=== PATIENT | female | born 1930 | race Caucasian/White ===

== ENCOUNTER 2016-06-26 07:30 | Inpatient (IN) | payer MEDICARE ==
[~2016-06-26] VITALS: Ht 152.4 cm; Wt 68.5 kg
[2016-06-26] VITALS (56 sets, daily range): BP systolic 139–209; BP diastolic 56–83; PULSE 68–87; RESP 12–94; TEMP 97.2–98; O2SAT 94–100; Ht 152.4 cm; Wt 68.5 kg
[~2016-06-26 07:30] MED LIST: ACET-62 PO; AMLO5TAB2 PO; ASPI-557 PO; CALC1TAB PO; DIPH25CA84 PO; DOCU-132 PO; HYDR-4181 PO; IBUP-1724 PO; LIDOCAINE 1% (10mg/ml) 2ml SDV INJ ONE; LORA0.5T2 PO; NIAC100T3 PO; NORMAL SALINE 1,000 ML IV ONE; NOZIN NASAL SWAB NS PRN; ONDA8TAB12 PO; SIMV20TA6 PO; TRIA1CAP6 PO
--- OUTSIDE RECORDS SUMMARY | 2016-06-26 07:56 | XMS REPORT | Continuity of Care Document ---
Author Author [facility] Organization [facility] Address Unknown Phone Unavailable Support Name Relationship Address Phone MIKALA GOLDSTEIN MD Caregiver [address] [place] [address] Unavailable TYE ROSARIO MD Caregiver [address] [place] [address] Unavailable JERI TAPIA DPOA Next Of Kin [address] [place], [place] [id number] Insurance Providers Guarantor Alexi Barajas Address [address] [facility] [address] [place] [address] Email [email or web address] Payer Medicareadvantra Ppo Policy Number [id number] Subscriber's Name Alexi Barajas Relationship 18 Self Group Number [id number] Advance Directives Directive Response Recorded Date/Time Ordered Resuscitation Status Full Code 05/14/16 3:24pm Resuscitation Documents on File Yes 05/15/16 8:54am DPOA for Healthcare Only Yes 05/15/16 8:54am Living Will Yes 05/15/16 8:54am Problems Active Problems Medical Problem Onset Date Status Nausea & vomiting Unknown Acute Nausea & vomiting Unknown Acute Past Problems Medical Problem Onset Date Unstable angina Unknown Medications Current Home Medications Medication Dose Units Route Directions Days Qty Instructions Start Date Acetaminophen (Tylenol Extra Strength) 500 Mg Tablet 1,000 Mg Oral Every 8 Hours as needed for Pain 04/01/11 Amlodipine Besylate (Norvasc) 5 Mg Tablet 5 Mg Oral Daily Aspirin (Baby Aspirin) 81 Mg Tab.chew 81 Mg Oral Daily 11/02/09 Calcium Carbonate/Vitamin D3 (Calcium + D 600 Mg Tablet) 1 Tab Tablet 1 Tab Oral Twice A Day 09/22/10 Docusate Sodium (Dulcolax Stool Softener) 100 Mg Capsule 100 Mg Oral Daily as needed for Stool Softening 12/13/15 Fluoxetine Hcl 10 Mg Tablet 10 Mg Oral Daily 12/13/15 Hydralazine Hcl (Apresoline) 50 Mg Tablet 50 Mg Oral Twice A Day 03/11/10 Ipratropium [place] 21 Mcg [place] 1 [place] Each Nostril Three Times A Day as needed for Prn Orders 04/01/11 Lorazepam 0.5 Mg Tablet 0.5 Mg Oral Three Times A Day as needed for Anxiety 09/22/10 Metoprolol Tartrate 25 Mg Tablet 25 Mg Oral Daily 11/02/09 Niacin 100 Mg Tablet 100 Mg Oral Give With Breakfast as needed for Prn Orders 12/13/15 Ondansetron Hcl 8 Mg Tablet 4 Mg Oral Every 6 Hours as needed for Nausea 12/13/15 Ranitidine Hcl (Zantac) 150 Mg Tablet 150 Mg Oral Daily as needed for Acid Reflux 12/13/15 Simvastatin (Zocor) 20 Mg Tablet 20 Mg Oral Bedtime 11/02/09 Triamterene/Hydrochlorothiazid (Triamterene-Hctz 37.5/25 Tb) 1 Tab Tablet 1 Tab Oral Daily 09/22/10 Past Home Medications Medication Directions Ordered Status Acetaminophen 500 Mg , As Needed 11/02/09 Discontinued Calcium Carbonate/Vitamin D3 (Calcium 600 + D Tablet) 1 Tab Tablet, Twice A Day 11/02/09 Discontinued Clopidogrel Bisulfate (Plavix) 75 Mg Tablet, 75 Mg Oral Daily 09/22/10 Discontinued Dulcolax , As Needed 11/02/09 Discontinued Fish Oil/Sloan-3 Fatty Acids (Sloan 3 Fish Oil 1,000 Mg Cap) 1 Cap Capsule, Bedtime 01/26/08 Discontinued Hydralazine Hcl 50 Mg Tablet, Three Times A Day 11/02/09 Discontinued Ipratropium 0.06% , As Needed 11/02/09 Discontinued Ipratropium [place] 0.2 Mg/Ml Solution, 0.2 Mg Inhalation Three Times A Day 09/22/10 Discontinued Lorazepam 0.5MG , As Needed 11/02/09 Discontinued Niacin 100 Mg Tablet, Daily 11/02/09 Discontinued Ondansetron (Zofran Odt) 4 Mg/Udtablet Tab.rapdis, 4 Mg Oral Every 4-6 Hours for Nausea 07/15/13 Discontinued Solifenacin (Vesicare) 5 Mg Tablet, 5 Mg Oral 10/21/10 Discontinued Triamterene/Hydrochlorothiazid (Maxzide-25 Mg Tablet) 1 Udtab Tablet, 1 Udtab Oral Daily 09/22/10 Discontinued Triamterene/Hydrochlorothiazid (Triamterene-Hctz 37.5/25 Tb) 1 Tab Tablet, Daily 11/02/09 Discontinued Triamterene/Hydrochlorothiazid (Dyazide 37.5/25 Mg) 1 Cap Capsule, 1 Cap Oral Daily 03/11/10 Discontinued Zantac 150 , As Needed 11/02/09 Discontinued Social History Social History Problem Response Recorded Date/Time Onset Date Status Reason for Hospitalization COLONOSCOPY 05/15/2016 11:18am Not Applicable Not Applicable Chewing Tobacco Status No 07/15/2013 9:22am Not Applicable Not Applicable Hx Substance Use No 05/15/2016 9:01am Not Applicable Not Applicable Hx Alcohol Use Y WINE 2 X MO 05/15/2016 9:01am Not Applicable Not Applicable Has the pt used tobacco in the last 12 months No 05/15/2016 9:01am Not Applicable Not Applicable Tobacco Usage none 07/15/2013 10:52am Not Applicable Not Applicable Query Response Start Date Stop Date Smoking Status Former smoker Hospital Discharge Instructions Instructions: Care Instructions: I was in the hospital because (patient own words): COLONOSCOPY Discharge Diet: Resume previous diet Discharge Activity: Restricted today, as tolerated tomorrow. Follow Up Appointments: None Pending Lab / Results: No Pending Lab Expected Signs/Symptoms: None Notify Physician If: Severe abdominal pain. During Business Hours:: Please call the physician's office at [phone] and choose option 2. 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 Goldstein. Pain Management/Treatment: N/A Wound/Incision Care: N/A Condition at time of discharge: Good Plan of Care Discharge Date 05/15/16 11:55am Instructions/Education Provided [facility] Surgical Services Colonoscopy (DC) Prescriptions See Medication Section Functional Status Query Response Date Recorded Ability to complete ADL's impeded by No change May 15, 2016 8:54am Allergies, Adverse Reactions, Alerts Allergen Type Severity Reaction Status Last Updated Codeine Adverse Reaction Unknown UPSET STOMACH Active 05/15/16 Immunizations Query Response on File Recorded Date/Time Hx Influenza Vaccination Y 201505/15/16 9:01am Hx Pneumococcal Vaccination Y WITH IN 5 YRS 05/15/16 9:01am Hx Tetanus, Diptheria, Pertussis Yes 07/15/13 9:22am Hx Influenza Vaccination Y 201505/15/16 9:01am Hx Tetanus, Diptheria, Pertussis Yes 07/15/13 9:22am Vital Signs Acute Vital Signs Vital Response Date/Time Temperature (Fahrenheit) 98.0 deg F (96.8 - 99.1) 05/15/2016 11:25am Temperature (Calculated Celsius) 36.43262 degrees C (36.0 - 37.3) 05/15/2016 11:25am Temperature Source Oral 05/15/2016 11:25am Pulse Rate (adult) 68 bpm (60 - 100) 05/15/2016 11:40am Respiratory Rate 16 breaths/min (10 - 20) 05/15/2016 11:40am O2 Sat by Pulse Oximetry 98 % (90 - 100) 05/15/2016 11:40am Oxygen Delivery Method Room Air 05/15/2016 11:40am Blood Pressure 136/68 mm Hg 05/15/2016 11:40am Blood Pressure Source Automatic Cuff 05/15/2016 11:40am Height (Feet) 5 feet 05/15/2016 8:31am Height (Inches) 0.50 inches 05/15/2016 8:31am Weight (Kilograms) 65.200 kg 05/15/2016 8:31am Body Mass Index (BMI) 27.6 05/15/2016 8:31am Results Laboratory Results Test Name Result Units Flags Reference Collection Date/Time Result Date/ Time Comments White Blood Count 9.1 T/MM3 4.5-11.0 04/23/2016 12:10pm 04/23/2016 12: 50pm Red Blood Count 4.71 M/MM3 4.00-5.20 04/23/2016 12:10pm 04/23/2016 12: 50pm Hemoglobin 12.0 GM/DL 12-16 04/23/2016 12:10pm 04/23/2016 12:50pm Hematocrit 38.4 % 36-46 04/23/2016 12:10pm 04/23/2016 12:50pm Mean Corpuscular Volume 81.5 UM3 80-100 04/23/2016 12:10pm 04/23/2016 12:50pm Mean Corpuscular Hemoglobin 25.5 UUG L 26-34 04/23/2016 12:10pm 2016 12:50pm Mean Corpuscular Hemoglobin Concent 31.3 GM/DL 31-37 04/23/2016 12:10pm 04/23/2016 12:50pm RDW Standard Deviation 43.2 FL 36.9-50.2 04/23/2016 12:10pm 04/23/2016 12:50pm Platelet Count 288 T/MM3 130-400 04/23/2016 12:10pm 04/23/2016 12:50pm Mean Platelet Volume 10.5 UM3 9.4-12.4 04/23/2016 12:10pm 04/23/2016 12 :50pm Neutrophils (%) (Auto) 75.9 % H 33-66 04/23/2016 12:10pm 04/23/2016 12: 50pm Lymphocytes (%) (Auto) 16.1 % L 23-45 04/23/2016 12:10pm 04/23/2016 12: 50pm Monocytes (%) (Auto) 6.3 % 0-9.0 04/23/2016 12:10pm 04/23/2016 12:50pm Eosinophils (%) (Auto) 1.5 % 0-4 04/23/2016 12:10pm 04/23/2016 12:50pm Basophils (%) (Auto) 0.1 % 0-2 04/23/2016 12:10pm 04/23/2016 12:50pm Immature Granulocyte % (Auto) 0.1 % 0.0-0.5 04/23/2016 12:10pm 2016 12:50pm Absolute Neutrophils (auto) 6.9 T/MM3 1.8-7.7 04/23/2016 12:10pm 2016 12:50pm Absolute Lymphocytes (auto) 1.5 T/MM3 1-4.8 04/23/2016 12:10pm 2016 12:50pm Absolute Monocytes (auto) 0.6 T/MM3 0-0.8 04/23/2016 12:10pm 2016 12:50pm Absolute Eosinophils (auto) 0.1 T/MM3 0-0.5 04/23/2016 12:10pm 2016 12:50pm Absolute Basophils (auto) 0.0 T/MM3 0-0.2 04/23/2016 12:10pm 2016 12:50pm Absolute Immature Granulocyte (auto 0.01 T/MM3 0.00-0.03 04/23/2016 12: 10pm 04/23/2016 12:50pm Icterus Index < 2 0-7 04/23/2016 12:10pm 04/23/2016 12:59pm Chemistry Specimen Hemolysis < 15 0-25 04/23/2016 12:10pm 04/23/2016 12:59pm 0-25: Specimen Exhibited No Hemolysis. Turbidity < 20 0-20 04/23/2016 12:10pm 04/23/2016 12:59pm Sodium Level 143 MEQ/L 134-144 04/23/2016 12:10pm 04/23/2016 12:59pm Potassium Level 4.3 MEQ/L 3.6-5 04/23/2016 12:10pm 04/23/2016 12:59pm Chloride Level 105 MEQ/L 98-107 04/23/2016 12:10pm 04/23/2016 12:59pm Carbon Dioxide Level 26 MEQ/L 22-30 04/23/2016 12:10pm 04/23/2016 12: 59pm Anion Gap 12 MEQ/L 5-15 04/23/2016 12:10pm 04/23/2016 12:59pm Blood Urea Nitrogen 24.0 MG/DL H 7-17 04/23/2016 12:10pm 04/23/2016 12: 59pm Creatinine 1.0 MG/DL 0.7-1.2 04/23/2016 12:10pm 04/23/2016 12:59pm BUN/Creatinine Ratio 24 RATIO 6-26 04/23/2016 12:10pm 04/23/2016 12: 59pm Glomerular Filtration Rate Calc 53 04/23/2016 12:10pm 04/23/2016 12 :59pm Glucose Level 103 MG/DL 65-110 04/23/2016 12:10pm 04/23/2016 12:59pm Calculated Osmolality 279 MOSM/KG 261-280 04/23/2016 12:10pm 2016 12:59pm Calcium Level 9.3 MG/DL 8.4-10.2 04/23/2016 12:10pm 04/23/2016 12:59pm Total Bilirubin 0.60 MG/DL 0.20-1.30 04/23/2016 12:10pm 04/23/2016 12: 59pm Alkaline Phosphatase 92 U/L 38-126 04/23/2016 12:10pm 04/23/2016 12: 59pm Total Protein 7.2 G/DL 6.3-8.2 04/23/2016 12:10pm 04/23/2016 12:59pm Albumin 4.3 G/DL 3.5-5.0 04/23/2016 12:10pm 04/23/2016 12:59pm Globulin 2.9 G/DL 2.4-3.6 04/23/2016 12:10pm 04/23/2016 12:59pm Albumin/Globulin Ratio 1.5 RATIO 1.1-2.2 04/23/2016 12:10pm 04/23/2016 12:59pm Aspartate Amino Transf (AST/SGOT) 24 U/L 14-36 04/23/2016 12:10pm 04/23 12:59pm Alanine Aminotransferase (ALT/SGPT) 26 U/L 9-52 04/23/2016 12:10pm 03/2017 12:59pm Procedures Procedure Status Date Provider(s) Ct abd & pelv w/contrast Completed 04/27/16 995943"INFUSION, NORMAL SALINE SOLUTION , 250 CC" Completed 04/27/16 [id number]"LOW OSMOLAR CONTRAST MATERIAL, 300-399 MG/ML IODINE C Completed X-ray exam of shoulder Completed 04/23/16 Ct thorax w/o dye Completed 05/04/16 Colonoscopy with polypectomy and biopsy Completed 05/15/16 MIKALA GOLDSTEIN MD Encounters Encounter Location Arrival/Admit Date Discharge/Depart Date Attending Provider Registered [facility] 05/15/16 8:04am MIKALA GOLDSTEIN MD Registered [facility] 05/04/16 2:22pm TYE ORSARIO MD Registered [facility] 04/27/16 12:21pm TYE ROSARIO MD Registered [facility] 04/23/16 12:37pm TYE ROSARIO MD Registered [facility] 04/23/16 12:23pm TYE ROSARIO MD
--- OUTSIDE RECORDS SUMMARY | 2016-06-26 07:56 | XMS REPORT | Referral Summary ---
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 Name Role Phone Eva Duval Primary Care Physician [phone] Encounter VC Date(s): 05/27/16 - 05/27/16 [facility] [address] [place], [place] [address] Discharge Disposition: 01-Home or Self Care Attending Physician: Rickey Jimenes MD Admitting Physician: Rickey Jimenes MD Vital Signs Most recent to 1 oldest [Reference Range]: Temperature Temporal 36.4 degC Artery [36.3-37.8 (05/27/16 9:23 AM) degC] Peripheral Pulse 81 bpm Rate [60-100 bpm] (05/27/16 6:06 AM) Heart Rate Monitored 55 bpm [60-100 bpm] *LOW* (05/27/16 9:23 AM) Respiratory Rate 16 br/min [14-20 br/min] (05/27/16 9:23 AM) Blood Pressure 182/58 mmHg [90-140/60-90 mmHg] *HI* (05/27/16 9:23 AM) Mean Arterial 114 mmHg Pressure, Cuff (05/27/16 9:23 AM) SpO2 96 % (05/27/16 9:23 AM) Problem List Condition Effective Dates Status Health Status Informant Acute Resolved pain(Confirmed) Anxiety(Confirmed) Active patient Coronary artery Active patient disease(Confirmed) Hyperlipidemia(Confi Active patient rmed) Hypertension(Confirm Active patient ed) Oxygen Active patient deficiency(Confirmed )1 Breast 12/14/79 Active patient cancer(Confirmed) Depression(Confirmed Active patient ) Tissue perfusion Resolved alteration(Confirmed )2 1WEARS OXYGEN AT HS 2Problem added automatically by system based on initiation of Tissue Perfusion Cerebral Plan of Care Allergies, Adverse Reactions, Alerts Substance Reaction Severity Status codeine Active Dust Active Medications acetaminophen 500 mg oral tablet 500 mg 1 tabs, Oral, q4hr, as needed for pain, # 50 tabs, 0 Refill(s) Start Date: 05/27/16 Status: Ordered amLODIPine 5 mg oral tablet 5 mg 1 tabs, Oral, Daily, 0 Refill(s) Start Date: 12/14/15 Status: Ordered aspirin 81 mg, Oral, Daily, 0 Refill(s) Start Date: 12/14/15 Status: Ordered calcium-vitamin D 500 mg-200 intl units oral tablet 1 tabs, Oral, BID, # 60 tabs, 0 Refill(s) Start Date: 05/27/16 Status: Ordered Dulcolax Stool Softener 100 mg oral capsule 100 mg 1 caps, Oral, BID, as needed for constipation, # 20 caps, 0 Refill(s) Start Date: 05/27/16 Status: Ordered hydrALAZINE 50 mg oral tablet 50 mg 1 tabs, Oral, BID, 0 Refill(s) Start Date: 12/14/15 Status: Ordered ibuprofen 200 mg oral capsule 400 mg 2 caps, Oral, q4hr, as needed for pain, # 120 caps, 0 Refill(s) Start Date: 05/27/16 Status: Ordered ipratropium 21 mcg/inh (0.03%) nasal spray 1 sprays, Nasal, TID, Nasal Congestion, 0 Refill(s) Start Date: 12/14/15 Status: Ordered LORazepam 0.5 mg oral tablet 0.5 mg 1 tabs, Oral, TID, as needed for anxiety, 0 Refill(s) Start Date: 12/14/15 Status: Ordered simvastatin 20 mg oral tablet 20 mg 1 tabs, Oral, Bedtime (once a day), 0 Refill(s) Start Date: 12/14/15 Status: Ordered triamterene-hydrochlorothiazide 37.5 mg-25 mg oral tablet 1 tabs, Oral, Daily, 0 Refill(s) Start Date: 12/14/15 Status: Ordered Zantac 150 mg, Oral, Daily, ACID REFLUX, 0 Refill(s) Start Date: 05/27/16 Status: Ordered Zofran 4 mg oral tablet 4 mg 1 tabs, Oral, q4hr, Nausea or Vomiting | as needed for nausea/vomiting, # 10 tabs, 0 Refill(s) Start Date: 05/27/16 Status: Ordered Results Hematology Most recent to 1 oldest [Reference Range]: WBC [4.8-10.8 12.2 10*3/uL 10*3/uL] *HI* (05/27/16 6:09 AM) RBC [4.00-5.20] 4.82 (05/27/16 6:09 AM) Hgb [12.0-16.0 11.7 gm/dL gm/dL] *LOW* (05/27/16 6:09 AM) Hct [37.0-47.0 %] 38.7 % (05/27/16 6:09 AM) MCV [82.0-99.0 fL] 80.3 fL *LOW* (05/27/16 6:09 AM) MCH [27.0-32.0 pg] 24.3 pg *LOW* (05/27/16 6:09 AM) MCHC [32.0-36.0 30.2 gm/dL gm/dL] *LOW* (05/27/16 6:09 AM) RDW [11.5-14.5 %] 15.9 % *HI* (05/27/16 6:09 AM) Platelet [150-400 269 10*3/uL 10*3/uL] (05/27/16 6:09 AM) MPV [9.4-12.4 fL] 10.2 fL (05/27/16 6:09 AM) Immature 0.4 % Granulocytes (05/27/16 6:09 AM) [0.0-1.0 %] Neutrophils [51-75 79 % %] *HI* (05/27/16 6:09 AM) Lymphocytes [20-46 13 % %] *LOW* (05/27/16 6:09 AM) Monocytes [4-11 %] 7 % (05/27/16 6:09 AM) Eosinophils [0-4 %] 1 % (05/27/16 6:09 AM) Basophils [0-2 %] 0 % (05/27/16 6:09 AM) Neutro Absolute 9.68 [1.90-7.00] *HI* (05/27/16 6:09 AM) Lymph Absolute 1.54 [0.80-3.30] (05/27/16 6:09 AM) [place] Absolute 0.80 [0.30-1.00] (05/27/16 6:09 AM) Eos Absolute 0.14 [0.00-0.50] (05/27/16 6:09 AM) Baso Absolute 0.02 [0.00-0.20] (05/27/16 6:09 AM) Nucleated RBC 0.0 /100 WBC Automated [0 /100 (05/27/16 6:09 AM) WBC] Coagulation Most recent to 1 oldest [Reference Range]: INR [0.9-1.2] 1.0 (05/27/16 6:09 AM) PTT [25.0-35.0 25.8 seconds seconds] (05/27/16 6:09 AM) Immunizations No data available for this section Procedures Procedure Date Related Diagnosis Body Site Catheterization Left Heart with Coronary 12/15/15 Angiography1 Back fusion 12/12/09 CABG x 3 - Coronary artery bypass grafts x 3 12/12/06 Cholecystectomy 12/13/79 Appendectomy Back Breast lumpectomy2 Cataracts Procedure3 Shoulder4 Surgery5 Total abdominal hysterectomy 1auto-populated from documented surgical case 2RIGHT 3LEFT BREAST NODE DISSECTION 4RIGHT 5IT BAND RELEASE Social History Social History Type Response Smoking Status Former smoker; Number of years: 20 Assessment and Plan No data available for this section"
--- OUTSIDE RECORDS SUMMARY | 2016-06-26 07:56 | XMS REPORT | Continuity of Care Document ---
Author Author [facility] Organization [facility] Address Unknown Phone Unavailable Support Name Relationship Address Phone MIKALA GOLDSTEIN MD Caregiver [address] [place] [address] Unavailable TYE ROSARIO MD Caregiver [address] [place] [address] Unavailable JERI TAPIA DPOA Next Of Kin [address] [place], [place] [id number] Insurance Providers Guarantor Alexi Barajas Address [address] [facility] [address] [place] [address] Email [email or web address] Payer Medicareadvantra Ppo Policy Number [id number] Subscriber's Name JuanAlexi Relationship 18 Self Group Number [id number] Advance Directives Directive Response Recorded Date/Time Resuscitation Documents on File Yes 06/15/16 9:08am DPOA for Healthcare Only Yes 06/15/16 9:08am Living Will Yes 06/15/16 9:08am Problems Active Problems Medical Problem Onset Date Status Nausea & vomiting Unknown Acute Nausea & vomiting Unknown Acute Past Problems Medical Problem Onset Date Unstable angina Unknown Medications Current Home Medications Medication Dose Units Route Directions Days Qty Instructions Start Date Acetaminophen 500 Mg Tablet 1-2 Tab Oral As Needed as needed for Pain Do not exceed 3,200 mg of acetaminophen in a 24 hours period. 06/15/16 Amlodipine Besylate 5 Mg Tablet 5 Mg Oral Daily 06/15/16 Aspirin (Aspir 81) 81 Mg Tablet. 1 Tab Oral Daily 06/15/16 Calcium Carbonate/Vitamin D3 (Caltrate 600 + D Tablet) 1 Each Tablet 1 Tab Oral Twice A Day 06/15/16 Diphenhydramine Hcl (Benadryl) 25 Mg Capsule 1-2 Cap Oral Every 6 Hours as needed for Allery Symptoms 06/15/16 Docusate Sodium (Dulcolax Stool Softener) 100 Mg Capsule 1 Cap Oral Daily as needed for Stool Softening 06/15/16 Hydralazine Hcl 50 Mg Tablet 1 Tab Oral Twice Daily With Meals BEST TAKEN WITH MEALS. 06/15/16 Ibuprofen 200 Mg Tablet 1-2 Tab Oral Every 4 Hours as needed for Pain 06/15/16 Ipratropium 0.06% 1 [place] Each Nostril As Needed 06/15/16 Lorazepam 0.5 Mg Tablet 0.5 Mg Oral Daily as needed for Anxiety 06/15/16 Niacin 100 Mg Tablet 1 Tab Oral As Needed 06/15/16 Ondansetron (Ondansetron Odt) 8 Mg Tab.rapdis 0.5 Tab Oral Every 6 Hours as needed for Nausea 06/15/16 Ranitidine Hcl (Zantac) 150 Mg Tablet 150 Mg Oral Daily as needed for Acid Reflux 06/15/16 Simvastatin 20 Mg Tablet 20 Mg Oral Bedtime Take 1 tablet, by mouth , 1 time a day (at BEDTIME). 06/15/16 Triamterene/Hydrochlorothiazid (Triamterene-Hctz 37.5-25 Mg Cp) 1 Each Capsule 1 Cap Oral Daily 06/15/16 Past Home Medications Medication Directions Ordered Status Acetaminophen 500 Mg , As Needed 11/02/09 Discontinued Calcium Carbonate/Vitamin D3 (Calcium 600 + D Tablet) 1 Tab Tablet, Twice A Day 11/02/09 Discontinued Clopidogrel Bisulfate (Plavix) 75 Mg Tablet, 75 Mg Oral Daily 09/22/10 Discontinued Dulcolax , As Needed 11/02/09 Discontinued Fish Oil/[place]-3 Fatty Acids ([place] 3 Fish Oil 1,000 Mg Cap) 1 Cap Capsule, Bedtime 01/26/08 Discontinued Hydralazine Hcl 50 Mg Tablet, Three Times A Day 11/02/09 Discontinued Ipratropium 0.06% , As Needed 11/02/09 Discontinued Ipratropium [place] 0.2 Mg/Ml Solution, 0.2 Mg Inhalation Three [...] Problem Response Recorded Date/Time Onset Date Status Chewing Tobacco Status No 07/15/2013 9:22am Not Applicable Not Applicable Hx Substance Use No 05/15/2016 9:01am Not Applicable Not Applicable Hx Alcohol Use Y WINE 2 X MO 05/15/2016 9:01am Not Applicable Not Applicable Has the pt used tobacco in the last 12 months No 06/15/2016 9:14am Not Applicable Not Applicable Tobacco Usage none 07/15/2013 10:52am Not Applicable Not Applicable Query Response Start Date Stop Date Smoking Status Former smoker Hospital Discharge Instructions Current inpatient/outpatient. Discharge instructions are currently unavailable. Plan of Care Current inpatient/outpatient. The plan of care is currently unavailable Functional Status Query Response Date Recorded Mobility Status Ambulatory June 15, 2016 9:38am Assistive Devices None June 15, 2016 9:38am Activity Limitations None June 15, 2016 9:38am Feeding Ability Independent June 15, 2016 9:38am Toileting Ability Independent June 15, 2016 9:38am Grooming Ability Independent June 15, 2016 9:38am Dressing Ability Independent June 15, 2016 9:38am Driving Ability Independent June 15, 2016 9:38am Housework Ability Independent June 15, 2016 9:38am Meal Preparation Ability Independent June 15, 2016 9:38am Stair Climbing Ability Independent June 15, 2016 9:38am Ability to complete ADL's impeded by No change June 15, 2016 9:38am Cognitive/Perceptual Impairments Impaired vision Impaired hearing June 15, 2016 9:38am Visual Assistive Devices Glasses With patient June 15, 2016 9:38am Hearing Assistive Devices Left hearing aid Right hearing aid With patient June 15, 2016 9:38am Preferred Method of Learning Reading Demonstration Listening June 15, 2016 9:38am Allergies, Adverse Reactions, Alerts Allergen Type Severity Reaction Status Last Updated Codeine Adverse Reaction Unknown UPSET STOMACH Active 06/15/16 Immunizations Query Response on File Recorded Date/Time Hx Influenza Vaccination Y 201506/15/16 9:14am Hx Pneumococcal Vaccination Y 201306/15/16 9:14am Hx Tetanus, Diptheria, Pertussis Yes 07/15/13 9:22am Hx Influenza Vaccination Y 201506/15/16 9:14am Hx Tetanus, Diptheria, Pertussis Yes 07/15/13 9:22am Vital Signs Acute Vital Signs Vital Response Date/Time Temperature (Fahrenheit) 95.9 deg F (96.8 - 99.1) 06/15/2016 12:40pm Temperature (Calculated Celsius) 35.73776 degrees C (36.0 - 37.3) 06/15/2016 12:40pm Temperature Source Oral 06/15/2016 12:40pm Pulse Rate (adult) 63 bpm (60 - 100) 06/15/2016 2:00pm Respiratory Rate 20 breaths/min (10 - 20) 06/15/2016 12:40pm O2 Sat by Pulse Oximetry 96 % (90 - 100) 06/15/2016 2:00pm Oxygen Delivery Method Room Air 06/15/2016 2:00pm Oxygen Delivery Method Room Air 06/15/2016 9:00am Blood Pressure 146/57 mm Hg 06/15/2016 2:00pm Blood Pressure Source Automatic Cuff 06/15/2016 2:00pm Height (Feet) 5 feet 06/15/2016 10:18am Height (Inches) 0.50 inches 06/15/2016 10:18am Weight (Kilograms) 66.700 kg 06/15/2016 10:18am Body Mass Index (BMI) 28.3 06/15/2016 10:18am Results Laboratory Results Test Name Result Units [...] 26 U/L 9-52 04/23/2016 12:10pm 03/2017 12:59pm Carcinoembryonic Antigen 11.30 UG/L H 0-3.0 05/15/2016 11:48am 2016 12:44pm Prothromb Time International Ratio 1.06 H 0.76-1.04 06/15/2016 10:20am 06/15/2016 10:39am THERAPUTIC RANGE=2.00-3.00 FOR ANTI-THROMBOSIS THERAPUTIC RANGE=2.50-3.50 FOR IMPLANTED VALVE Name: ALEXI BARAJAS Unit #: [id number] : 1930 Sex: F Admit Date: Loc / Svc: ANTOINETTE Discharge Date: DIAGNOSTIC IMAGING REPORT Report #: [id number] [facility] CRISTY Roche Indication: ITS.REASON: E04.1 NONTOXIC SINGLE THYROID NODULE PROCEDURE: US THYROID: Encounter: Initial Comparison: None Technique: High-resolution sonography of the thyroid gland utilizing grayscale and color flow imaging was performed. Right lobe: 3.2 x 1.3 x 1.2 cm. Complex predominantly solid nodule involving the inferior anterior aspect of the right lobe measures 1.3 x 1.2 x 0.8 cms. It is fairly well-defined without calcifications. A second small cystic lesion is seen measuring 4 mm which appears to lie medial to the larger nodule. Left lobe: 3.2 x 1.2 x 0.9 cms. Homogeneous echotexture. No mass or nodule. Isthmus: 3.0 mm AP dimension; no masses or nodules. Impression: Two nodular foci of the right thyroid lobe; the larger one is is complex measuring 1.3 cm greatest dimension without highly suspicious features; this is an indeterminate nodule and recommend six month sonographic follow-up/surveillance. . Procedures Procedure Status Date Provider(s) Ct abd & pelv w/contrast Completed 04/27/16952874"INFUSION, NORMAL SALINE SOLUTION , 250 CC" Completed 04/27/16701622"LOW OSMOLAR CONTRAST MATERIAL, 300-399 MG/ML IODINE C Completed X-ray exam of shoulder Completed 04/23/16 Ct thorax w/o dye Completed 05/04/16 Routine venipuncture Completed 05/15/16 Colonoscopy and biopsy Completed 05/15/16 MIKALA GOLDSTEIN MD Colonoscopy w/lesion removal Completed 05/15/16 MIKALA GOLDSTEIN MD Carcinoembryonic antigen Completed 05/15/16 Tissue exam by pathologist Completed 05/15/16 Immunohisto antb addl slide Completed 05/15/16 Immunohisto antb 1st stain Completed 05/15/16 PROPOFOL INJ 500 MG/50ML Completed 05/15/16 [id number]"INFUSION, NORMAL SALINE SOLUTION , 1000 CC" Completed 05/15/16 Encounters Encounter Location Arrival/Admit Date Discharge/Depart Date Attending Provider Registered [facility] 06/15/16 8:50am MIKALA GOLDSTEIN MD Departed [facility] 06/15/16 8:49am 06/15/16 2:35pm LISA LOPES DO Registered [facility] 06/10/16 8:13am MIKALA GOLDSTEIN MD Departed [facility] 05/15/16 8:04am 05/15/16 11 :55am MIKALA GOLDSTEIN MD Registered [facility] 05/04/16 2:22pm TYE ROSARIO MD Registered [facility] 04/27/16 12:21pm TYE ROSARIO MD Registered [facility] 04/23/16 12:37pm TYE ROSARIO MD Registered [facility] 04/23/16 12:23pm TYE ROSARIO MD
[2016-06-26] MEDS ORDERED: ERTAPENEM 1 G in NORMAL SALINE 100 ML IV ONE (08:00)
[2016-06-26] MEDS ORDERED: ENOXAPARIN 40 MG/0.4 ML INJECTION SQ ONE (08:00)
[2016-06-26 08:33] LABS: BASOPHILS % (AUTO) 0.2 % (0-2); EOSINOPHILS # (AUTO) 0.1 T/MM3 (0-0.5); EOSINOPHILS % (AUTO) 0.9 % (0-4); HCT - HEMATOCRIT 38.3 % (36-46); IMMATURE GRANULOCYTE # (AUTO) 0.02 T/MM3 (0.00-0.03); IMMATURE GRANULOCYTE % (AUTO) 0.2 % (0.0-0.5); LYMPHOCYTES # (AUTO) 1.1 T/MM3 (1-4.8); LYMPHOCYTES % (AUTO) 9.2 % (23-45); MEAN CORPUSCULAR HGB 24.1 UUG (26-34); MEAN CORPUSCULAR HGB CONC(MCHC 31.3 GM/DL (31-37); MEAN CORPUSCULAR VOLUME 77.1 UM3 (80-100); MEAN PLATELET VOLUME 10.1 UM3 (9.4-12.4); MONOCYTES # (AUTO) 0.6 T/MM3 (0-0.8); MONOCYTES % (AUTO) 5.5 % (0-9.0); NEUTROPHILS #(AUTO)-ABSOLUTE 9.6 T/MM3 (1.8-7.7); RED BLOOD COUNT 4.97 M/MM3 (4.00-5.20); WBC - WHITE BLOOD COUNT 11.4 T/MM3 (4.5-11.0)
[2016-06-26 08:42] LABS: ALBUMIN 4.3 G/DL (3.5-5.0); ALBUMIN/GLOBULIN RATIO 1.2 RATIO (1.1-2.2); ALKALINE PHOSPHATASE 100 U/L (38-126); ALT (SGPT) 22 U/L (9-52); ANION GAP 13 MEQ/L (5-15); AST (SGOT) 24 U/L (14-36); BUN/CREATININE RATIO 18 RATIO (6-26); CALCIUM 9.9 MG/DL (8.4-10.2); CHLORIDE 110 MEQ/L (98-107); CO2 - CARBON DIOXIDE 24 MEQ/L (22-30); CREATININE 0.9 MG/DL (0.7-1.2); GLOMERULAR FILTRATION RATE 59; GLUCOSE 123 MG/DL (65-110); POTASSIUM 3.3 MEQ/L (3.6-5); SODIUM 147 MEQ/L (134-144); TOTAL PROTEIN 7.8 G/DL (6.3-8.2)
[2016-06-26] MEDS: ENOXAPARIN 40 MG/0.4 ML INJECTION SQ SCH (09:00)
[2016-06-26] MEDS ORDERED: FENTANYL 250mcg/5ml INJECTION ONE ×2 (09:44→11:44)
[2016-06-26] MEDS ORDERED: MIDAZOLAM 2mg/2ml INJECTION ONE (09:44)
[2016-06-26] MEDS ORDERED: ROCURONIUM 50mg/5ml INJECTION IV ONE ×2 (09:46→11:00)
[2016-06-26] MEDS ORDERED: PROPOFOL 200mg 20 ML IV ONE (09:46)
[2016-06-26] MEDS ORDERED: LIDOCAINE (2%) 100 MG/5 ML PF SYRINGE IV ONE (09:46)
[2016-06-26] MEDS ORDERED: EPHEDRINE SULFATE 50mg/ml INJECTION ONE (10:15)
[2016-06-26] MEDS ORDERED: SALINE FLUSH 10ml SYRINGE ONE ×2 (10:15→12:35)
[2016-06-26] MEDS ORDERED: HYDROMORPHONE 2mg/ml INJECTION ONE (10:59)
[2016-06-26] MEDS ORDERED: DEXAMETHASONE 4mg/ml - 1ml INJECTION IV ONE (11:00)
[2016-06-26] MEDS ORDERED: SALINE FLUSH 10ml SYRINGE IVF ONE ×2 (11:00)
[2016-06-26] MEDS ORDERED: FENTANYL 250mcg/5ml INJECTION IV ONE ×2 (11:00)
[2016-06-26] MEDS ORDERED: ONDANSETRON 4mg/2ml INJECTION IV ONE (11:00)
[2016-06-26] MEDS ORDERED: MIDAZOLAM 2mg/2ml INJECTION IV ONE (11:00)
[2016-06-26] MEDS ORDERED: SUGAMMADEX 200 MG/2 ML INJECTION IV ONE ×2 (11:00→12:22)
[2016-06-26] MEDS ORDERED: HYDROMORPHONE 2mg/ml INJECTION IV ONE (11:00)
[2016-06-26] MEDS ORDERED: LIDOCAINE 2% (20mg/ml) 5ml PF SDV INFIL ONE (11:00)
[2016-06-26] MEDS ORDERED: EPHEDRINE SULFATE 50mg/ml INJECTION IM ONE (11:00)
--- NOTE | 2016-06-26 11:33 | ANESPREOP ---
Anesthesia Record Date and Time DATE: 06/26/16 TIME: 11:31 Proposed Surgical Procedure LAPAROTOMY WITH OPEN RIGHT HEMICOLECTOMY Allergies: Coded Allergies: codeine (Unverified Adverse Reaction, Unknown, UPSET STOMACH, 06/25/16) Ht/Wt/BMI Height: 5 ' 0.00 " Weight: 64.500 kg BMI: 27.8 kg/m2 Vital Signs Date Time Temp Pulse Resp B/P Pulse Ox O2 Delivery O2 Flow Rate FiO2 06/26/16 08:16 98.0 83 14 182/78 98 Room Air Medications Inpatient Medications Current Medications Medications (Trade) Dose Ordered Sig/Caty Start Time Stop Time Status Last Admin Dose Admin Multi-Ingredient Antiseptic (Nozin Nasal Swab) 3 each PREOP PRN 06/26/16 07:00 06/26/16 09:19 3 EACH Acetaminophen (Acetaminophen) 500 Mg Tablet, 1-2 TAB PO PRN PRN for PAIN, ( Reported) Do not exceed 3,200 mg of acetaminophen in a 24 hours period. Last Taken: on 06/24/16 Amlodipine Besylate (Amlodipine Besylate) 5 Mg Tablet, 5 MG PO DAILY, (Reported) Last Taken: on 06/25/16 Aspirin (Aspir 81) 81 Mg Tablet.dr, 1 TAB PO DAILY, (Reported) Last Taken: on 06/22/16 Calcium Carbonate/Vitamin D3 (Caltrate 600 + D Tablet) 1 Each Tablet, 1 TAB PO BID, (Reported) Diphenhydramine HCl (Benadryl) 25 Mg Capsule, 1-2 CAP PO Q6H PRN for ALLERY SYMPTOMS, (Reported) Docusate Sodium (Dulcolax Stool Softener) 100 Mg Capsule, 1 CAP PO DAILY PRN for STOOL SOFTENING, (Reported) Last Taken: on 06/25/16 Hydralazine HCl (Hydralazine HCl) 50 Mg Tablet, 1 TAB PO BIDWM, (Reported) BEST TAKEN WITH MEALS. Last Taken: on 06/24/16 Ibuprofen (Ibuprofen) 200 Mg Tablet, 1-2 TAB PO Q4H PRN for PAIN, (Reported) Last Taken: on 06/25/16 Lorazepam (Lorazepam) 0.5 Mg Tablet, 0.5 MG PO DAILY PRN for ANXIETY, (Reported) Last Taken: on 06/26/16 0600 Niacin (Niacin) 100 Mg Tablet, 1 TAB PO PRN, ( Reported) Ondansetron (Ondansetron Odt) 8 Mg Tab.rapdis, 0.5 TAB PO Q6H PRN for NAUSEA, ( Reported) Simvastatin (Simvastatin) 20 Mg Tablet, 20 MG PO HS, (Reported) Take 1 tablet, by mouth, 1 time a day (at BEDTIME). Last Taken: on 06/24/16 Triamterene/Hydrochlorothiazid (Triamterene-Hctz 37.5-25 mg Cp) 1 Each Capsule, 1 CAP PO DAILY, (Reported) Last Taken: on 06/24/16 Currently on Beta Gabriela: No Medical/Surgical History Anesthesia PMH: Reports: *Angina (2015-HEART CATH. NEG. NOT CARDIAC RELATED), *Hypertension (TAKES MEDS), Anesthesia Reactions (N/V, SLOW WAKING UP, NO AIRWAY ISSUES), Arthritis (GENERALIZED), Cancer (ZAKI BREAST CANCER), Hiatal Hernia (HX), Reflux (HX), Denies: *Diabetes, *TX, Asthma, Blood Transfusion Reac , CHF, COPD, CVA/Stroke/TIA, Clotting Problems, Deep Vein Thrombosis, Glaucoma, Hepatitis, Malignant Hyperthermia, Pacemaker, Pneumonia, Renal Disease, Rheumatic Fever, Seizures, Sleep Apnea (USES 02 @ 1L/NC AT [facility]), Thyroid Disease , Tuberculosis Smoking Status: Former smoker (30 years ago) Has pt. smoked today?: No # of Packs per Day: 1 # of Years: 34 Use Chewing Tobacco?: No Second Hand Exposure: No Substance Use Type: does not use Alcohol Intake: a few times a month Last Drink: unknown HX of Last Menstrual Period: HYST. Past Surgical History Orthopedic Surgeries: Yes - ORIF HUMERUS; RT SHOULDER SCOPE,BACK FUSION Abdominal Surgeries: Yes - BENITO; APPY Genitourinary Surgeries: Cardiac Surgeries: Yes - TRIPLE BYPASS/ CAROTID ARTERY, HEART CATHETERIZATION Endocrine Surgeries: No Reproductive Surgeries: Yes - HYSTERECTOMY Neurological Surgeries: Yes - ELECTROENCEPHALOGRAPHY Ear Surgeries: No Nose Surgeries: No Throat Surgeries: Yes - TONSILLECTOMY Other Surgeries: Yes - PORTACATH; ZAKI LUMPECTOMY; CATARRACT ZAKI, EGD, IT BAND RELEASE Anesthesia Adverse Reactions: FOUND nausea and vomiting Family Hx of Anesthesia Advers: none Hx of Motion Sickness: No Pertinent Findings Laboratory Tests 06/26/16 08:23 EKG Rhythm: Sinus Rhythm Physical Exam Respiratory: Lungs clear Cardiovascular: FOUND Regular rate, rhythm Airway Assessment Mallampati Score: II TMD: 3 Fingerbreadths Neck Extension: Fair Overall Assessment: No Airway Concerns ASA: 3 Plan Anesthesia Plan: GETA Discussion Discussed risks/options/alternatives of anesthesia and questions answered. Patient consents. Nursing pain assessment noted. Present: Family Member, Friend Attestation Statement Prior to the delivery of any anesthetic medication, I examined the patient, developed the plan, obtained the patient's consent and discussed the risk and benefits of the procedure with the patient/guardian. Additional Information Pt very hard of hearing- has hearing aid in with a microphone to speak into. KARINA VILLAR CRNA Jun 26, 2016 11:33
[2016-06-26] MEDS ORDERED: ONDANSETRON 4mg/2ml INJECTION ONE (12:22)
[2016-06-26] MEDS ORDERED: DEXAMETHASONE 4mg/ml - 1ml INJECTION ONE (12:22)
--- NOTE | 2016-06-26 13:23 | GSPOSTPROC ---
Immediate Operative Note DATE: 06/26/16 TIME: 13:21 Postop Diagnosis: Cecal adenocarcinoma Surgical Procedure: Other (Open right hemicolectomy) Surgeon: Yudy Assisting Surgeon: Brook ASA: 3 MIKALA GOLDSTEIN MD Jun 26, 2016 13:23
[2016-06-26] MEDS ORDERED: PROMETHAZINE 25 MG INJECTION IV PRN (13:30)
[2016-06-26] MEDS ORDERED: LR 1,000 ML IV ONE (13:59)
--- NOTE | 2016-06-26 14:40 | NUR ---
Report: is received from OR staff. IV fluids is changed to NS at 100 ml/hr. See assessment. The monitor shows SR with BBB, rate 70's.
[2016-06-26] MEDS: NORMAL SALINE 1,000 ML IV SCH ×2 (15:00→23:28)
--- NOTE | 2016-06-26 15:03 | ANESPO ---
Post-Op Note Date 06/26/16 Time: 15:02 Status Pt Participated in Evaluation: Pt participated in person Vital Signs Date Time Temp Pulse Resp B/P Pulse Ox O2 Delivery O2 Flow Rate FiO2 06/26/16 14:38 97.8 06/26/16 14:35 81 15 160/70 98 Nasal Cannula 2.00 Respiratory Function: Airway patent Cardiovascular Function: Regular pulse Mental Status: Alert/oriented Pain Level Intensity: 3 Hydration: IV infusing Complications during Recovery None apparent Follow-Up Instructions Instructions Per Surgeon KARINA VILLAR CRNA Jun 26, 2016 15:02
[2016-06-26] MEDS: MORPHINE SULFATE 10 MG SYRINGE IV PRN ×4 (15:30→23:34)
--- NOTE | 2016-06-26 15:30 | NUR ---
Pain: 7/10 mid-abdominal pain. MS 5 mg IV is given slow push . IV fluids is infusing at 100ml/hr.
--- NOTE | 2016-06-26 15:40 | OPNOTEF ---
DATE OF OPERATION 06/26/2016 PREOPERATIVE DIAGNOSIS Cecal cancer. POSTOPERATIVE DIAGNOSIS Cecal cancer. OPERATION PERFORMED Cystoscopy and insertion of right ureteral catheter. SURGEON Saurav Amaya MD ANESTHESIA General endotracheal INDICATIONS Mrs. Martinez is an 85-year-old woman with a cecal tumor consistent with adenocarcinoma. Patient is about to undergo exploratory laparotomy and right hemicolectomy for the tumor by Dr. Jimenes. I was asked to insert ureteral catheter to protect the ureter during the surgery. DESCRIPTION OF PROCEDURE When I entered the operating room theatre, patient was already anesthetized and on a stirrup in the lithotomy position and prepped and draped in the usual fashion for cystoscopic procedure. A #21 [place] rigid cystoscope was inserted into the bladder. 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 No bladder tumor, foreign body or stone was seen. Right ureteral orifice was visualized and it was in the normal location and contour. Left ureteral orifice was also normal in location and contour. The right ureteral orifice was cannulated with a #6 [place] whistle-tip ureteral catheter and advanced 22 cm where good efflux of urine was obtained. The cystoscope was then removed with the ureteral catheter in place. A #16 [place] Rain catheter was inserted and bladder was drained. Ureteral catheter and the Rain catheter were then tied together with silk ligatures. Drainage bags were attached and case was turned over to Dr. Jimenes for colectomy. [facility]
--- NOTE | 2016-06-26 16:00 | NUR ---
Output: urine out this hour is 17 cc. Will monitor. Comfort: the patient is resting quietly at this time.
--- NOTE | 2016-06-26 17:00 | NUR ---
Urine output: [address] Jimenes is given status report. Fluid bolus orders are received. 500 ml NS bolus will be given.
[2016-06-26] MEDS ORDERED: NORMAL SALINE 500 ML IV ONE ×2 (17:30→20:30)
--- NOTE | 2016-06-26 17:30 | NUR ---
Pain: 10/10 pain mid abdom. MS 5 mg IV is given for pain.
--- NOTE | 2016-06-26 18:00 | NUR ---
Comfort: the patient is resting quietly.
--- NOTE | 2016-06-26 20:30 | NUR ---
LOW OUTPUT CALLED TO DR GOLDSTEIN. IV FLUID 500CC NS TO RUN IN ONE HOUR.
[2016-06-26] MEDS ORDERED: FAMOTIDINE 20 MG IV SCH (21:00)
[2016-06-26] MEDS: FAMOTIDINE 20mg in NS 50ml IV SCH (21:59)
[2016-06-26] MEDS ORDERED: FUROSEMIDE 20 MG/2 ML INJECTION IV ONE (23:15)
--- NOTE | 2016-06-26 23:15 | NUR ---
LOW OUTPUT CONTINUES AND CALLED TO DR GOLDSTEIN. LASIX 20MG IV GIVEN WITH RESULTS.
[2016-06-27] VITALS (34 sets, daily range): BP systolic 130–182; BP diastolic 60–82; PULSE 59–81; RESP 10–29; TEMP 97.3–98.4; O2SAT 87–98
[2016-06-27] MEDS: MORPHINE SULFATE 10 MG SYRINGE IV PRN ×5 (05:45→20:00)
--- NOTE | 2016-06-27 05:45 | NUR ---
PAIN/NAUSEA MS 5MG IV GIVEN FOR INCISIONAL PAIN AND ALSO RIGHT CHEST PAIN THAT SHE HAS BEEN HAVING AT HOME FOR THE LAST 2-3 WEEKS. ZOFRAN 4MG IV FOR NAUSEA.
[2016-06-27] MEDS: ONDANSETRON 4mg/2ml INJECTION IV PRN (06:01)
[2016-06-27] MEDS: NORMAL SALINE 1,000 ML IV SCH (09:29)
[2016-06-27] MEDS: FAMOTIDINE 20mg in NS 50ml IV SCH ×2 (09:29→21:08)
[2016-06-27] MEDS: ENOXAPARIN 40 MG/0.4 ML INJECTION SQ SCH (09:30)
--- NOTE | 2016-06-27 10:56 | NUR ---
PATI KRUEGER VISITED PT. CM EXPLAINED ROLE AND PROVIDED CONTACT INFORMATION. PT PLANS TO RETURN HOME POST STAY AT [facility] [place]. PT STATES THAT DAUGHTER ASSISTS WITH NEEDS. CM DISCUSSED POSSIBILITY OF HOME HEALTH. PT HAS DENIES AT THIS POINT BUT WILL DISCUSS WITH DAUGHTER. PT IS AWARE TO CONTACT CM IF NEEDS ARISE.
[2016-06-27] MEDS: LORAZEPAM 0.5 MG TABLET PO PRN (11:27)
[2016-06-27] MEDS: ACETAMINOPHEN 500 MG TABLET PO PRN (11:28)
[2016-06-27] MEDS ORDERED: FUROSEMIDE 20 MG/2 ML INJECTION IV ONE (11:30)
[2016-06-27 12:26] LABS: ANION GAP 10 MEQ/L (5-15); BUN/CREATININE RATIO 15 RATIO (6-26); CALCIUM 7.8 MG/DL (8.4-10.2); CHLORIDE 112 MEQ/L (98-107); CO2 - CARBON DIOXIDE 25 MEQ/L (22-30); CREATININE 1.1 MG/DL (0.7-1.2); GLOMERULAR FILTRATION RATE 47; GLUCOSE 120 MG/DL (65-110); POTASSIUM 3.7 MEQ/L (3.6-5); SODIUM 147 MEQ/L (134-144)
[2016-06-27] MEDS: D5-1/2 NS KCL 20 MEQ 1,000 ML IV SCH (14:00)
--- NOTE | 2016-06-27 14:11 | PNF ---
DATE 06/27/2016 POSTOP DAY #1 The patient is in the intensive care unit. She has been up in a chair a couple of times. She is using incentive spirometry. The patient has had low urine output since the operation. She received two fluid challenges of normal saline yesterday evening. She received Lasix 20 mg intravenously at 2300 hours yesterday and did have some diuresis after that. Urine output was low again this morning. The patient was given some additional intravenous Lasix this morning. INTAKE AND OUTPUT Urine output has been low since the operation yesterday as described above. PHYSICAL EXAMINATION Vital signs: Pulse is 67. Respiratory rate is 17. Blood pressure is 167/74. Oxygen saturation is 98% on oxygen at 2 liters per minute by nasal cannula. ABDOMEN: The abdominal incision looks good. NEUROLOGIC: The patient is alert and oriented this morning. LABORATORY DATA Serum potassium was 3.3 at admission yesterday. The serum potassium is 3.7 this morning. Serum creatinine is 1.1. Serum sodium is 147. Serum chloride is 112. IMPRESSION 1. Doing well following laparotomy with open right hemicolectomy and excision of some peritoneal implants on 06/26/2016. 2. Mild hypokalemia at time of admission to the hospital which is now resolved. PATIENT EDUCATION I did talk with the patient today about findings at the time of the operation yesterday. PLAN 1. Continue to closely monitor the urine output and give additional intravenous Lasix as needed. 2. Keep patient in the intensive care unit for right now. 3. Continue incentive spirometry. 4. Continue Lovenox and sequential compression devices for deep venous thrombosis prophylaxis. 5. Continue intravenous Pepcid for GI prophylaxis. 6. Change intravenous fluids from normal saline to D5 half-normal saline with 20 mEq of potassium per liter. MTDD
--- NOTE | 2016-06-27 14:23 | NUR ---
Status Pt up to chair this morning post bath. Pt was able to assist with most of bath. C/o that MS makes her too loopy and her stomach hurt. Discussed alternative methods to MS for pain. Pt sat in chair for 1 hour. Performs IS frequently. Pt back into bed after 1 hour in chair. Around 1130 pt began requesting home Ativan. Order received and carried out. Also tried PRN Tylenol for pain per pt's request. Pt did not feel as good of results from Tylenol. Pt slept from [id number] until pt's daughter woke her up. Pt then ambulated into hallway touching the nurses station. PRN MS was given prior to walk as charted. Pt has been on and off O2- but does require it when sleeping. Pt is currently sitting in chair with legs elevated visiting with daughter. Will continue to monitor.
--- NOTE | 2016-06-27 16:53 | OPNOTEF ---
DATE OF OPERATION 06/26/2016 PREOPERATIVE DIAGNOSES 1. 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 2. 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 POSTOPERATIVE DIAGNOSES 1. 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 2. 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 OPERATION 1. Cystoscopy and insertion of right ureteral catheter by Dr. Amaya. 2. Laparotomy with open right hemicolectomy and excision of some peritoneal tumor implants. SURGEONS 1. Dr. Jimenes 2. Dr. Amaya. PROCESSING LEAD Dr. Doe ANESTHESIA General. ASA Class 3 FINDINGS This patient did have a large bulky mass at the cecum. This mass appeared to be extending through the wall of the cecum into the parietal peritoneum at the right lateral gutter at the lateral abdominal wall. Greater omentum was adherent to the cecum. There appeared to be metastatic tumor implants within the greater omentum adjacent to the cecum. The patient had a small nodule at the falciform ligament which looked like a tumor implant. The patient had a small nodule at the peritoneum at the right lateral gutter at the superior end of the right lateral gutter overlying Gerota's fascia which looked like a tumor implant. The patient did have extensive peritoneal implants at the pelvis. There were quite a few tumor implants in the pelvic cul-de-sac at the pouch of Esequiel. The distal sigmoid colon was covered with multiple tumor implants. These looked like drop metastases down into the pelvis. No masses were able to be palpated or visualized at the liver. There were no obvious hepatic metastases present. The gallbladder and appendix were absent as a result of previous operative removal. The patient had an old right subcostal abdominal incision scar from the previous cholecystectomy and appendectomy operation. The uterus, ovaries and fallopian tubes were also absent as a result of a previous total abdominal hysterectomy and bilateral salpingo-oophorectomy operation. The patient was known from the preoperative colonoscopy procedure to have a polyp which remained in the hepatic flexure of the colon and this polyp was able to be visualized when the colon was opened at the time of operation today. The patient was also noted at the time of operation today to have some intraabdominal adhesions. There were some adhesions of greater omentum to the anterior abdominal wall. There were also adhesions of greater omentum to the margin of the liver. DESCRIPTION OF OPERATION The patient was placed in supine position on the operating table. General anesthesia was satisfactorily induced. The patient was then placed in lithotomy position on the operating table. The patient was prepped and draped for cystoscopy with placement of a right ureteral catheter by Dr. Amaya. Dr. Amaya did perform cystoscopy with placement of a right ureteral catheter. Dr. Amaya will dictate the portion of the operation which he performed. The drapes were then removed. The patient was then changed from lithotomy position back to supine position. The abdomen was then prepped and draped in routine sterile fashion. A midline vertically oriented abdominal incision was made and extended through the abdominal wall. The peritoneal cavity was entered. Adhesions binding greater omentum to the anterior abdominal wall were divided. Some adhesions of greater omentum to the liver were divided. The peritoneal tumor implant at the falciform ligament was identified. This was excised at this time and submitted as a specimen for study by the pathologist. The tumor implant at the superior end of the right lateral gutter overlying Gerota' s fascia was identified. This peritoneal implant was excised at this time with Metzenbaum scissors and submitted as a specimen for study by the pathologist. The Rian wound protector was placed at the incision at this time. The Codman retractor was assembled at this time and used to provide exposure. The abdomen was explored further with findings as described above. One of the peritoneal implants at the parietal peritoneum at the pelvis was excised and submitted as a specimen for study by the pathologist. The peritoneum along the right lateral gutter was incised. Some of the peritoneum at the right lateral gutter adjacent to the cecum was all excised en bloc along with the cecum. A dissection plane was established that would allow the peritoneum to be excised along with the cecum. Some peritoneal tumor implants at the inferior end of the right lateral gutter just superior to the cecum were also removed en bloc along with the cecum as this parent parietal peritoneum was divided. The ascending colon was mobilized medially. The greater omentum was then from the right half of the transverse colon. The hepatic flexure of the colon was mobilized. The duodenum was carefully identified and preserved from injury at this time. The ascending colon was mobilized further medially. The patient did have the right ureteral catheter in place and the position of the right ureter was referred to repeatedly throughout this time to avoid any injury to the right ureter. The ileocolic blood vessels were isolated near the base of the ileocolic blood vessels. The ileocolic blood vessels were skeletonized. The ileocolic blood vessels were doubly clamped with right angle clamps. The ileocolic blood vessels were divided between clamps. The ileocolic blood vessels were ligated with 0-Vicryl ligatures. A proximal resection margin was selected at the terminal ileum. The terminal ileum was divided at the proximal resection margin with the [employer] brand TLC 75 linear cutter stapler. The mesentery was divided beneath the segment of terminal ileum to be resected. This was done by doubly clamping the mesentery with right angle clamps, dividing the mesentery between clamps and ligating the pedicles of mesentery with 0-Vicryl ligatures. A distal resection margin was also then selected at the transverse colon. This distal resection margin was located just to the right side of the middle colic blood vessels. Middle colic blood vessels were identified at this time. The mesentery of the transverse colon was transilluminated. A distal resection margin was selected to allow good blood supply up to the end of the mid transverse colon which would be used for the anastomosis. The middle colic artery and vein were preserved to provide a good blood supply to the end of the remaining mid transverse colon which would be used for the anastomosis. The transverse colon was divided at the distal resection margin with the [employer] brand TLC 75 linear cutter stapler. This did allow good blood supply in the remaining mesentery leading up to the remaining transverse colon. Mesentery was then divided beneath the proximal transverse colon. This mesentery was doubly clamped with right angle clamps, divided between clamps and ligated with 0-Vicryl ligatures. The remaining mesentery beneath the ascending colon was divided by doubly clamping mesentery between right angle clamps, dividing the mesentery between the clamps and ligating the mesentery with 0-Vicryl ligatures. The portion of greater omentum which was attached to the cecum and contained some omental implants was resected en bloc along with the cecum. This portion of the greater omentum was divided from the remainder of the greater omentum by doubly clamping greater omentum with right angle clamps, dividing greater omentum between the clamps and ligating pedicles of greater omentum with 0-Vicryl ligatures. This did allow a portion of the greater omentum to remain attached to the cecum and resected along with the cecum. The rest of the greater omentum which was grossly free of tumor implants was left in place within the patient. The specimen of terminal ileum, cecum, ascending colon and proximal transverse colon along with some underlying mesentery was handed off as a specimen for study by the pathologist. Irrigation was then performed extensively throughout the peritoneal cavity. Four liters of irrigation was used. Hemostasis was completed throughout the right side of the abdomen. The stapled closed end of ileum was then brought up into a position adjacent to the stapled closed end of transverse colon. A functional end-to-end anastomosis was then created between the stapled closed end of the ileum and stapled closed end of the transverse colon using an [employer] [place] TLC 75 linear cutter stapler and the [employer] [place] 60 B stapler. The internal staple lines were inspected as this was done and they looked good. The external staple lines were also inspected and they looked good. There did appear to be a good blood supply to the anastomosis. There was no tension on the anastomosis. The anastomosis appeared to have a satisfactory size. Two stitches of 3-0 Vicryl suture were placed at the crotch of the anastomosis. These were 3-0 Vicryl simple interrupted seromuscular stitches. The opening in the mesentery beneath the anastomosis was then closed with a continuous simple [id number] stitch using 3-0 Vicryl suture. The specimen of colon which had been resected was opened at the hepatic flexure end of this specimen and examined with results as described above. Following completion of the anastomosis, the anastomosis was examined with fluorescence with indocyanine green. The patient was given 2 mL (5 mg) of indocyanine green intravenously. The room lights were turned down in the operating room. A Bramasol laparoscopy scope with indocyanine green immunofluorescence capability was then used to visualize the anastomosis. Immunofluorescence was demonstrated at the anastomosis at this time with indocyanine green indicating that there was a good blood supply to the anastomosis. The room lights were then turned back on. Greater omentum was brought down over the anastomosis and brought down beneath the abdominal incision. The remaining greater omentum was brought down over the anastomosis and over loops of intestine beneath the incision. The Codman retractor was removed. The Rian wound protector was removed. The surgeon, certified surgical tech/first assistant and scrub nurse all changed gowns and gloves at this time. New sterile drapes were placed at the incision. A reserved clean instrument tray was used for closing the wound. New light handles were used. New suction and cautery were used. The abdominal incision was closed. The fascial layer of the incision was closed and the linea alba was reapproximated with a continuous simple irqy-ung-xuli stitch using #1 PDS suture. The skin margins at the incision were reapproximated with skin clair. Sterile dressings were applied. Sponge, needle and instrument counts were all correct. The patient did tolerate the operation well. The right ureteral catheter was removed from the patient before the patient left the operating room. The patient was transferred from the operating room to the intensive care unit in satisfactory condition. BEATRIZ
--- NOTE | 2016-06-27 17:50 | NUR ---
Confusion Pt called RN into room. Pt verbalized "whats going on here". RN asked pt to further explain. Pt "you know, the power has been coming on and off and only sometimes the clock work. I heard the announcement to turn off any lights and TV". RN explained to pt power has not gone off and no announcements have been made overhead. RN checked to make sure clock was in working order-which it was. Pt "no use arguing with you". RN assisted pt to get comfortable in chair. Will continue to monitor.
--- NOTE | 2016-06-27 21:31 | NUR ---
Status Pt up in recliner at start of shift. Ambulated to nurses desk and back to bed this evening with RN assistx1, gait belt. Pt hesitant to walk due to fatigue, however after RN educated her on the importance, pt agreed. Pt requested 4mg Morphine prior to bed. Urine output marginal via colon, pink/baires colored. Pt has been resting since following ambulation and med administration. VSS.
[2016-06-28] VITALS (23 sets, daily range): BP systolic 90–159; BP diastolic 50–85; PULSE 52–82; RESP 10–29; TEMP 97.9–99.1; O2SAT 89–96
[2016-06-28] MEDS: D5-1/2 NS KCL 20 MEQ 1,000 ML IV SCH ×3 (01:58→19:18)
--- NOTE | 2016-06-28 02:30 | NUR ---
STATUS IV SITE LEAKING. DC'D. RESTARTED IN RIGHT HAND. OCC FORGETFUL ABOUT WHERE SHE IS BUT CAN BE REORIENTED TO PLACE. COOPERATIVE. DENIES NEED FOR PAIN MED AT PRESENT.
[2016-06-28 04:18] LABS: BASOPHILS % (AUTO) 0.1 % (0-2); EOSINOPHILS # (AUTO) 0.2 T/MM3 (0-0.5); EOSINOPHILS % (AUTO) 1.2 % (0-4); HCT - HEMATOCRIT 29.5 % (36-46); HGB - HEMOGLOBIN 8.9 GM/DL (12-16); IMMATURE GRANULOCYTE # (AUTO) 0.02 T/MM3 (0.00-0.03); IMMATURE GRANULOCYTE % (AUTO) 0.2 % (0.0-0.5); LYMPHOCYTES % (AUTO) 7.5 % (23-45); MEAN CORPUSCULAR HGB 23.9 UUG (26-34); MEAN CORPUSCULAR HGB CONC(MCHC 30.2 GM/DL (31-37); MEAN CORPUSCULAR VOLUME 79.3 UM3 (80-100); MEAN PLATELET VOLUME 10.4 UM3 (9.4-12.4); MONOCYTES # (AUTO) 0.7 T/MM3 (0-0.8); MONOCYTES % (AUTO) 5.3 % (0-9.0); NEUTROPHILS #(AUTO)-ABSOLUTE 10.9 T/MM3 (1.8-7.7); NEUTROPHILS % (AUTO) 85.7 % (33-66); RED BLOOD COUNT 3.72 M/MM3 (4.00-5.20); WBC - WHITE BLOOD COUNT 12.7 T/MM3 (4.5-11.0)
[2016-06-28 04:32] LABS: ANION GAP 3 MEQ/L (5-15); BUN/CREATININE RATIO 14 RATIO (6-26); CALCIUM 7.9 MG/DL (8.4-10.2); CHLORIDE 113 MEQ/L (98-107); CO2 - CARBON DIOXIDE 27 MEQ/L (22-30); CREATININE 0.9 MG/DL (0.7-1.2); GLOMERULAR FILTRATION RATE 59; GLUCOSE 133 MG/DL (65-110); POTASSIUM 3.5 MEQ/L (3.6-5); SODIUM 143 MEQ/L (134-144)
--- NOTE | 2016-06-28 06:00 | NUR ---
STATUS SLEPT MUCH OF NIGHT. OFFERED PAIN MEDS BUT PT DECLINES AT PRESENT. INCISION OPEN TO AIR. USES IS.
[2016-06-28] MEDS: MORPHINE SULFATE 10 MG SYRINGE IV PRN ×4 (07:23→20:22)
[2016-06-28] MEDS: FAMOTIDINE 20mg in NS 50ml IV SCH ×2 (09:52→20:23)
[2016-06-28] MEDS: ENOXAPARIN 40 MG/0.4 ML INJECTION SQ SCH (09:52)
--- NOTE | 2016-06-28 10:06 | NUR ---
Morning Cares Morning cares provided to pt. Pt was able to do most of bath stating "this feels wonderful". Up to chair with minimal assistance. Pt sat in chair for approx 30 min before requesting a walk. Pt was able to take a full lap in CCU hallway. Pt appears much more uncomfortable today requiring more medication to keep her comfortable. Pt thinks it may be related to gas pains. No flatus, but frequent belching. Pt is back in bed resting. Remains on 2L per NC. Will continue to monitor.
--- NOTE | 2016-06-28 14:20 | NUR ---
ARRIVAL/TRANSFER AMBULATORY TO ROOM 132 WITH CCU STAFF. O2 2L PER NC. IVF INFUSING. ALERT AND ORIENTED X3. BED IN LOWEST POSITION, CALL LIGHT WITHIN REACH, SIDE RAILS X2, AND BED ALARM ACTIVATED.
[2016-06-28] MEDS: LORAZEPAM 0.5 MG TABLET PO PRN (14:30)
--- NOTE | 2016-06-28 14:33 | NUR ---
Transfer Pt transferred from CCU bed 2 to surgical room 132. Report called prior to Barrera GALLO. Pt was able to ambulate form CCU to surgical pushing a WC. All personal belonging sent with pt, including home medications. WIll continue to monitor.
--- NOTE | 2016-06-28 18:34 | PNF ---
DATE 06/28/16 POSTOP DAY #2 HISTORY The patient is in the intensive care unit. She did ambulate in the intensive care unit yesterday. She ambulated in the intensive care unit again today. INTAKE AND OUTPUT Urine output is improved. PHYSICAL EXAMINATION VITAL SIGNS: Pulse is 66. Respiratory rate is 14. Blood pressure is 132/66. Oxygen saturation is 93% on oxygen at 2 liters per minute by nasal cannula. ABDOMEN: The abdominal incision looks good. The abdomen is soft and nondistended. NEUROLOGIC: The patient is alert and oriented. LABORATORY DATA White blood cell count is 12,700. Hemoglobin is 8.9. Hematocrit is 29.5. Serum sodium is 143. Serum potassium is 3.5. Serum creatinine is 0.9. IMPRESSION Doing well following laparotomy with open right hemicolectomy and excision of some peritoneal implants on 06/26/2016. PLAN 1. Discontinue Rain catheter. 2. Transfer patient out of Intensive Care Unit to a room on the surgical unit. 3. Continue incentive spirometry. 4. Continue Lovenox and sequential compression devices for deep venous thrombosis prophylaxis. 5. Continue intravenous Pepcid for GI prophylaxis. 6. Continue ambulation of the patient. MTDD
--- NOTE | 2016-06-28 18:50 | NUR ---
SHIFT SUMMARY ALERT AND ORIENTED X3. O2 2L PER NC. VITAL SIGNS STABLE. UP WITH ASSIST X1 AND GAIT BELT. AMBULATES IN HALLWAY THIS SHIFT, TOLERATED AMBULATION WELL. RECEIVED PRN MORPHINE FOR PAIN. ENCOURAGED USE OF INCENTIVE SPIROMETER. CURRENTLY RESTING BED WITH RESPIRATIONS EVEN AND UNLABORED. BED IN LOWEST POSITION, CALL LIGHT WITHIN REACH, AND BED ALARM ACTIVATED. PATIENT DENIES OTHER NEEDS AT THIS TIME.
[2016-06-29] MEDS: D5-1/2 NS KCL 20 MEQ 1,000 ML IV SCH ×2 (01:32→13:24)
[2016-06-29] MEDS: MORPHINE SULFATE 10 MG SYRINGE IV PRN ×4 (03:51→18:50)
[2016-06-29 04:07] VITALS: BP 129/68; PULSE 73; RESP 16; TEMP 97; O2SAT 94
[2016-06-29 05:27] LABS: BASOPHILS % (AUTO) 0.1 % (0-2); EOSINOPHILS # (AUTO) 0.3 T/MM3 (0-0.5); HCT - HEMATOCRIT 28.4 % (36-46); HGB - HEMOGLOBIN 8.4 GM/DL (12-16); IMMATURE GRANULOCYTE # (AUTO) 0.02 T/MM3 (0.00-0.03); IMMATURE GRANULOCYTE % (AUTO) 0.2 % (0.0-0.5); LYMPHOCYTES # (AUTO) 0.7 T/MM3 (1-4.8); LYMPHOCYTES % (AUTO) 8.4 % (23-45); MEAN CORPUSCULAR HGB 23.5 UUG (26-34); MEAN CORPUSCULAR HGB CONC(MCHC 29.6 GM/DL (31-37); MEAN CORPUSCULAR VOLUME 79.6 UM3 (80-100); MEAN PLATELET VOLUME 10.4 UM3 (9.4-12.4); MONOCYTES # (AUTO) 0.6 T/MM3 (0-0.8); MONOCYTES % (AUTO) 6.8 % (0-9.0); NEUTROPHILS % (AUTO) 81.5 % (33-66); RED BLOOD COUNT 3.57 M/MM3 (4.00-5.20); WBC - WHITE BLOOD COUNT 8.6 T/MM3 (4.5-11.0)
[2016-06-29 05:32] LABS: ANION GAP 5 MEQ/L (5-15); BUN/CREATININE RATIO 10 RATIO (6-26); CALCIUM 7.8 MG/DL (8.4-10.2); CHLORIDE 111 MEQ/L (98-107); CO2 - CARBON DIOXIDE 28 MEQ/L (22-30); CREATININE 0.6 MG/DL (0.7-1.2); GLOMERULAR FILTRATION RATE 95; GLUCOSE 121 MG/DL (65-110); POTASSIUM 3.5 MEQ/L (3.6-5); SODIUM 144 MEQ/L (134-144)
--- NOTE | 2016-06-29 05:48 | NUR ---
SHIFT SUMMARY PT ALERT AND ORIENTED X3, WITH PERIODS OF FUZZINESS. VITAL SIGNS STABLE ON 2L 02 VIA NC. PT REFUSED TO AMBULATE ON THIS SHIFT STATING SHE WAS TOO TIRED AND WANTED TO SLEEP. DENIES C/P,N/V AND SOA. PRN PAIN MEDICATIONS GIVEN THROUGHOUT THE NIGHT. PT HAS HAD URINARY FREQUENCY, AMBULATING TO THE BATHROOM FREQUENTLY. WILL CONTINUE TO MONITOR.
[2016-06-29 07:20] VITALS: BP 172/72; PULSE 61; RESP 18; TEMP 97.3; O2SAT 94
--- NOTE | 2016-06-29 08:41 | NUR ---
PATIENT MED REQUEST PT STATES SHE TAKES LORAZEPAM PRN TID AT HOME, ORDERED BY HER PCP. WOULD LIKE TO HAVE THIS AVAILABLE SHE TAKES IT AT HOME, NOT JUST ONCE A DAY PRN ORDERED FOR THIS STAY.
[2016-06-29] MEDS: ENOXAPARIN 40 MG/0.4 ML INJECTION SQ SCH (09:18)
[2016-06-29] MEDS: FAMOTIDINE 20mg in NS 50ml IV SCH ×2 (09:18→21:51)
--- NOTE | 2016-06-29 10:22 | NUR ---
CM IN TO VISIT WITH PATIENT SHE IS ALERT AND ORIENTED. CM DISCUSSED HOME HEALTH AND ADVANCED DIRECTIVES, ADVANCED DIRECTIVES ARE DONE AND SHE IS NOT SURE SHE WILL NEED HOME HEALTH AT THIS TIME. CM CONTACT INFORMATION GIVEN. Addendum: 06/29/16 at 1025 by CHAGO TORRES RN Amended: Links added.
[2016-06-29 12:37] VITALS: BP 130/91; PULSE 67; RESP 16; O2SAT 95
[2016-06-29 14:48] VITALS: BP 122/66; PULSE 66; RESP 16; TEMP 98.1; O2SAT 94
[2016-06-29 19:43] VITALS: BP 118/69; PULSE 66; RESP 16; TEMP 98; O2SAT 94
--- NOTE | 2016-06-29 19:43 | NUR ---
SUMMARY PT STATES SHE MAY HAVE PASSED SOME GAS "BUT IT WASN'T MUCH IF I DID". HAS REQUESTED PAIN MED AT TIMES DOCUMENTED THROUGHOUT SHIFT. STATES MS TAKES CARE OF PAIN QUICKLY. INCISION REMAINS D&I WITH MEGA IN PLACE. NO S/SX OF INFECTION. PT UP WITH ASSIST OF 1.
--- NOTE | 2016-06-29 19:50 | NUR ---
ativan this rn paged dr. veras per pt request. pt states she takes her ativan 0.5mg--2 tabs at night and 1 tab during the day[address] dr. vears ordered that it was fine to change the order to what pt does at home. will continue to monitor.
--- NOTE | 2016-06-29 19:54 | PNF ---
DATE 06/29/2016 POSTOPERATIVE DAY #3 HISTORY The patient states that she has ambulated in the champion three times today. She is using her incentive spirometry. The nurses have noticed that the urine of the patient looks a little bit bloody. We will consult Dr. Amaya regarding this. PHYSICAL EXAM VITAL SIGNS: Temperature is 98.1 degrees oral. Pulse is 66. Respiratory rate is 16. Blood pressure is 122/66. Oxygen saturation is 94% on oxygen at 1 liter per minute by nasal cannula. ABDOMEN: The abdominal incision looks good. No sign of any wound-healing problems. The abdomen is nondistended. LABORATORY White blood cell count is 8600. Hemoglobin is 8.4. Hematocrit is 28.4. Serum sodium is 144. Serum potassium is 3.5. Serum creatinine is 0.6. IMPRESSION Doing well following laparotomy with open right hemicolectomy and excision of some peritoneal implants on 06/26/2016. PLAN 1. Continue incentive spirometry. 2. Continue ambulation of the patient. 3. Continue Lovenox and sequential compression devices for deep venous thrombosis prophylaxis. 4. Continue intravenous Pepcid for GI prophylaxis. 5. Consult Dr. Amaya regarding urine which looks bloody, according to the nurses. [facility]
[2016-06-29] MEDS: LORAZEPAM 0.5 MG TABLET PO PRN ×2 (19:57→19:58)
[2016-06-29 23:06] VITALS: BP 125/65; PULSE 64; RESP 24; TEMP 97.3; O2SAT 94
[2016-06-30] VITALS (7 sets, daily range): BP systolic 113–139; BP diastolic 60–76; PULSE 60–67; RESP 16–22; TEMP 96.5–97.8; O2SAT 91–95
--- NOTE | 2016-06-30 00:43 | NUR ---
Chart Check 24 hour chart check completed
[2016-06-30] MEDS: D5-1/2 NS KCL 20 MEQ 1,000 ML IV SCH ×3 (01:02→22:49)
[2016-06-30] MEDS: ONDANSETRON 4mg/2ml INJECTION IV PRN (04:05)
--- NOTE | 2016-06-30 04:09 | NUR ---
PRN PT "DIDN'T FEEL RIGHT" AFTER UP TO THE BATHROOM. OFFERED AND GAVE ZOFRAN FOR NAUSEA. Lian. PT PASSED LARGE FLATUS IN BATHROOM JUST PRIOR TO HER REPORT.
--- NOTE | 2016-06-30 07:34 | NUR ---
SHIFT SUMMARY PT HAS SLEPT SOUNDLY THROUGHOUT THE NIGHT. NO PRNS GIVEN. DENIES PAIN/SOA. PT TRANSFERS WITH ASSIST X ONE AND GB TO BATHROOM, STEADY GAIT. FLUIDS ORDERED INFUSING IN RIGHT HAND. PT REPORTED PASSING GAS A FEW TIMES DURING THIS SHIFT! BED LOCKED AND LOW, BED ALARM ON. CALL LIGHT WITHIN REACH. WILL CONTINUE TO MONITOR.
[2016-06-30] MEDS: FAMOTIDINE 20mg in NS 50ml IV SCH ×2 (09:00→20:34)
[2016-06-30] MEDS: ENOXAPARIN 40 MG/0.4 ML INJECTION SQ SCH (09:00)
--- NOTE | 2016-06-30 09:48 | NUR ---
CM CM IN TO VISIT PATIENT, SHE IS UP IN CHAIR, A&O. PATIENT PLANS TO DISCHARGE HOME, SHE HAS 2 DAUGHTERS, ONE IS HER PRIMARY CARE PROVIDER BUT SHE WILL BE OOT FROM 07-02 THROUGH 07-05 BUT OTHER DAUGHTER WILL COME STAY WITH HER. PATIENT ALSO SAYS SHE HAS A NEIGHBOR AND FRIENDS ALL THAT HAVE OFFERED HELP. AT THIS TIME SHE DOES NOT FEEL SHE NEEDS HHS BUT WILL SEE HOSPITAL STAY PROGRESSES. SHE IS GETTING UP HERE WITH 1 ASSISTANCE AND SHE STATES SHE IS STILL WEAK BUT IS IMPROVING. WILL FOLLOW. THIS CM CONTACT INFORMATION PROVIDED.
[2016-06-30] MEDS: MORPHINE SULFATE 10 MG SYRINGE IV PRN ×3 (10:54→16:18)
--- NOTE | 2016-06-30 12:30 | NUR ---
STATUS PT HAS BEEN WILLING TO WALK TWICE THIS SHIFT, BEING THE ONE TO INITIATE AMBULATION FOR SECOND WALK. MS BEING USED TO MANAGE PAIN AT THIS TIME.
--- NOTE | 2016-06-30 13:37 | CONSF ---
DATE OF CONSULTATION 06/30/2016 REFERRING PHYSICIAN Rickey Jimenes MD REASON FOR CONSULTATION Gross hematuria. HISTORY OF PRESENT ILLNESS Mrs. 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 She underwent cystoscopy and right ureteral catheter insertion and right hemicolectomy with excision of tumors from the peritoneal implants. Pathology came back metastatic adenocarcinoma. The Rain catheter has been removed but she was found to have grossly bloody urine yesterday. It gets dark and bright red and also light red intermittently. She is currently on Lovenox since the surgery. She has never had gross hematuria before and was never told to have blood in the urine. She has a history of kidney stone once in the past. She does not get frequent urinary tract infections and has had bladder neck suspension in the distant past for stress incontinence. She denies dysuria. Even before the surgery, she had urinary frequency, voiding every 1-1/2 hours throughout the day but once at night. She wears a pad 24 hours a day but only uses one pad per 24 hours for urinary incontinence. It appeared to be mostly urgency incontinence with little or no stress component. level is mild. She has no trouble with urinary flow as it starts promptly and feels bladder empties out completely. She does get mild "bladder pain" and it is in the vaginal area with some burning sensation. There is no suprapubic discomfort. Denies any pain near the kidney area other than postoperative abdominal pain from the incision. She had been a smoker and quit smoking about 20 years ago. PAST SURGICAL HISTORY 1. Cataract surgery. 2. Esophagogastroduodenoscopy with esophageal dilation. 3. Tonsillectomy. 4. Triple artery coronary artery bypass graft and carotid artery surgery and had no stent. She uses oxygen at night. 5. Cholecystectomy. 6. Appendectomy. 7. Hysterectomy. 8. Open reduction internal fixation of the humerus. 9. Scoping of the right shoulder. 10. Back fusion. PAST MEDICAL HISTORY 1. Coronary artery disease but had negative heart catheterization in December 2015. 2. Hypertension, on medication. 3. Sleep apnea and uses oxygen at night. 4. Hernia. 5. Gastroesophageal reflux disease. 6. Generalized arthritis. 7. Depression with panic disorder. 8. History of bilateral breast cancer. CURRENT MEDICATIONS 1. Tylenol. 2. Lovenox. 3. Famotidine 20 mg a day. 4. Lorazepam. 5. Morphine sulfate. 6. Potassium supplement. 7. Phenergan. HOME MEDICATIONS 1. Amlodipine 5 mg daily. 2. Aspirin 81 mg daily. 3. Calcium carbonate with vitamin D. 4. Docusate daily p.r.n. 5. Hydralazine 50 mg b.i.d. 6. Lorazepam 0.5 mg p.r.n. 7. Niacin 100 mg daily p.r.n. 8. Simvastatin 20 mg q. h.s. 9. Triamterene/Hydrochlorothiazide daily. ALLERGIES Patient has adverse reaction to CODEINE. REVIEW OF SYSTEMS Denies fever, chills. No nausea or vomiting. She feels weak and tired from the surgery. No chest pain or irregular heart rhythm or palpitation. She is somewhat short of breath and uses oxygen now. No coughing is reported. She is passing gas and recovering from the abdominal surgery. PHYSICAL EXAMINATION GENERAL: Alert and oriented female in no acute distress. She is [id number]. HEENT: Grossly normal, with oxygen by nasal cannula in place. NECK: Supple with diminished carotid pulses bilaterally. There is no lymphadenopathy in the postauricular, subcervical or supraclavicular lymph node chains. LUNGS: Have diminished breath sounds with occasional rhonchi but no rales. HEART: Normal sinus rhythm without murmur or gallop. ABDOMEN: Has an incision in midline that is clean and dry without evidence of infection. Mild bilateral CVA tenderness, right side slightly more so than the left. Abdomen does have bowel sounds and is soft. EXTREMITIES: Without edema. NEUROLOGIC: Grossly intact. No gross sensory or motor deficits. PSYCHIATRIC: Alert and oriented and normal affect and no obvious sign of depression or anxiety. There is no recent urinalysis, including preoperatively but most recent creatinine yesterday was 0.6. Hemoglobin was 8.4, hematocrit 28.4 and platelet count of 224,000 and these were yesterday. She had a CT scan of the abdomen and pelvis in April of this year but this was done with contrast only without delayed films. It shows no obvious evidence of stones although small stones in the calyceal system may not be able to be seen with contrast. No renal mass but multiple cysts, largest one 5.8 cm. No hydronephrosis or ureteral abnormality including stone disease was found. Bladder appeared normal as well. Cystoscopy at the time of ureteral catheterization showed evidence of mild cystitis but no bladder tumor. IMPRESSION 1. Gross hematuria postop following cystoscopy and ureteral catheterization which has been removed. Gross hematuria is asymptomatic and she is on Lovenox. 2. She has metastatic adenocarcinoma from cecal primary. RECOMMENDATION We will ask for urine culture. If urine culture is negative, I would just observe. If we could get her off Lovenox, I would do so. When she is ready to get off Lovenox and able to get off, and patient continues to show intermittent gross hematuria, then would consider reevaluation at that point in time. For now, I will not, nor should she need any further evaluation. Thank you for the consultation. BEATRIZ
[2016-06-30 14:02] LABS: BLOOD, URINE 3+ (NEGATIVE); COLOR,URINE RED (YELLOW); LEUKOCYTE ESTERASE ,URINE TRACE (NEGATIVE); NITRITE,URINE NEGATIVE (NEGATIVE)
[2016-06-30 14:10] LABS: WBC,URINE NONE SEEN /HPF (0-5)
[2016-06-30 14:11] LABS: BACTERIA,URINE NONE SEEN (NEGATIVE); RBC,URINE TNTC /HPF (0-3); SQUAMOUS EPITHELIAL CELL,UR NONE SEEN
--- NOTE | 2016-06-30 16:28 | NUR ---
FOOD!!! PT VERY VEHEMENT IN ASKING FOR FOOD THIS AFTERNOON!!! HAS HAD FLATUS THROUGHOUT SHIFT "JUST LITTLE SPURTS" SHE CALLS IT. PT COMPLAINING HER STOMACH IS FEELING BAD "NOT PAIN, BUT LIKE IT NEEDS FOOD!". EXPLAINED THAT DR. GOLDSTEIN WILL DECIDE WHEN IT IS SAFE FOR PT TO BEGIN HAVING LIQUIDS/FOOD.
--- NOTE | 2016-06-30 18:00 | NUR ---
SHOULDER PAIN PT C/O RT SHOULDER PAIN. 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 PUT HEATED BLANKET ON HER SHOULDER AT THIS TIME.
--- NOTE | 2016-06-30 18:30 | NUR ---
SHOULDER F/U PT STATES HEATED BLANKET HELPED.
[2016-06-30] MEDS ORDERED: OXYCODONE I.R. 5 MG TABLET PO PRN (20:00)
--- NOTE | 2016-06-30 20:10 | PNF ---
DATE 06/30/2016 POSTOPERATIVE DAY #4 HISTORY The patient has been ambulating in the halls well. She is passing flatus. The patient was seen in consultation by Dr. Amaya today regarding postoperative gross hematuria. It is noted that the patient is on Lovenox. Dr. Amaya did order a urine culture. He thinks that if the urine culture is negative, we can just observe the patient. If the patient continues to have gross hematuria after the Lovenox has been stopped, he would consider reevaluation at that time. She otherwise needs no further evaluation at the present time. PHYSICAL EXAMINATION Vital signs: Temperature is 97.8 degrees oral. Pulse is 60. Respiratory rate is 16. Blood pressure is 113/60. Oxygen saturation is 95% on room air. ABDOMEN: The abdomen is soft and nondistended. The abdominal incision looks good. LABORATORY DATA The patient did have a urinalysis today. The urine color was red. There was 3 + blood. There were urine red blood cells too numerous to count. No bacteria were seen. Culture was not indicated. IMPRESSION 1. Doing well following laparotomy with open right hemicolectomy and excision of some peritoneal implants on 06/26/2016. 2. Postoperative gross hematuria. PLAN 1. Start full liquid diet with toast and crackers today. 2. The patient would like to have a heating pad for some right shoulder pain. 3. Continue incentive spirometry. 4. Continue ambulation of the patient. 5. Continue Lovenox and sequential compression devices for deep venous thrombosis prophylaxis. 6. Continue intravenous Pepcid for GI prophylaxis. 7. Transition patient from intravenous to oral medications. 8. Decrease rate of administration of intravenous fluid. MTDD
[2016-06-30] MEDS: LORAZEPAM 0.5 MG TABLET PO PRN (20:33)
[2016-07-01] VITALS (10 sets, daily range): BP systolic 116–139; BP diastolic 57–72; PULSE 54–61; RESP 16–20; TEMP 96.8–98.3; O2SAT 91–94
--- NOTE | 2016-07-01 06:13 | NUR ---
SHIFT SUMMARY PT ALERT AND ORIENTED TO PERSON AND PLACE, VITAL SIGNS STABLE ON 0.5 L 02 VIA NC, DENIES C/P,N/V AND SOA. PT HAS ONLY NEEDED 1 DOSE OF PRN PAIN MEDICATION. PT HAS RATED PAIN A 2-3/10 THROUGHOUT THE REMAINDER OF THE NIGHT, DENYING NEED FOR MEDICATION. PT HAS BEEN UP TO THE BATHROOM WITH A STANDBY ASSIST THROUGH THE NIGHT. A HEATING PAD WAS ORDERED TO HELP WITH RIGHT SHOULDER PAIN. FULL LIQUID DIET WAS ORDERED WELL, PT ATE A SMALL AMOUNT OF APPLESAUCE AND A FEW CRACKERS, TOLERATED THIS WELL BUT DIDN'T WANT TO EAT TOO MUCH TOO QUICKLY. WILL CONTINUE TO MONITOR.
[2016-07-01] MEDS: ENOXAPARIN 40 MG/0.4 ML INJECTION SQ SCH (08:38)
[2016-07-01] MEDS: FAMOTIDINE 20mg in NS 50ml IV SCH ×2 (08:39→21:29)
--- NOTE | 2016-07-01 10:51 | NUR ---
CM CM IN TO VISIT WITH PT. SHE IS ALERT AND ORIENTED. SHE DENIES DC NEEDS. SHE PLANS TO RETURN HOME. HER DAUGHTER IS COMING FROM [place] TO STAY WITH HER. SHE IS REMINDED THAT CM WILL CONTINUE TO VISIT AND ASSESS FOR DC NEEDS.
--- NOTE | 2016-07-01 15:30 | NUR ---
STATUS PT IS A&OX3. DENIES PAIN. 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 PT AMBULATED X2, TOLERATING WELL. PT DENIES N/V. PT PLEASANT AND COOPERATIVE WITH CARES. PT DAUGHTER AT BEDSIDE.
--- NOTE | 2016-07-01 15:54 | NUR ---
Shift Summary Pt alert and oriented, Catheter was removed and she was able to void,she does so some urgency when she goes. still waiting on BM, dressing is intact with clair and is dry. PT is a standby assist with gaitbelt, was able to walk twice in the champion during shift. SHE is a full liquid diet, Iv is in her right forearm and she is on D5 NS KCL.
[2016-07-01] MEDS: ACETAMINOPHEN 500 MG TABLET PO PRN ×2 (16:05→21:28)
[2016-07-01] MEDS: D5-1/2 NS KCL 20 MEQ 1,000 ML IV SCH ×2 (16:51→18:02)
[2016-07-01] MEDS: LORAZEPAM 0.5 MG TABLET PO PRN (21:27)
[2016-07-02 04:03] VITALS: BP 142/69; PULSE 64; RESP 14; TEMP 98.2; O2SAT 93
--- NOTE | 2016-07-02 06:02 | NUR ---
Chart Check 24 hour chart check completed
--- NOTE | 2016-07-02 06:03 | NUR ---
STATUS PATIENT A/OX3. PRN TYLENOL AND ATIVAN WAS GIVEN FOR GENERAL PAIN,RATED 4/10.PATIENT AMBULATED TO BATHROOM WITH ONE STANDBY ASSIST. PATIENT SLEPT WELL THROUGH NIGHT. BMX1. HEAT PAD USED AT RT SHOULDER. DENIES CHEST PAIN,SOA,OR N/V. PATIENT TOLERATED REGULAR DIET WELL ON BED ALARM.CALL LIGHT WITHIN REACH. CONTINUE TO MONITOR.
[2016-07-02 07:40] VITALS: BP 140/66; PULSE 53; RESP 14; TEMP 98.2; O2SAT 94
[2016-07-02 08:50] VITALS: PULSE 53; RESP 14
[2016-07-02] MEDS: FAMOTIDINE 20mg in NS 50ml IV SCH (09:00)
[2016-07-02] MEDS: ENOXAPARIN 40 MG/0.4 ML INJECTION SQ SCH (09:00)
--- NOTE | 2016-07-02 10:18 | NUR ---
CM CM TO SEE PATIENT TODAY. PATIENT PLANS TO DISCHARGE TO HOME WITH HER TWO DAUGHTERS AND DENIES NEEDS. Addendum: 07/02/16 at 1020 by CHAGO TORRES RN Amended: Links added.
--- NOTE | 2016-07-02 10:26 | NUR ---
DISCHARGE PATIENT IS ALERT AND ORIENTED X3. PATIENT VITALS ARE STABLE AND PATIENT IS ON ROOM AIR. PATIENT DENIES CP, NAUSEA, AND SOA. DISCHARGE INSTRUCTIONS INCLUDE: SIGNS AND SYMPTOMS OF INFECTION, REASONS TO CALL DOCTOR OR SEEK IMMEDIATE CARE, CONTINUED MEDICATIONS, INCISION CARE, WHEN TO MAKE FOLLOW UP APPOINTMENT, AND DI FOR LAPAROTOMY. PERSONAL BELONGINGS RETURNED AND ID BAND REMOVED. IV DISCONTINUED. PATIENT LEFT VIA WHEELCHAIR THROUGH FRONT ENTRANCE. PATIENT TRANSPORTED HOME FOR SELF CARE BY SON.
--- NOTE | 2016-07-02 11:07 | PNF ---
DATE: 07/01/16 POSTOP DAY #5 HISTORY The patient states that she continues to pass quite a bit of flatus. She has not had a bowel movement yet since the operation. She is tolerating the full liquid diet with toast and crackers well. She is ambulating. She has good pain control with oral analgesics. PHYSICAL EXAMINATION VITAL SIGNS: Temperature is 96.9 degrees oral. Pulse is 57. Respiratory rate is 18. Blood pressure is 139/67. Oxygen saturation is 91% on room air. ABDOMEN: The abdomen is soft. There is no abdominal distention. The abdominal incision looks good. IMPRESSION Doing well following laparotomy with open right hemicolectomy and excision of some peritoneal tumor implants on 06/26/16. PLAN 1. Decrease rate of infusion of intravenous fluids further today. 2. Advance diet to regular diet. 3. Continue ambulation. 4. Continue Lovenox and sequential compression devices for deep venous thrombosis prophylaxis. MTDD
--- NOTE | 2016-07-02 12:59 | PNF ---
DATE 07/02/2016 POSTOP DAY #6 HISTORY The patient is tolerating a regular diet. The patient is passing flatus. The patient had a bowel movement today. The patient feels like she is ready to be discharged from the hospital. PHYSICAL EXAMINATION VITAL SIGNS: Temperature is 98.2 degrees oral. Pulse is 53. Respiratory rate is 14. Blood pressure is 140/66. Oxygen saturation is 94% on room air. ABDOMEN: The abdomen is soft and nontender. The abdominal incision looks good. IMPRESSION Doing well following laparotomy with open right hemicolectomy and excision of some peritoneal tumor implants on 06/26/2016. PLAN 1. Dismiss patient from [facility] today. DISCHARGE MEDICATIONS 1. Resume medications that the patient was taking prior to admission to the hospital. 2. The patient believes that she can have good pain control at home with the use of Extra Strength Tylenol and Advil. GRETTAD
--- NOTE | 2016-07-05 18:23 | DSF ---
DISCHARGE DIAGNOSES 1. Invasive moderately to poorly differentiated adenocarcinoma at the cecum with extra colonic extension, peritoneal tumor implants, omental tumor implants and metastatic adenocarcinoma involving 13 out of 19 regional lymph nodes with numerous tumor deposits in the mesentery. 2. 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 3. Mild hypokalemia. 4. Postoperative gross hematuria number five colonic diverticulosis with extensive sigmoid colon diverticulosis. 6. 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 7. Occluded Port-A-Cath venous access port with inability to remove the Port-A-Cath venous access port on 07/27/05. 8. Coronary artery disease. 9. Fixed hiatal hernia demonstrated on 04/27/16 CT scan of the abdomen and pelvis. 10. Essential hypertension. 11. Hyperlipidemia. 12. Stage III chronic kidney disease. 13. Bilateral hearing loss. 14. Hypoxemia with nocturnal hypoxia found during December 2015 hospitalization at [facility] [place], [place]. OPERATION Cystoscopy and insertion of right ureteral catheter by Dr. Amaya and laparotomy with open right hemicolectomy and excision of some peritoneal tumor implants by Dr. Jimenes on 06/26/16. CONSULTANTS Francisco Javier Amaya M.D. HOSPITAL COURSE This patient was admitted to [facility] on 06/26/16. History and physical examination findings at time of admission to the hospital can be found in the dictated admission history and physical examination report in the chart. The patient was known at the time of admission to the hospital to have an invasive adenocarcinoma of the cecum with evidence of extra colonic extension of tumor and regional metastatic lymphadenopathy demonstrated on a 06/10/16 at a PET/CT scan. 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 The patient was known to have colonic diverticulosis with extensive sigmoid colon diverticulosis. The patient, the patient was known to have an invasive well-differentiated primary pulmonary adenocarcinoma at the left lower lung. The patient was known to have an occluded Port-A-Cath venous access port with inability to remove the Port-A-Cath venous access port on 07/27/05. The patient was known at the time of admission the hospital to have other chronic medical problems including coronary artery disease, fixed hiatal hernia, essential hypertension, hyperlipidemia, stage III chronic kidney disease, bilateral hearing loss and hypoxemia with nocturnal hypoxia. The patient was noted at the time of admission the hospital to have a serum potassium of 3.3. The patient had some mild preoperative hypokalemia. The patient did go to the operating room on 06/26/16. The patient did undergo cystoscopy with insertion of a right ureteral catheter by Dr. Amaya. The patient then underwent laparotomy with open right hemicolectomy and excision of some peritoneal tumor implants by Dr. Jimenes. Details of operative findings can be found in the dictated operative report found in the chart. There were no complications during the operation. The patient tolerated the operation well. The patient was transferred to the Intensive care unit after the operation. The patient did have some low urine output on the evening of the day of operation. She did receive two fluid challenges of normal saline during the evening. She then received Lasix 20 mg intravenously at 2300 hours on the evening of the day of operation. The patient did have some diuresis after this. On the first postoperative day, the patient was in the intensive care unit. She had been up in the chair a couple of times. She was using incentive spirometer. Urine output was still low. The patient was given some additional intravenous Lasix on the morning of the first postoperative day. The serum potassium was rechecked on the first postoperative day and was 3.7. The mild hypokalemia which had been present at time of admission the hospital now appear to be resolved. Serum creatinine was 1.1. The patient appeared to be doing well overall. Dr. Jimenes did inform the patient of findings at time of operation. The patient was kept in the intensive care unit at this time. Urine output was monitored closely. The patient was receiving Lovenox and sequential compression devices for deep venous thrombosis prophylaxis. This had been started preoperatively and was continued throughout the entire time the patient was in the hospital postoperatively. On the second postoperative day, the patient was ambulating in the intensive care unit. Urine output was improved. Serum potassium was 3.5. Serum creatinine was 0.9. Hemoglobin was 8.9. Hematocrit was 29.5. The patient was transferred out of the intensive care unit out to a room on the surgical unit on the second postoperative day. The Rain catheter was discontinued. Lovenox and sequential compression devices were continued for deep venous thrombosis prophylaxis. Incentive spirometry was continued. Ambulation was continued. On the third postoperative day, the patient had ambulated in the champion three times. She was using her incentive spirometry. The nurses noticed that the urine did appear to be grossly bloody. Dr. Amaya was consulted regarding this. The abdominal incision looked good. Hemoglobin was 8.4. Hematocrit was 28.4. Serum potassium is 3.5. Serum creatinine was 0.6. The patient appear to be doing well overall. On the fourth postoperative day, the patient continued to ambulate in the halls well. She was passing flatus. The patient was seen in consultation by Dr. Amaya at this time regarding the postoperative gross hematuria. It was noted that the patient was on Lovenox this time. Dr. Amaya did order a urine culture. He thought that if the urine culture was negative that the patient could just be observed. He thought that if the patient continued to have gross hematuria after the Lovenox was stopped that he would consider reevaluation at that time. He thought that she otherwise did not need any further evaluation at the present time. The patient did have a urinalysis performed on the fourth postoperative day. The urine color was red. There was 3+ plus blood. There were urine red blood cells too numerous to count. No bacteria were seen. Culture was not indicated. Full liquid diet with toast and crackers was started on the fourth postoperative day. Ambulation was continued. Incentive spirometry was continued. Lovenox and sequential compression devices were continued. A rate of administration of intravenous fluids was decreased. The patient was being transitioned from intravenous to oral medications at this time. On the fifth postoperative day, the patient continued to pass quite a bit of flatus. She had not yet had a bowel movement since the operation. She was tolerating the full liquid diet with toast and crackers well. She was ambulating well. She had good pain control with oral analgesics. Diet was advanced to a regular diet. Rate of administration of intravenous fluids was decreased further. Lovenox and sequential compression devices were continued for deep venous thrombosis prophylaxis. On the sixth postoperative day, the patient was tolerating a regular diet. She was passing flatus. The patient had a bowel movement on the sixth postoperative day. She felt like she was ready to be discharged from the hospital. The abdomen was soft and nontender. The abdominal incision looked good. The patient was dismissed from [facility] on the sixth postoperative day in stable condition. A pathology report was returned on the specimens submitted at the time of operation. The pathology report diagnosis on the segment of terminal ileum, ascending proximal transverse colon submitted at time of operation did show a diagnosis of invasive moderately to poorly differentiated colonic adenocarcinoma involving the cecum. The tumor did extend through the muscular wall the bowel and microscopically invaded through the visceral peritoneum. There was metastatic colon adenocarcinoma involving 13 out of 19 regional lymph nodes with numerous tumor deposits in the mesentery. DISCHARGE MEDICATIONS 1. Simvastatin 20 mg one tablet p.o. daily 2. Ipratropium bromide 0.06% solution with one spray in each nostril t.i.d. 3. Dulcolax 5 mg one tablet p.o. p.r.n. constipation. 4. Zofran 8 mg 1/2 tablet p.o. every 6 hours p.r.n. nausea. 5. Zantac 150 mg one p.o. at bedtime daily 6. Triamterene/hydrochlorothiazide 37.5/25 mg one tablet p.o. daily 7. Nitrostat 0.4 mg one sublingually p.r.n. chest pain. 8. Metoprolol tartrate 25 mg one tablet p.o. daily 9. Hydralazine 50 mg one tablet p.o. b.i.d. 10. Calcium 600 mg one tablet p.o. b.i.d. 11. Ativan 0.5 mg one tablet p.o. t.i.d. p.r.n. anxiety. 12. Aspirin 81 mg one tablet p.o. daily 13. Amlodipine besylate 5 mg one tablet p.o. daily 14. Tylenol 500 mg one p.o. every 6 hours p.r.n. pain. 15. MiraLAX p.r.n. constipation. DISCHARGE DISPOSITION Followup office visit with Dr. Jimenes at the office on the week following discharge from hospital. BEATRIZ
== END 2016-07-02 10:30 | disposition home or self-care (01) | DRG 330 ==
LOC: SRG 07:51 → CCU 14:40 → SRG 06-28 14:20
PROVIDERS: ADMIT Surgery; ATTEND Surgery
PROC: 0T768DZ Dilation of Right Ureter with Intraluminal Device, Via Natural or Artificial Opening Endoscopic (ICD-10-PCS; 2016-06-26)
PROC: 0DTF0ZZ Resection of Right Large Intestine, Open Approach (ICD-10-PCS; principal; 2016-06-26 10:00)
PROC: 0DBW0ZZ Excision of Peritoneum, Open Approach (ICD-10-PCS; 2016-06-26 10:00)
DX: C18.0 Malignant neoplasm of cecum (principal); C77.5 Secondary and unspecified malignant neoplasm of intrapelvic lymph nodes; C78.6 Secondary malignant neoplasm of retroperitoneum and peritoneum; C34.32 Malignant neoplasm of lower lobe, left bronchus or lung; E87.6 Hypokalemia; R31.0 Gross hematuria; I12.9 Hypertensive chronic kidney disease with stage 1 through stage 4 chronic kidney disease, or unspecified chronic kidney disease; N18.3 Chronic kidney disease, stage 3 (moderate); K57.30 Diverticulosis of large intestine without perforation or abscess without bleeding; I25.10 Atherosclerotic heart disease of native coronary artery without angina pectoris; G47.30 Sleep apnea, unspecified; K21.9 Gastro-esophageal reflux disease without esophagitis; M15.0 Primary generalized (osteo)arthritis; F32.9 Major depressive disorder, single episode, unspecified; Z79.82 Long term (current) use of aspirin; Z95.1 Presence of aortocoronary bypass graft; Z98.1 Arthrodesis status
CPT/HCPCS: 36415; 80048; 80053; 81001; 85025; 88305; 88309; 93005; 94664

== ENCOUNTER → 2016-07-07 | Outpatient (CLI) | payer MEDICARE ==
[~2016-07-07] MED LIST changes: -LIDOCAINE 1% (10mg/ml) 2ml SDV INJ ONE; -NORMAL SALINE 1,000 ML IV ONE; -NOZIN NASAL SWAB NS PRN
[2016-07-07 13:23] LABS: HCT - HEMATOCRIT 32.9 % (36-46); HGB - HEMOGLOBIN 9.9 GM/DL (12-16); MEAN CORPUSCULAR HGB 23.8 UUG (26-34); MEAN CORPUSCULAR HGB CONC(MCHC 30.1 GM/DL (31-37); MEAN CORPUSCULAR VOLUME 79.1 UM3 (80-100); MEAN PLATELET VOLUME 9.8 UM3 (9.4-12.4); RED BLOOD COUNT 4.16 M/MM3 (4.00-5.20); WBC - WHITE BLOOD COUNT 8.1 T/MM3 (4.5-11.0)
[2016-07-07 13:44] LABS: ALBUMIN 3.4 G/DL (3.5-5.0); ALBUMIN/GLOBULIN RATIO 1.2 RATIO (1.1-2.2); ALKALINE PHOSPHATASE 131 U/L (38-126); ALT (SGPT) 32 U/L (9-52); ANION GAP 12 MEQ/L (5-15); AST (SGOT) 23 U/L (14-36); BUN/CREATININE RATIO 14 RATIO (6-26); CALCIUM 8.6 MG/DL (8.4-10.2); CHLORIDE 112 MEQ/L (98-107); CO2 - CARBON DIOXIDE 24 MEQ/L (22-30); CREATININE 0.8 MG/DL (0.7-1.2); GLOMERULAR FILTRATION RATE 68; GLUCOSE 113 MG/DL (65-110); LDH 505 U/L (313-618); POTASSIUM 3.8 MEQ/L (3.6-5); SODIUM 148 MEQ/L (134-144); TOTAL PROTEIN 6.2 G/DL (6.3-8.2)
[2016-07-07 13:56] LABS: EOSINOPHILS # (MANUAL) 0.6 T/MM3 (0-0.5); LYMPHOCYTES # (MANUAL) 1.1 T/MM3 (1-4.8); MONOCYTES # (MANUAL) 0.3 T/MM3 (0-0.8); TOTAL CELLS COUNTED 100 %
[2016-07-07 13:57] LABS: BURR CELLS 1+; OVALOCYTES 1+; POIKILOCYTOSIS 1+
== END ==
LOC: LAB 12:56
PROVIDERS: ATTEND Internal Medicine Hematology & Oncology
DX: C18.0 Malignant neoplasm of cecum (principal); Z85.3 Personal history of malignant neoplasm of breast
CPT/HCPCS: 36415; 80053; 82378; 83615; 85007; 85027; 86300

== ENCOUNTER 2016-08-07 16:41 | Inpatient (IN) | payer MEDICARE ==
[~2016-08-07] VITALS: Ht 152.4 cm; Wt 68.3 kg
[~2016-08-07 16:41] MED LIST changes: +CEPH-583 PO
--- OUTSIDE RECORDS SUMMARY | 2016-08-07 16:46 | XMS REPORT | Continuity of Care Document ---
Author Author [facility] Organization [facility] Address Unknown Phone Unavailable Care Team Providers Care Senior Financial Analyst Name Role Phone TYE ROSARIO MD Primary Care Physician [phone] Insurance Providers Guarantor Alexi Barajas Address [address] [place] [address] Email [email or web address] [email or web address] Medicareadvantra o Policy Number [id number] Subscriber's Name Alexi Barajas Relationship 18 Self Group Number [id number] Chief Complaint and Reason for Visit Chief Complaint Upper Extremity Problem Reason for Visit Status post colectomy Colon cancer [id number] Problems Active Problems Medical Problem Onset Date Status Nausea & vomiting Unknown Acute Nausea & vomiting Unknown Acute Past Problems Medical Problem Onset Date Cellulitis of forearm, right Unknown Colon cancer Unknown Constipation by delayed colonic transit Unknown Unstable angina Unknown Medications Current Home Medications [...] 1 Tab Oral Twice A Day 06/15/16 Cephalexin (Keflex) 500 Mg Capsule 1 Cap Oral Three Times A Day 10 Days 30 Capsule 07/18/16 Diphenhydramine Hcl (Benadryl) 25 Mg Capsule 1-2 [...] 4 Hours as needed for Pain 06/15/16 Lorazepam 0.5 Mg Tablet 0.5 Mg Oral Daily as needed for Anxiety takes 2 tabs at bedtime and 1 tab during the day 06/15/16 Niacin 100 Mg Tablet 1 Tab Oral As Needed 06/15/16 Ondansetron (Ondansetron Odt) 8 Mg Tab.rapdis 0.5 Tab Oral Every 6 Hours as needed for Nausea 06/15/16 Simvastatin 20 Mg Tablet 20 Mg [...] Dulcolax , As Needed 11/02/09 Discontinued Fish Oil/Fe [employer]-3 Fatty Acids (Fe [employer] 3 Fish Oil 1,000 Mg Cap) 1 Cap Capsule, Bedtime 01/26/08 Discontinued Hydralazine Hcl 50 Mg Tablet, Three Times A Day 11/02/09 Discontinued Ipratropium 0.06% , As Needed 11/02/09 Discontinued Ipratropium Leonardo 0.2 Mg/Ml Solution, 0.2 Mg Inhalation Three [...] Problem Response Recorded Date/Time Onset Date Status Status post colectomy 07/18/2016 12:40pm Unknown Resolved Chewing Tobacco Status No 07/15/2013 9:22am Not Applicable Not Applicable Hx Substance Use No 06/26/2016 8:34am Not Applicable Not Applicable Hx Alcohol Use No 06/26/2016 8:34am Not Applicable Not Applicable Has the pt used tobacco in the last 12 months No 06/26/2016 8:34am Not Applicable Not Applicable Tobacco Usage none 07/15/2013 10:52am Not Applicable Not Applicable Hospital Discharge Instructions No hospital discharge instructions. Plan of Care Discharge Date 07/18/16 12:43pm Disposition 01 DISCHARGED HOME, SELF-CARE Condition at Discharge Stable Instructions/Education Provided Constipation (GEN) Prescriptions See Medication Section Referrals TYE ROSARIO MD Address: [address] [place] [address] [address] ROUSE Cristobal [place], [place] [id number] Additional Instructions/Education Cellulitis on the right forearm is likely from previous IV site and possibly infiltration. Start Keflex 500 mg 3 times a day for 10 days. Recommend aoid-cle-bgjnrsr moisturizing creams such as Aquaphor, Eucerin cream to help with the itching. May also use some bgxa-wqa-lwdwpxg hydrocortisone cream 3-4 times a day for itching. Recommend antihistamine such as Claritin, Sally or Zyrtec that may also help with the itching. For now would like to avoid oral steroids due to recent surgery. Recent colectomy with diagnoses colon cancer. Having some issues with constipation. Recommend that she take a dose of milk of magnesia today. I would recommend that she take stool softener docusate sodium 100 mg every day to prevent constipation. Increase fiber in the diet. Drink more fluids. Discussed her insomnia. I would avoid taking too many medications at bedtime. For now would take hydralazine plus lorazepam to help with sleep. Follow-up with PCP next week to discuss other options for insomnia. If constipation persists follow-up with the surgeon. Functional Status No functional status results. Allergies, Adverse Reactions, Alerts Allergen Type Severity Reaction Status Last Updated Codeine Adverse Reaction Unknown UPSET STOMACH Active 07/18/16 Immunizations Query Response on File Recorded Date/Time Hx Influenza Vaccination Y 201506/26/16 8:34am Hx Pneumococcal Vaccination Y 201306/26/16 8:34am Hx Tetanus, Diptheria, Pertussis Yes 07/15/13 9:22am Hx Influenza Vaccination Y 201506/26/16 8:34am Hx Tetanus, Diptheria, Pertussis Yes 07/15/13 9:22am Influenza Vaccine Hx 01/201607/18/16 12:09pm Vital Signs Acute Vital Signs Vital Response Date/Time Temperature (Fahrenheit) 97.5 deg F (96.8 - 99.1) 07/18/2016 12:12pm Temperature (Calculated Celsius) 36.18526 degrees C (36.0 - 37.3) 07/18/2016 12:12pm Temperature Source Temporal 06/26/2016 2:38pm Pulse Rate (adult) 93 bpm (60 - 100) 07/18/2016 12:12pm Respiratory Rate 14 breaths/min (10 - 20) 07/02/2016 8:50am O2 Sat by Pulse Oximetry 97 % (90 - 100) 07/18/2016 12:12pm Oxygen Delivery Method Room Air 07/01/2016 7:53pm Oxygen Delivery Method Room Air 07/02/2016 7:40am Oxygen Flow Rate 0.50 L/min 07/01/2016 4:44am Blood Pressure 95/66 mm Hg 07/18/2016 12:12pm Blood Pressure Source Automatic Cuff 07/02/2016 7:40am Height (Feet) 5 feet 06/26/2016 8:15am Height (Inches) 60.00 inches 07/18/2016 12:12pm Weight (Kilograms) 63.500 kg 07/18/2016 12:12pm Body Mass Index (BMI) 27.0 07/18/2016 12:12pm Results Laboratory Results Test Name Result Units Flags Reference Collection Date/Time Result Date/ Time Comments Prothromb Time International Ratio 1.06 H 0.76-1.04 06/15/2016 10:20am 06/15/2016 10:39am THERAPUTIC RANGE=2.00-3.00 FOR ANTI-THROMBOSIS THERAPUTIC RANGE=2.50-3.50 FOR IMPLANTED VALVE Neutrophils (%) (Auto) 81.5 % H 33-66 06/29/2016 4:48am 06/29/2016 5: 27am Lymphocytes (%) (Auto) 8.4 % L 23-45 06/29/2016 4:48am 06/29/2016 5: 27am Monocytes (%) (Auto) 6.8 % 0-9.0 06/29/2016 4:48am 06/29/2016 5:27am Eosinophils (%) (Auto) 3.0 % 0-4 06/29/2016 4:48am 06/29/2016 5:27am Basophils (%) (Auto) 0.1 % 0-2 06/29/2016 4:48am 06/29/2016 5:27am Immature Granulocyte % (Auto) 0.2 % 0.0-0.5 06/29/2016 4:48am 2016 5:27am Absolute Neutrophils (auto) 7.0 T/MM3 1.8-7.7 06/29/2016 4:48am 2016 5:27am Absolute Lymphocytes (auto) 0.7 T/MM3 L 1-4.8 06/29/2016 4:48am 2016 5:27am Absolute Monocytes (auto) 0.6 T/MM3 0-0.8 06/29/2016 4:48am 06/29/2016 5:27am Absolute Eosinophils (auto) 0.3 T/MM3 0-0.5 06/29/2016 4:48am 2016 5:27am Absolute Basophils (auto) 0.0 T/MM3 0-0.2 06/29/2016 4:48am 06/29/2016 5:27am Absolute Immature Granulocyte (auto 0.02 T/MM3 0.00-0.03 06/29/2016 4: 48am 06/29/2016 5:27am Urine Collection Type CLEANCATCH-MIDSTREAM 06/30/2016 1:57pm 2016 2:09pm Urine Color RED YELLOW 06/30/2016 1:57pm 06/30/2016 2:09pm Urine Turbidity CLOUDY CLEAR 06/30/2016 1:57pm 06/30/2016 2:09pm Urine Specific Glen <=1.005 L 1.015-1.025 06/30/2016 1:57pm 2016 2:09pm Urine pH 5.0 5.0-8.0 06/30/2016 1:57pm 06/30/2016 2:09pm Urine Leukocyte Esterase TRACE A NEGATIVE 06/30/2016 1:57pm 2016 2:09pm Urine Nitrite NEGATIVE NEGATIVE 06/30/2016 1:57pm 06/30/2016 2:09pm Urine Protein 1+ A NEGATIVE 06/30/2016 1:57pm 06/30/2016 2:09pm Urine Glucose (UA) NEGATIVE NEGATIVE 06/30/2016 1:57pm 06/30/2016 2: 09pm Urine Ketones NEGATIVE NEGATIVE 06/30/2016 1:57pm 06/30/2016 2:09pm Urine Urobilinogen 1.0 EU/DL NORMAL 06/30/2016 1:57pm 06/30/2016 2: 09pm Urine Bilirubin NEGATIVE NEGATIVE 06/30/2016 1:57pm 06/30/2016 2: 09pm Urine Blood 3+ A NEGATIVE 06/30/2016 1:57pm 06/30/2016 2:09pm Urine WBC NONE SEEN /HPF 0-5 06/30/2016 1:57pm 06/30/2016 2:11pm Urine RBC TNTC /HPF H 0-3 06/30/2016 1:57pm 06/30/2016 2:11pm Urine Squamous Epithelial Cells NONE SEEN 06/30/2016 1:57pm 2016 2:11pm Urine Bacteria NONE SEEN NEGATIVE 06/30/2016 1:57pm 06/30/2016 2: 11pm Urine Culture Indicated CULT NOT INDICATED 06/30/2016 1:57pm 2016 2:11pm White Blood Count 8.1 T/MM3 4.5-11.0 07/07/2016 1:17pm 07/07/2016 1: 37pm Red Blood Count 4.16 M/MM3 4.00-5.20 07/07/2016 1:1707/07/2016 1: 37pm Hemoglobin 9.9 GM/DL L 12-16 07/07/2016 1:1707/07/2016 1:37pm Hematocrit 32.9 % L 36-46 07/07/2016 1:07/07/2016 1:37pm Mean Corpuscular Volume 79.1 UM3 L 80-100 07/07/2016 1:07/07/2016 1 :37pm Mean Corpuscular Hemoglobin 23.8 UUG L 26-34 07/07/2016 1:2016 1:37pm Mean Corpuscular Hemoglobin Concent 30.1 GM/DL L 31-37 07/07/2016 1:07/07/2016 1:37pm RDW Standard Deviation 48.5 FL 36.9-50.2 07/07/2016 1:07/07/2016 1 :37pm Platelet Count 316 T/MM3 D 130-400 07/07/2016 1:07/07/2016 1:37pm Mean Platelet Volume 9.8 UM3 9.4-12.4 07/07/2016 1:07/07/2016 1: 37pm Neutrophils % (Manual) 74.0 % H 33-66 07/07/2016 1:07/07/2016 1: 57pm Lymphocytes % (Manual) 14.0 % L 23-45 07/07/2016 1:07/07/2016 1: 57pm Monocytes % (Manual) 4.0 % 0-9.0 07/07/2016 1:07/07/2016 1:57pm Eosinophils % (Manual) 8.0 % H 0-4 07/07/2016 1:07/07/2016 1:57pm Absolute Neutrophils (Manual) 6.0 T/MM3 1.8-7.7 07/07/2016 1:pm 07/07 1:57pm Lymphocytes # (Manual) 1.1 T/MM3 1-4.8 07/07/2016 1:pm 07/07/2016 1: 57pm Monocytes # (Manual) 0.3 T/MM3 0-0.8 07/07/2016 1:07/07/2016 1: 57pm Eosinophils # (Manual) 0.6 T/MM3 H 0-0.5 07/07/2016 1:17pm 07/07/2016 1: 57pm Red Cell Morphology Comment ABNORMAL 07/07/2016 1:17pm 07/07/2016 1 :57pm Poikilocytosis 1+ 07/07/2016 1:17pm 07/07/2016 1:57pm Eva Cells 1+ 07/07/2016 1:17pm 07/07/2016 1:57pm Ovalocytes 1+ 07/07/2016 1:17pm 07/07/2016 1:57pm Icterus Index < 2 0-7 07/07/2016 1:17pm 07/07/2016 1:44pm Chemistry Specimen Hemolysis < 15 0-25 07/07/2016 1:pm 07/07/2016 1 :44pm 0-25: Specimen Exhibited No Hemolysis. Turbidity < 20 0-20 07/07/2016 1:17pm 07/07/2016 1:44pm Sodium Level 148 MEQ/L H 134-144 07/07/2016 1:17pm 07/07/2016 1:44pm Potassium Level 3.8 MEQ/L 3.6-5 07/07/2016 1:17pm 07/07/2016 1:44pm Chloride Level 112 MEQ/L H 98-107 07/07/2016 1:17pm 07/07/2016 1:44pm Carbon Dioxide Level 24 MEQ/L 22-30 07/07/2016 1:17pm 07/07/2016 1: 44pm Anion Gap 12 MEQ/L 5-15 07/07/2016 1:17pm 07/07/2016 1:44pm Blood Urea Nitrogen 11.0 MG/DL 7-17 07/07/2016 1:17pm 07/07/2016 1: 44pm Creatinine 0.8 MG/DL 0.7-1.2 07/07/2016 1:17pm 07/07/2016 1:44pm BUN/Creatinine Ratio 14 RATIO 6-07/07/2016 1:17pm 07/07/2016 1:44pm Glomerular Filtration Rate Calc 68 07/07/2016 1:17pm 07/07/2016 1: 44pm Glucose Level 113 MG/DL H 65-110 07/07/2016 1:17pm 07/07/2016 1:44pm Calculated Osmolality 284 MOSM/KG H 261-280 07/07/2016 1:17pm 2016 1:44pm Calcium Level 8.6 MG/DL 8.4-10.2 07/07/2016 1:17pm 07/07/2016 1:44pm Total Bilirubin 1.00 MG/DL 0.20-1.30 07/07/2016 1:17pm 07/07/2016 1: 44pm Alkaline Phosphatase 131 U/L H 38-126 07/07/2016 1:07/07/2016 1: 44pm Total Protein 6.2 G/DL L 6.3-8.2 07/07/2016 1:17pm 07/07/2016 1:44pm Albumin 3.4 G/DL L 3.5-5.0 07/07/2016 1:pm 07/07/2016 1:44pm Globulin 2.8 G/DL 2.4-3.6 07/07/2016 1:pm 07/07/2016 1:44pm Albumin/Globulin Ratio 1.2 RATIO 1.1-2.2 07/07/2016 1:pm 07/07/2016 1 :44pm Aspartate Amino Transf (AST/SGOT) 23 U/L 14-36 07/07/2016 1:pm 2016 1:44pm Alanine Aminotransferase (ALT/SGPT) 32 U/L 9-52 07/07/2016 1:pm 07/07 1:44pm Lactate Dehydrogenase 505 U/L 313-618 07/07/2016 1:pm 07/07/2016 1: 44pm Carcinoembryonic Antigen 7.05 UG/L H 0-3.0 07/07/2016 1:07/07/2016 2:28pm CA 15-3 Antigen 16 U/mL <30 07/07/2016 1:07/09/2016 2:54pm ------ ADDITIONAL INFORMATION The testing method is an electrochemiluminescence assay manufactured by [employer] and performed on the Modular or Miranda system. Values obtained with different assay methods or kits may be different and cannot be used interchangeably. Test results cannot be interpreted as absolute evidence for the presence or absence of malignant disease. Test Performed by: [facility] [address] [place] [address] CA 15-3 performed at [facility], [address] [place] [address] Yarn Rewinder Yvette Saldaña MD Procedures Procedure Status Date Provider(s) Ct abd & pelv w/contrast Completed 04/27/16 788582"INFUSION, NORMAL SALINE SOLUTION , 250 CC" Completed 04/27/16 123766"LOW OSMOLAR CONTRAST MATERIAL, 300-399 MG/ML IODINE C [...] 05/15/16 PROPOFOL INJ 500 MG/50ML Completed 05/15/16 167990"INFUSION, NORMAL SALINE SOLUTION , 1000 CC" Completed 05/15/16 Pet image w/ct skull-thigh Completed 06/10/16 Percut bx lung/mediastinum Completed 06/15/16 LISA LOPES DO Chest x-ray 1 view frontal Completed 06/15/16 Chest x-ray 1 view frontal Completed 06/15/16 Ct scan for needle biopsy Completed 06/15/16 Prothrombin time Completed 06/15/16 Tissue exam by pathologist Completed 06/15/16 Path consult intraop addl Completed 06/15/16 Immunohisto antb addl slide Completed 06/15/16 [id number] ITEM OR SERVICE Completed 06/15/16 [id number]"RINGERS LACTATE INFUSION, UP TO 1000 CC" Completed 06/15/16 Us exam of head and neck Completed 06/15/16 804208"RINGERS LACTATE INFUSION, UP TO 1000 CC" Completed 06/15/16 Partial removal of colon Completed 06/26/16 MIKALA GOLDSTEIN MD Exc abd lalo 5 cm or less Completed 06/26/16 MIKALA GOLDSTEIN MD Cystoscopy & ureter catheter Completed 06/26/16 MORALES BLACKMAN MD RESECTION OF RIGHT LARGE INTESTINE, OPEN APPROACH Completed 06/26/16 MIKALA GOLDSTEIN MD EXCISION OF PERITONEUM, OPEN APPROACH Completed 06/26/16 MIKALA GOLDSTEIN MD DILATION OF RIGHT URETER WITH INTRALUMINAL DEVICE, ENDO Completed 06/26/16 MORALES BLACKMAN MD Routine venipuncture Completed 07/07/16 Comprehen metabolic panel Completed 07/07/16 Carcinoembryonic antigen Completed 07/07/16 Lactate (ld) (ldh) enzyme Completed 07/07/16 Bl smear w/diff wbc count Completed 07/07/16 Complete cbc automated Completed 07/07/16 Immunoassay tumor ca 15-3 Completed 07/07/16 Encounters Encounter Location Arrival/Admit Date Discharge/Depart Date Attending Provider Departed Emergency Room [facility] 07/18/16 11:56am 07/18/16 12: 43pm ANEUDY MCCULLOUGH APRN Registered [facility] 07/07/16 12:56pm DAVION VASQUEZ MD Discharged Inpatient [facility] 06/26/16 7:51am 07/02/16 10:30am MIKALA GOLDSTEIN MD Registered [facility] 06/15/16 8:50am MIKALA GOLDSTEIN MD Departed [facility] 06/15/16 8:49am 06/15/16 2:35pm LISA LOPES DO Registered [facility] 06/10/16 8:13am MIKALA GOLDSTEIN MD Departed [facility] 05/15/16 8:04am 05/15/16 11 :55am MIKALA GOLDSTEIN MD Registered [facility] 05/04/16 2:22pm TYE ROSARIO MD Registered [facility] 04/27/16 12:21pm TYE ROSARIO MD Registered [facility] 04/23/16 12:37pm TYE ROSARIO MD Registered [facility] 04/23/16 12:23pm TYE ROSARIO MD Recent Diagnosis
--- NOTE | 2016-08-07 16:55 | NUR ---
REPORT TO RADHA GALLO
[2016-08-07] MEDS ORDERED: LACT10SO46 PO (17:11)
--- NOTE | 2016-08-07 17:16 | NUR ---
PROVIDER DR ROCK IN TO SEE PATIENT.
--- NOTE | 2016-08-07 17:29 | ERPDOC ---
Departure Disposition Decision Date: Aug 07, 2016 Disposition Decision Time: 19:30 (PRINCE GALLEGOS DO) Disposition: 02 TO [facility] Impression Impression (MARIE ROCK MD) Impression: Primary Impression: Acute renal failure Acute renal failure type: unspecified Qualified Codes: N17.9 - Acute kidney failure, unspecified Additional Impression: Colon cancer Colon location: unspecified part of colon Qualified Codes: C18.9 - Malignant neoplasm of colon, unspecified Severity: Moderate (PRINCE GALLEGOS DO) Condition: Improved Seen By: Physician only (PRINCE GALLEGOS DO) Referrals: TYE ROSARIO MD (PCP/Family) Problems/Meds/Labs Reviewed?: Yes Medications reviewed and manag: Yes (PRINCE GALLEGOS DO) Mental Status: Alert, Oriented (MARIE ROCK MD) Follow up care ordered?: Yes Mental Status: Alert, Oriented (PRINCE GALLEGOS DO) Scripts Simethicone (Gas Relief) 125 Mg Capsule 125 MG PO Q6H Y for GAS, #20 CAP Prov: CHRIS FOX MD 08/12/16 Zinc Oxide (Zinc Oxide) 56.7 Gm Oint...g. 1 APPLIC TOP PRN Y for ANAL IRRITATION, #1 TUBE Prov: CHRIS FOX MD 08/12/16 Polyethylene Glycol 3350 (Healthylax) 17 Gm Powd.pack 17 G PO BIDWM Y for CONSTIPATION, #1 BOTTLE Prov: CHRIS FOX MD 08/12/16 Magnesium Hydroxide (Milk of Magnesia) 400 Mg/5 Ml Oral.susp 30 ML PO DAILY Y for CONSTIPATION, #1 BOTTLE Prov: CHRIS FOX MD 08/12/16 Dronabinol (Marinol) 2.5 Mg Capsule 5 MG PO BID for Appetite stimulation, #60 CAP Prov: CHRIS FOX MD 08/12/16 Mirtazapine (Mirtazapine) 15 Mg Tablet 7.5 MG PO HS for appetite stimulation, #15 TAB Prov: CHRIS FOX MD 08/12/16 Hydrocodone/Acetaminophen (Pacifica 10-325 Tablet) 10-325 Tablet 1 TAB PO Q4H Y for PAIN, #10 TAB Prov: CHRIS FOX MD 08/12/16 Fentanyl (Fentanyl 25 mcg/hr) 1 Each Patch.td72 1 REMOVAL TD Q3D, #10 Prov: CHRIS FOX MD 08/12/16 HPI - Abdominal Pain General Chief Complaint: Abdominal Pain Stated Complaint: ABD PAIN Time Seen by Provider: 16:53 (MARIE ROCK MD) Time Seen by Provider: 18:12 (PRINCE GALLEGOS DO) HPI - Abdominal Pain Initial Comments 85-year-old female with diminished by mouth intake. 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 They see Dr. Barker. They've been told that is stage IV. She is planning on starting chemotherapy next week or so, and has an appointment to have a Port-A-Cath placed. She has had significant loss of appetite, nor has she been drinking fluids. Patient has noticed that her energy is down, she is lightheaded frequently. She has abdominal pain which is worse when she tries to eat. She is been placed on Kayexalate 30 cc twice a day to try and help with bowel movement movements due to constipation. She states she is not on any narcotics yet for pain. However she starts to wonder if this is a good time to start them. Patient is incontinent of urine and stool sometimes (MARIE ROCK MD) Allergies: Coded Allergies: codeine (Unverified Adverse Reaction, Unknown, UPSET STOMACH, 08/07/16) Past History Patient Medical History Problem List Updates: Severe hard of hearing (MARIE ROCK MD) Past Medical History Metabolic: hypercholesterolemia, hypertension Cardiac: CAD (MARIE ROCK MD) Surgical History Cardiac: cardiac bypass (MARIE ROCK MD) Family History Family PMH: FOUND: [place], diabetes, hypertension (MARIE ROCK MD) Vaccines Hx Influenza Vaccination: Yes (2015) Hx Pneumococcal Vaccination: Yes (2013 ) Hx Tetanus, Diptheria, Pertuss: Yes (MARIE ROCK MD) Social History Smoking Status: Never smoker Does patient use chewing tobac: No # of Packs/Tins per Day: 1 # of Years: 34 Second Hand Exposure: No Substance Use Type: does not use Alcohol Intake: none Last Drink: unknown (MARIE ROCK MD) Record Review Pertinent history updated: Yes (MARIE ROCK MD) Review of Systems Cardiovascular Cardiac: see HPI (MARIE ROCK MD) Pulmonary Respiratory: sputum (MARIE ROCK MD) GI Upper Abdomen: see HPI Lower Abdomen: see HPI (MARIE ROCK MD) General: see HPI (MARIE ROCK MD) Musculoskeletal General: see HPI (MARIE ROCK MD) All other Systems All Other Systems: Reviewed and Negative (MARIE ROCK MD) Physical Exam General General Nourishment: adult, thin General Body Habitus: well groomed (MARIE ROCK MD) Vitals and Pain First Documented Vital Signs Date Time Temp Pulse Resp B/P Pulse Ox O2 Delivery O2 Flow Rate FiO2 08/07/16 16:44 98.4 75 20 152/69 95 Room Air (PRINCE GALLEGOS ) Vitals and Pain Weight: Kilograms: 62.600 Height (feet): 5 Height (inches): 4.00 Triage Pain Scale: (MARIE ROCK MD) Normal Exams: Head: Normocephalic w/o trauma Eyes: Pupils are PERRLA w/ EOMI, No scleral icterus, irritation, or foreign bodies noted Neck: Full range of motion, without adenopathy, JVD, bruits or thyromegaly Chest/Resp: Clear all singh, with good airflow, and symmetry bilaterally CV: Regular rate and rhythm, without murmur or gallop, Pulses 2+ all extremities, capillary refill, <2 seconds all ext., no pedal edema noted Neurologic: Patient is alert, and oriented, cranial nerves, motor/sensory/ cerebellar, exams w/o gross deficits, to observation Psychiatric: Patient exhibits, appropriate attention, emotion and affect (MARIE ROCK MD) Abdomen (brief) Comments Bowel sounds positive, very slightly tender right upper quadrant, no masses palpable. (MARIE ROCK MD) Differential Diagnoses Considering: Biliary Colic, Bowel Obstruction, Cholecystitis, Constipation, Crohn's, Diverticulitis, Ileus, Pancreatitis, Pneumonia, Ulcerative Colitis (MARIE ROCK MD) Progress Results/Orders Orders Procedure Category Date Status Time Iv Lock (Ed Only) EDM 08/07/16 Transmitted 17:37 Nothing By Mouth (Ed EDM 08/07/16 Transmitted Only) 17:37 Cbc W/Auto LAB 08/07/16 Complete Diff-Reflex Manual 17:37 Cmp - Comprehensive LAB 08/07/16 Complete Metabolic 17:37 Lipase LAB 08/07/16 Complete 17:37 Blood Culture DANIEL 4/28/17 In Process 17:37 Ua, Dip Wreflex LAB 08/07/16 Complete Microsc & [employer] Making 17:37 Normal Saline (Normal PHA 08/07/16 Complete Saline Iv) 17:37 Hydromorphone PHA 08/07/16 Complete (Dilaudid) 17:45 Ondansetron Inj PHA 08/07/16 Complete (Zofran) 17:45 Lactate - Lactic Acid LAB 08/07/16 Complete Chest, Pa & Lateral RAD 08/07/16 Taken 17:37 Lactate - Lactic Acid LAB 08/07/16 Logged 22:07 Ct Abd/Pelvis W/O CT 08/07/16 Taken Contrast 17:37 EKG EKG 08/07/16 Logged Piperacillin/Tazobactam PHA 08/07/16 In Process (Zosyn) 21:00 Place In Facility: ED ADM 08/07/16 Transmitted 19:32 Amlodipine (Norvasc) PHA 08/08/[address] Log[address] 09:00 [address] In Facility As: ADMIT 08/07/16 Transmitted 19:38 Ambulate SYED 08/07/16 In Process 19:38 Activity As Tolerated SYED 08/07/16 In Process 19:38 Clear Liquid Diet DIET 08/08/16 Transmitted Breakfast Lr (Lactated Ringers) PHA 08/07/16 Logged 19:38 Morphine Sulfate PHA 08/07/16 Logged (Morphine) 19:45 Ondansetron Inj PHA 08/07/16 Logged (Zofran) 19:45 Promethazine PHA 08/07/16 Logged (Phenergan) 19:45 Cbc W/Auto LAB 08/08/16 Verified Diff-Reflex Manual 04:00 Cmp - Comprehensive LAB 08/08/16 Verified Metabolic 04:00 Measure Vital Signs SYED 08/07/16 In Process 19:38 Compression Type Scd/ SYED 08/07/16 In Process Osorio Hose 19:38 Ceftazidime (Fortaz) PHA 08/08/16 Logged 01:00 (PRINCE GALLEGOS DO) Lab Results Laboratory Tests Test 08/07/16 17:57 08/07/16 18:03 08/07/16 19:04 White Blood Count 14.3T/MM3 Red Blood Count 4.74M/MM3 Hemoglobin 10.8GM/DL Hematocrit 34.6% Mean Corpuscular Volume 73.0UM3 Mean Corpuscular Hemoglobin 22.8UUG Mean Corpuscular Hemoglobin Concent 31.2GM/DL RDW Standard Deviation 43.9FL Platelet Count 404T/MM3 Mean Platelet Volume 10.2UM3 Immature Granulocyte % (Auto) 0.2% Neutrophils (%) (Auto) 81.6% Lymphocytes (%) (Auto) 5.5% Monocytes (%) (Auto) 8.1% Eosinophils (%) (Auto) 4.5% Basophils (%) (Auto) 0.1% Absolute Immature Granulocyte (auto 0.03T/MM3 Absolute Neutrophils (auto) 11.6T/MM3 Absolute Lymphocytes (auto) 0.8T/MM3 Absolute Monocytes (auto) 1.2T/MM3 Absolute Eosinophils (auto) 0.6T/MM3 Absolute Basophils (auto) 0.0T/MM3 Turbidity < 20 Sodium Level 140MEQ/L Potassium Level 3.2MEQ/L Chloride Level 102MEQ/L Carbon Dioxide Level 22MEQ/L Anion Gap 16MEQ/L Blood Urea Nitrogen 42.0MG/DL Creatinine 2.3MG/DL Glomerular Filtration Rate Calc 20 BUN/Creatinine Ratio 18RATIO Glucose Level 109MG/DL Calculated Osmolality 281MOSM/KG Calcium Level 8.6MG/DL Total Bilirubin 0.40MG/DL Icterus Index < 2 Aspartate Amino Transf (AST/SGOT) 21U/L Alanine Aminotransferase (ALT/SGPT) 34U/L Alkaline Phosphatase 76U/L Total Protein 6.0G/DL Albumin 3.2G/DL Globulin 2.8G/DL Albumin/Globulin Ratio 1.1RATIO Lipase 110U/L Chemistry Specimen Hemolysis < 15 Plasma Lactate 0.9MMOL/L Urine Collection Type Straight cath Urine Color Yellow Urine Turbidity Clear Urine pH 5.5 Urine Specific [place] 1.010 Urine Protein Trace Urine Glucose (UA) Negative Urine Ketones Negative Urine Blood Negative Urine Nitrite Negative Urine Bilirubin Negative Urine Urobilinogen 0.2EU/DL Urine Leukocyte Esterase Negative Urinalysis Comment Microscopic not ind. (PRINCE GALLEGOS DO) Medications Current ED Medications Sodium Chloride (Normal Saline IV) 1,000 ml @ 1,000 mls/hr Q1H ONCE IV Last administered on 08/07/16 17:59; Start 08/07/16 at 17:37; Stop 08/07/16 at 18:36 ; Status DC Hydromorphone HCl (Dilaudid) 0.25 mg O ONCE IV Last administered on 08/07/16 17:59; Start 08/07/16 at 17:45; Stop 08/07/16 at 17:46; Status DC Ondansetron HCl (Zofran) 4 mg O ONCE IV Last administered on 08/07/16 17:59; Start 08/07/16 at 17:45; Stop 08/07/16 at 17:46; Status DC (PRINCE GALLEGOS DO) Medications Current ED Medications Sodium Chloride (Normal Saline IV) 1,000 ml @ 1,000 mls/hr Q1H ONCE IV Last administered on 08/07/16 17:59; Start 08/07/16 at 17:37; Stop 08/07/16 at 18:36 ; Status DC Hydromorphone HCl (Dilaudid) 0.25 mg O ONCE IV Last administered on 08/07/16 17:59; Start 08/07/16 at 17:45; Stop 08/07/16 at 17:46; Status DC Ondansetron HCl (Zofran) 4 mg O ONCE IV Last administered on 08/07/16 17:59; Start 08/07/16 at 17:45; Stop 08/07/16 at 17:46; Status DC (MARIE ROCK MD) Progress Progress Labs and CT ordered. labs pending. (MARIE ROCK MD) Progress Labs / imaging were discussed in detail with the patient and family and questions are answered. Patient is given gentle IV hydration. Patient is started on Zosyn after blood cultures and lactic acid are obtained. Patient is given parental narcotic and antiemetic medications intravenously with improvement of symptoms. Patient will be admitted to the hospital for further evaluation and treatment secondary to the acute renal failure. Patient and family are in agreement with the current plan of management. Patient is admitted to the service of Dr. Brooks after discussion with Dr. Victoria. Patient is admitted to the hospital in improved condition. No further orders from accepting physician who is in agreement with the current plan of management. After discussion, patient is to be admitted to inpatient status to telemetry. (PRINCE GALLEGOS DO) EKG EKG : Rate: 60-100 Rhythm: sinus [place]: normal QRS: LBBB Intervals: normal ST/T: normal (EKG similar to 07/03/16.) Interpreted by: signing physician (PRINCE GALLEGOS DO) Xray Xray : Xray: CXR PA/Lat Interpretation: Normal (similar to prior exam. No acute processes. Port and sternotomy noted.), Interpreted by Me (PRINCE GALLEGOS DO) CT CT : CT: Abd/Pelvis no contrast Interpretation: Abnormal (left lower lobe focus of consolidation concerning for metastasis. Small hiatal hernia. Interval partial colonic resection. Diverticulosis. No obstruction. Interval moderate ascites and mesenteric carcinomatosis. No free air.), Faxed Report (PRINCE GALLEGOS DO) MARIE ROCK MD Aug 07, 2016 17:29 PRINCE GALLEGOS DO Aug 07, 2016 19:41
[2016-08-07] MEDS ORDERED: NORMAL SALINE 1,000 ML IV ONE (17:37)
[2016-08-07] MEDS ORDERED: HYDROMORPHONE 2mg/ml INJECTION IV ONE (17:45)
[2016-08-07] MEDS ORDERED: ONDANSETRON 4mg/2ml INJECTION IV ONE (17:45)
[2016-08-07 18:08] LABS: BASOPHILS % (AUTO) 0.1 % (0-2); EOSINOPHILS # (AUTO) 0.6 T/MM3 (0-0.5); EOSINOPHILS % (AUTO) 4.5 % (0-4); HCT - HEMATOCRIT 34.6 % (36-46); HGB - HEMOGLOBIN 10.8 GM/DL (12-16); IMMATURE GRANULOCYTE # (AUTO) 0.03 T/MM3 (0.00-0.03); IMMATURE GRANULOCYTE % (AUTO) 0.2 % (0.0-0.5); LYMPHOCYTES # (AUTO) 0.8 T/MM3 (1-4.8); LYMPHOCYTES % (AUTO) 5.5 % (23-45); MEAN CORPUSCULAR HGB 22.8 UUG (26-34); MEAN CORPUSCULAR HGB CONC(MCHC 31.2 GM/DL (31-37); MEAN PLATELET VOLUME 10.2 UM3 (9.4-12.4); MONOCYTES # (AUTO) 1.2 T/MM3 (0-0.8); MONOCYTES % (AUTO) 8.1 % (0-9.0); NEUTROPHILS #(AUTO)-ABSOLUTE 11.6 T/MM3 (1.8-7.7); NEUTROPHILS % (AUTO) 81.6 % (33-66); RED BLOOD COUNT 4.74 M/MM3 (4.00-5.20); WBC - WHITE BLOOD COUNT 14.3 T/MM3 (4.5-11.0)
[2016-08-07 18:18] LABS: ALBUMIN 3.2 G/DL (3.5-5.0); ALBUMIN/GLOBULIN RATIO 1.1 RATIO (1.1-2.2); ALKALINE PHOSPHATASE 76 U/L (38-126); ALT (SGPT) 34 U/L (9-52); ANION GAP 16 MEQ/L (5-15); AST (SGOT) 21 U/L (14-36); BUN/CREATININE RATIO 18 RATIO (6-26); CALCIUM 8.6 MG/DL (8.4-10.2); CHLORIDE 102 MEQ/L (98-107); CO2 - CARBON DIOXIDE 22 MEQ/L (22-30); CREATININE 2.3 MG/DL (0.7-1.2); GLOMERULAR FILTRATION RATE 20; GLUCOSE 109 MG/DL (65-110); LIPASE 110 U/L (23-300); POTASSIUM 3.2 MEQ/L (3.6-5); SODIUM 140 MEQ/L (134-144)
--- NOTE | 2016-08-07 18:25 | NUR ---
PROVIDER DR GALLEGOS IN TO SEE PATIENT.
--- NOTE | 2016-08-07 18:30 | NUR ---
TO CT PER CART.
--- NOTE | 2016-08-07 18:48 | NUR ---
PROVIDER DR GALLEGOS IN TO SEE PATIENT.
--- NOTE | 2016-08-07 18:48 | NUR ---
BACK FROM CT
[2016-08-07 19:07] LABS: BLOOD, URINE NEGATIVE (NEGATIVE); COLOR,URINE YELLOW (YELLOW); LEUKOCYTE ESTERASE ,URINE NEGATIVE (NEGATIVE); NITRITE,URINE NEGATIVE (NEGATIVE); UROBILINOGEN,URINE 0.2 EU/DL (NORMAL)
--- NOTE | 2016-08-07 19:16 | NUR ---
PROVIDER DR GALLEGOS IN TO SEE PATIENT.
--- NOTE | 2016-08-07 19:59 | NUR ---
REPORT GIVEN TO ANGELINE GALLO. NO QUESTIONS NOTED.
[2016-08-07 20:05] VITALS: BP 130/67; PULSE 69; RESP 20; TEMP 96.5; O2SAT 94
[2016-08-07 20:25] VITALS: Ht 152.4 cm; Wt 68.3 kg
--- NOTE | 2016-08-07 20:30 | NUR ---
Admission: Pt arrived at 2004 via cart. Pt is a&o. Pt is on room air. Pt daughter is present. Pt up with standby assist and ambulated to the bathroom, had incontinent brief and small void. Pt rates pain a 2/10 and denies need for pain meds at this time. VS Stable. 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 Pt and daughter oriented to room, call light, hospital, etc. Admission questions completed. Dr. Victoria notified that Pt is ready for [employer] visit.
[2016-08-07] MEDS: LR 1,000 ML IV SCH (20:36)
[2016-08-07] MEDS: PIPERACILLIN/TAZOBACTAM 4.5 G in NORMAL SALINE 100 ML IV SCH (20:55)
[2016-08-07] MEDS: MORPHINE SULFATE 2 MG SYRINGE IV PRN (21:03)
[2016-08-07 21:04] VITALS: PULSE 69; RESP 16
--- NOTE | 2016-08-07 21:14 | HPPDOC ---
JONI RODRIGUEZ MD 08/07/169: HPI - Adult Date DATE: 08/07/16 TIME: 20:35 General Chief Complaint: abdominal pain History of Present Illness Please note that the patient was seen via telemedicine with nursing assistance on 08/07/2016. Mrs. Martinez is a pleasant 85yo woman with h/o CAD 2006 " maker," HTN, dyslipidemia before diagnosis of colon cancer this year s/p resection by Dr. Lopez this month and pending 08/11/2016 port for chemo now with a few days of increased abd pain and nausea. Started on lactulose recently with other bowel regimens, and had a BM today. Incision healing fine with no fevers, chills, CP or SOB. Constant pain over 5/10 in the lower quadrants now 2/10. No emesis with nausea, and has been with appetite at times still. Past Medical History Past Medical History Patient's Medical History: (1) CAD (coronary artery disease) (2) HTN (hypertension) (3) Dyslipidemia (4) Metastatic colon cancer in female Severe hard of hearing Surgical History Patient's Surgical History: colonic resection this month with prior port in place Current Medications Home Meds Reported Medications Lactulose (Generlac) 10 Gm/15 Ml Solution, 30 ML PO Q8H Y for PRN ORDERS 08/07/16 Ibuprofen (Ibuprofen) 200 Mg Tablet, 400 MG PO Q4H Y for PAIN 06/15/16 Diphenhydramine HCl (Benadryl) 25 Mg Capsule, 25 MG PO Q4HR Y for ALLERY SYMPTOMS 06/15/16 Ondansetron (Ondansetron Odt) 8 Mg Tab.rapdis, 4 MG PO Q6H Y for NAUSEA 06/15/16 Lorazepam (Lorazepam) 0.5 Mg Tablet, 0.5 MG PO TID Y for ANXIETY 06/15/16 Acetaminophen (Acetaminophen) 500 Mg Tablet, 1000 MG PO Q8H Y for PAIN 06/15/16 Niacin (Niacin) 100 Mg Tablet, 100 MG PO PRN 06/15/16 Simvastatin (Simvastatin) 20 Mg Tablet, 20 MG PO HS 06/15/16 Amlodipine Besylate (Amlodipine Besylate) 5 Mg Tablet, 5 MG PO DAILY 06/15/16 Hydralazine HCl (Hydralazine HCl) 50 Mg Tablet, 50 MG PO BIDWM 06/15/16 Triamterene/Hydrochlorothiazid (Triamterene-Hctz 37.5-25 mg Cp) 1 Each Capsule, 1 CAP PO DAILY 06/15/16 Allergies: Coded Allergies: codeine (Unverified Adverse Reaction, Unknown, UPSET STOMACH, 08/07/16) Family History Family History: parents not with cancer Social History Smoking Status: Never smoker Does patient use chewing tobac: No # of Packs/Tins per Day: 1 # of Years: 34 Second Hand Exposure: No Substance Use Type: does not use Alcohol Intake: none Last Drink: unknown Review of Systems Unable to Obtain Comments 10+ systems negative aside from in HPI Physical Exam General General Nourishment: well nourished, well developed, apparent age, adult General Body Habitus: well groomed Vital Signs Vital Signs Date Time Temp Pulse Resp B/P Pulse Ox O2 Delivery O2 Flow Rate FiO2 08/07/16 20:05 96.5 69 20 130/67 94 Room Air Height (Feet): 5 Height (Inches): 0.00 Telemetry Rhythm: Sinus Rhythm Eyes Brief: FOUND: EOMI Respiratory Brief: FOUND: clear all singh, equal bilaterally, NOT FOUND: wheezes Cardiovascular (brief) Cardiac Brief: FOUND: regular rate, regular rhythm, NOT FOUND: murmur Abdomen (brief) Abdominal Brief: FOUND: BS normo active x4, soft Comments slightly distended Integumentary (brief) Integumentary Brief: FOUND: pink Comments abdominal surgical site healing very well Neurologic RN Documented GCS Eye Opening: Verbal: Motor: Total: Psychiatric (brief) FOUND: alert, attentive, normal affect, oriented Laboratory Laboratory Tests Test 08/07/16 17:57 08/07/16 18:03 08/07/16 19:04 White Blood Count 14.3T/MM3 Red Blood Count 4.74M/MM3 Hemoglobin 10.8GM/DL Hematocrit 34.6% Mean Corpuscular Volume 73.0UM3 Mean Corpuscular Hemoglobin 22.8UUG Mean Corpuscular Hemoglobin Concent 31.2GM/DL RDW Standard Deviation 43.9FL Platelet Count 404T/MM3 Mean Platelet Volume 10.2UM3 Immature Granulocyte % (Auto) 0.2% Neutrophils (%) (Auto) 81.6% Lymphocytes (%) (Auto) 5.5% Monocytes (%) (Auto) 8.1% Eosinophils (%) (Auto) 4.5% Basophils (%) (Auto) 0.1% Absolute Immature Granulocyte (auto 0.03T/MM3 Absolute Neutrophils (auto) 11.6T/MM3 Absolute Lymphocytes (auto) 0.8T/MM3 Absolute Monocytes (auto) 1.2T/MM3 Absolute Eosinophils (auto) 0.6T/MM3 Absolute Basophils (auto) 0.0T/MM3 Turbidity < 20 Sodium Level 140MEQ/L Potassium Level 3.2MEQ/L Chloride Level 102MEQ/L Carbon Dioxide Level 22MEQ/L Anion Gap 16MEQ/L Blood Urea Nitrogen 42.0MG/DL Creatinine 2.3MG/DL Glomerular Filtration Rate Calc 20 BUN/Creatinine Ratio 18RATIO Glucose Level 109MG/DL Calculated Osmolality 281MOSM/KG Calcium Level 8.6MG/DL Total Bilirubin 0.40MG/DL Icterus Index < 2 Aspartate Amino Transf (AST/SGOT) 21U/L Alanine Aminotransferase (ALT/SGPT) 34U/L Alkaline Phosphatase 76U/L Total Protein 6.0G/DL Albumin 3.2G/DL Globulin 2.8G/DL Albumin/Globulin Ratio 1.1RATIO Lipase 110U/L Chemistry Specimen Hemolysis < 15 Plasma Lactate 0.9MMOL/L Urine Collection Type Straight cath Urine Color Yellow Urine Turbidity Clear Urine pH 5.5 Urine Specific [place] 1.010 Urine Protein Trace Urine Glucose (UA) Negative Urine Ketones Negative Urine Blood Negative Urine Nitrite Negative Urine Bilirubin Negative Urine Urobilinogen 0.2EU/DL Urine Leukocyte Esterase Negative Urinalysis Comment Microscopic not ind. Assessment & Plan Problems: (1) Metastatic colon cancer in female Status: Acute Assessment & Plan: full admit with the ARF with IVF, supportive care. CT with evidence of carcinomatosis and this woman will need an extended release narcotic plan with bowel regimen. No acute surgical issue on CT. prn surgery consult but will give cephalosporin for ascites and leukocytosis for now. No sepsis evident though. (2) Acute renal failure Status: Acute Qualifiers: Acute renal failure type: unspecified Qualified Codes: N17.9 - Acute kidney failure, unspecified Assessment & Plan: Not ATN and likely all prerenal by exam and normally on HCTZ which will be held. IVF and repeat labs. (3) CAD (coronary artery disease) Status: Chronic Assessment & Plan: statin and see below. No asa with the cancer now, and ? no bblocker. (4) HTN (hypertension) Status: Chronic Qualifiers: Hypertension type: essential hypertension Qualified Codes: I10 - Essential (primary) hypertension Assessment & Plan: only continue the amlodipine for now. (5) Dyslipidemia Status: Chronic DVT Prophylaxis: SCD'S Code Status Do Not Resuscitate Hospital Course Summary Disclaimer The hospital course summary below is not to be considered part of the above Progress Note. CHRIS FOX MD 08/08/16 1309: Past Medical History Current Medications Home Meds Reported Medications Lactulose (Generlac) 10 Gm/15 Ml Solution, 30 ML PO Q8H Y for PRN ORDERS 08/07/16 Ibuprofen (Ibuprofen) 200 Mg Tablet, 400 MG PO Q4H Y for PAIN 06/15/16 Diphenhydramine HCl (Benadryl) 25 Mg Capsule, 25 MG PO Q4HR Y for ALLERY SYMPTOMS 06/15/16 Ondansetron (Ondansetron Odt) 8 Mg Tab.rapdis, 4 MG PO Q6H Y for NAUSEA 06/15/16 Lorazepam (Lorazepam) 0.5 Mg Tablet, 0.5 MG PO TID Y for ANXIETY 06/15/16 Acetaminophen (Acetaminophen) 500 Mg Tablet, 1000 MG PO Q8H Y for PAIN 06/15/16 Niacin (Niacin) 100 Mg Tablet, 100 MG PO PRN 06/15/16 Simvastatin (Simvastatin) 20 Mg Tablet, 20 MG PO HS 06/15/16 Amlodipine Besylate (Amlodipine Besylate) 5 Mg Tablet, 5 MG PO DAILY 06/15/16 Hydralazine HCl (Hydralazine HCl) 50 Mg Tablet, 50 MG PO BIDWM 06/15/16 Triamterene/Hydrochlorothiazid (Triamterene-Hctz 37.5-25 mg Cp) 1 Each Capsule, 1 CAP PO DAILY 06/15/16 Allergies: Coded Allergies: codeine (Unverified Adverse Reaction, Unknown, UPSET STOMACH, 08/07/16) Assessment & Plan Problems: (1) Acute renal failure Status: Acute Qualifiers: Acute renal failure type: unspecified Qualified Codes: N17.9 - Acute kidney failure, unspecified Assessment & Plan: 3 fold increase of creatinine noted - 0.6 on 06/29, 2.3 at presentation. Not ATN and likely all prerenal by exam and normally on HCTZ which will be held. (2) Hypokalemia Status: Acute Assessment & Plan: POA (3) Abdominal pain Status: Acute Qualifiers: Abdominal location: generalized Qualified Codes: R10.84 - Generalized abdominal pain (4) Abdominal carcinomatosis Status: Acute (5) Metastatic colon cancer in female Status: Acute Assessment & Plan: full admit with the ARF with IVF, supportive care. CT with evidence of carcinomatosis and this woman will need an extended release narcotic plan with bowel regimen. No acute surgical issue on CT. prn surgery consult but will give cephalosporin for ascites and leukocytosis for now. No sepsis evident though. (6) Anorexia Status: Acute Assessment & Plan: Secondary to abdominal carcinomatosis. (7) CAD (coronary artery disease) Status: Chronic Assessment & Plan: statin and see below. No asa with the cancer now, and ? no bblocker. (8) HTN (hypertension) Status: Chronic Qualifiers: Hypertension type: essential hypertension Qualified Codes: I10 - Essential (primary) hypertension Assessment & Plan: only continue the amlodipine for now. (9) Dyslipidemia Status: Chronic (10) Stage III chronic kidney disease Status: Chronic (11) Nocturnal hypoxemia Status: Chronic (12) Hard of hearing Status: Chronic Qualifiers: Hearing loss type: unspecified Laterality: bilateral Qualified Codes: H91.93 - Unspecified hearing loss, bilateral (13) Sigmoid diverticulosis Status: Chronic Plan/Intensity of Service Have independently interviewed and examined pt. Chart reviewed. Above note reviewed and concur. CC: Abdominal pain, decreased appetite HPI: 85 y/o WF presents to ED due to progressive ab pain. Was hospitalized last month at [facility] [place] and found to have metastatic colon CA. Had resection. Since discharge, bowel function has never returned. Recently stated on Lactulose to help stimulate bowel function - found that this would cause increased ab bloating and cramps. Appetite has been diminished-not feeling hungry, not wanting to eat, nothing sounds good. Some nausea at home, but not with emesis there. Ab pain worsening over past 2-3 days - previously Ibuprofen would control pain. Given oxycodone, but didn't use often as did not like how it made her feel (cannot specify in what way). Progressively more weak and unsteady in last 2 day. PHMx: Reviewed. CAD with CABG, HTN, hyperlipidemia, Stage 3 CKD, Nocturnal hypoxia, [employer], Hx Breast CA, OA, Hx back fusion. Meds/allergies reviewed and concur. SHx: , resides independently. Quit smoking 04/12/1998. Mattar for ONC. FHx: DM, HTN. ROS: as above. Gen: no f/c. HEENT: vision/hearing stable. Lungs: No cough/ congestion/sputum/SOA. CV: no chest pain/palpitation. : notes incontinency when stands. No urinary pain. Neurologic: Globally weak, no localizing symptoms. Remainder of 10 point ROS reviewed and negative. EXAM Gen: [id number] A&O [employer], but communicates well. HEENT: NC/AT PERRLA EOMI MM dry Neck: midline, supple, Lungs: clear bilaterally. No crackle or wheezes. No distress on RA CV: regular rate and rhythm AB: soft, mild diffuse tenderness. Distended (ascites). BS present EXT: no edema Neurological: CN II-XII intact. No focal deficits Psych: awake alert appropriate Skin: warm and dry Assessment: as above Plan: Continue IVF for NUNU and to help stimulate bowel function. Replace potassium IV - not certain if pt will be able to tolerated Oral potassium. Check magnesium due to hypokalemia. Pain control - Prn Dilaudid, could try [place] prn (hold ibuprofen due to NUNU). Hold Lactulose due to pts ab symptoms with this medication-start Miralax BID with meals (prn bowel medications okay). Add Remeron 7.5mg at night to help stimulate bowel function. Monitor lab. SCD for DVT prevention. Hospital Course Summary Hospital Course Summary 08/07 Full admit with the ARF with IVF, supportive care. CT with evidence of carcinomatosis and this woman will need an extended release narcotic plan with bowel regimen. No acute surgical issue on CT. prn surgery consult but will give Zosyn for ascites and leukocytosis for now. No sepsis evident though. 08/08 Continue IVF for NUNU and to help stimulate bowel function. Creatinine decreased to 2.1. Potassium decreased to 2.9 - replace potassium IV - not certain if pt will be able to tolerated Oral potassium. Check magnesium due to hypokalemia. Pain control - Prn Dilaudid, could try [place] prn (hold ibuprofen due to NUNU). Hold Lactulose due to pts ab symptoms with this medication-start Miralax BID with meals (prn bowel medications okay). Add Remeron 7.5mg at night to help stimulate bowel function. Monitor lab. SCD for DVT prevention. JONI RODRIGUEZ MD Aug 07, 2016 20:39 CHRIS FOX MD Aug 08, 2016 13:09
[2016-08-08] VITALS (10 sets, daily range): BP systolic 114–121; BP diastolic 60–72; PULSE 66–82; RESP 16–20; TEMP 95.8–98.5; O2SAT 90–97
[2016-08-08] MEDS: MORPHINE SULFATE 2 MG SYRINGE IV PRN (00:27)
[2016-08-08] MEDS: ONDANSETRON 4mg/2ml INJECTION IV PRN ×3 (00:32→17:43)
--- NOTE | 2016-08-08 00:40 | NUR ---
PAIN: AFTER TAKING MIDNIGHT VITALS, PT AMBULATED TO THE BATHROOM AND REQUESTED PAIN AND NAUSEA MEDICATION (SEE EMAR). GAVE ZOFRAN FOR NAUSEA AND MORPHINE FOR PAIN. WILL CONTINUE TO MONITOR.
[2016-08-08] MEDS ORDERED: CEFTAZIDIME IV SCH (01:00)
[2016-08-08] MEDS ORDERED: NORMAL SALINE IV SCH (01:00)
[2016-08-08] MEDS: HYDROMORPHONE 2mg/ml INJECTION IV PRN ×4 (01:44→22:26)
--- NOTE | 2016-08-08 01:50 | NUR ---
PAIN: PT'S PAIN WAS NOT RESOLVED WITH MORPHINE. SENT TIGER TEXT REGARDING PT'S SITUATION. REC'D TEXT STATING AN ORDER FOR PRN DILAUDID WOULD BE PLACED. ADMINISTERED DILAUDID. WILL CONTINUE TO MONITOR.
[2016-08-08] MEDS: PIPERACILLIN/TAZOBACTAM 4.5 G in NORMAL SALINE 100 ML IV SCH (03:03)
--- NOTE | 2016-08-08 03:50 | NUR ---
PAIN RESOLVED: TAKING PT'S VITALS, I ASKED WHAT HER PAIN WAS, PT STATED THAT SHE HAD NO PAIN. WILL PASS INFORMATION ON TO DAY SHIFT.
[2016-08-08 05:08] LABS: BASOPHILS % (AUTO) 0.1 % (0-2); EOSINOPHILS # (AUTO) 0.7 T/MM3 (0-0.5); EOSINOPHILS % (AUTO) 5.1 % (0-4); HCT - HEMATOCRIT 33.2 % (36-46); HGB - HEMOGLOBIN 10.1 GM/DL (12-16); IMMATURE GRANULOCYTE # (AUTO) 0.02 T/MM3 (0.00-0.03); IMMATURE GRANULOCYTE % (AUTO) 0.1 % (0.0-0.5); LYMPHOCYTES # (AUTO) 0.8 T/MM3 (1-4.8); LYMPHOCYTES % (AUTO) 5.8 % (23-45); MEAN CORPUSCULAR HGB 22.3 UUG (26-34); MEAN CORPUSCULAR HGB CONC(MCHC 30.4 GM/DL (31-37); MEAN CORPUSCULAR VOLUME 73.5 UM3 (80-100); MEAN PLATELET VOLUME 10.2 UM3 (9.4-12.4); MONOCYTES # (AUTO) 0.9 T/MM3 (0-0.8); MONOCYTES % (AUTO) 6.3 % (0-9.0); NEUTROPHILS #(AUTO)-ABSOLUTE 11.1 T/MM3 (1.8-7.7); NEUTROPHILS % (AUTO) 82.6 % (33-66); RED BLOOD COUNT 4.52 M/MM3 (4.00-5.20); WBC - WHITE BLOOD COUNT 13.4 T/MM3 (4.5-11.0)
[2016-08-08 05:20] LABS: ALBUMIN 2.8 G/DL (3.5-5.0); ALBUMIN/GLOBULIN RATIO 1.2 RATIO (1.1-2.2); ALKALINE PHOSPHATASE 101 U/L (38-126); ALT (SGPT) 46 U/L (9-52); ANION GAP 15 MEQ/L (5-15); AST (SGOT) 93 U/L (14-36); BUN/CREATININE RATIO 19 RATIO (6-26); CHLORIDE 105 MEQ/L (98-107); CO2 - CARBON DIOXIDE 21 MEQ/L (22-30); CREATININE 2.1 MG/DL (0.7-1.2); GLOMERULAR FILTRATION RATE 22; GLUCOSE 127 MG/DL (65-110); SODIUM 141 MEQ/L (134-144); TOTAL PROTEIN 5.2 G/DL (6.3-8.2)
[2016-08-08 05:48] LABS: POTASSIUM 2.9 MEQ/L (3.6-5)
--- NOTE | 2016-08-08 05:58 | NUR ---
LOW POTASSIUM: REC'D CALL FROM LAB REGARDING PT'S LOW POTASSIUM, 2.9 (WAS 3.2). SENT TIGER TEXT, AND REC'D MESSAGE BACK FOR AN ORDER OF POTASSIUM TO BE PLACED. WILL ADMINISTER (SEE EMAR) AND PASS INFORMATION ON TO DAY SHIFT.
[2016-08-08] MEDS ORDERED: POTASSIUM CHLORIDE 20 MEQ TABLET PO ONE (06:15)
--- NOTE | 2016-08-08 07:30 | NUR ---
SHIFT SUMMARY: PT IS A&OX3, FRIENDLY AND COOPERATIVE, ROOM AIR DURING THE DAY, BUT ON 1L 02 NC AT NIGHT, IV FLUIDS RUNNING AT 100 MLS/HR (LR, AND ANTIBIOTICS), CLEAR LIQUID DIET, Q4 VITALS, WEARS SCD'S FOR A FEW HOURS, THEN OFF; PT EXPERIENCED SEVERE PAIN DUE TO HER DISEASE PROCESS (SEE PREVIOUS NURSE NOTES REGARDING PAIN MEDICATION ADMIN EMAR). CALL LIGHT WITHIN REACH, BED ALARM ON.
[2016-08-08] MEDS ORDERED: POTASSIUM CHLORIDE 20 MEQ TABLET PO SCH (08:00)
[2016-08-08] MEDS: LR 1,000 ML IV SCH ×2 (08:46→15:38)
[2016-08-08] MEDS ORDERED: LACTULOSE 20 GM/30 ML UD PO SCH (09:00)
--- NOTE | 2016-08-08 09:10 | NUR ---
PT FEELS NAUSEATED. GIVEN IV ZOFRAN
[2016-08-08] MEDS: AMLODIPINE 5 MG TABLET PO SCH (09:37)
[2016-08-08] MEDS: PIPERACILLIN/TAZOBACTAM 2.25 G in NORMAL SALINE 100 ML IV SCH ×2 (10:58→18:06)
--- NOTE | 2016-08-08 11:48 | NUR ---
PATI BARROS IS 12. ROTP WILL BE ADDRESSED WITH PT AND DAUGHTER. Addendum: 08/08/16 at 1149 by BRITT SYLVESTER Amended: Links added.
--- NOTE | 2016-08-08 11:50 | NUR ---
CM THIS WORKER SPOKE WITH PT, INTRODUCED SELF, EXPLAINED ROLE, PROVIDED CONTACT INFO. PT STATED SHE IS NOT FEELING WELL, SHE IS "SICK" AND DID NOT WANT TO SPEAK. SHE ASKED THIS WORKER TO TALK TO HER DAUGHTER, JERI. THIS WORKER CALLED JAMAR. INTRODUCED SELF, EXPLAINED ROLE, PROVIDED CONTACT INFO. JERI SAID PT LIVES IN HER OWN HOME IN [place]. SHE SAID PT HAS A LIFE ALERT BUTTON. SHE SAID PT WILL BE MOVING INTO AN APARTMENT ON AUGUST 21, THAT IS NEAR JERI AND PT'S GRANDDAUGHTER. SHE SAID THE PLAN IS FOR HER AND GRANDDAUGHTER TO BE AVAILABLE TO PROVIDE ASSISTANCE IF NEEDED. HOWEVER, SHE SAID SHE IS UNSURE OF HOW TO PROCEED, AND HAS THOUGHT ABOUT HOSPICE. SHE SAID PT IS GOING TO START CHEMO NEXT WEEK, AND THE CHEMO SCHEDULE IS EVERY 2 WEEKS. DISCUSSED THAT USUALLY PT WOULD NEED TO DECIDE IF SHE IS ON HOSPICE/COMFORT CARE OR CHEMO/TREATMENT. DAUGHTER ALSO MENTIONED SKILLED FACILITY; AND THIS WORKER EXPLAINED CHEMO MIGHT BE A BARRIER TO THAT. THIS WORKER EXPLAINED DC PLAN WILL BE PENDING, BASED ON WHAT PT'S NEEDS ARE AND WHAT HER PLAN OF CARE WILL BE. ENCOURAGED DAUGHTER TO SPEAK WITH THE DOCTORS AND DECIDE WHAT THE PLAN OF CARE WILL BE. Addendum: 08/08/16 at 1155 by BRITT SYLVESTER Amended: Links added.
[2016-08-08] MEDS ORDERED: HYDROCODONE/APAP 5 mg/325 mg TABLET PO PRN (13:00)
[2016-08-08] MEDS ORDERED: MILK OF MAGNESIA 30 ML SUSP PO PRN (13:00)
[2016-08-08] MEDS ORDERED: LORAZEPAM 2 MG/ML INJECTION IV PRN (13:00)
[2016-08-08] MEDS ORDERED: PRN ORDERS MC (13:00)
[2016-08-08] MEDS ORDERED: MAG-AL + SIM LIQUID 30 ML UDC PO PRN (13:00)
[2016-08-08] MEDS ORDERED: BISACODYL 10 MG SUPPOSITORY RECTALLY PRN (13:00)
[2016-08-08] MEDS ORDERED: NITROGLYCERIN 0.4 MG SUBLINGUAL TABLET SL PRN (13:00)
[2016-08-08] MEDS ORDERED: ACETAMINOPHEN 325 MG TABLET PO PRN (13:00)
[2016-08-08] MEDS: PROMETHAZINE 25 MG INJECTION IV PRN ×2 (13:01→22:14)
[2016-08-08] MEDS: POTASSIUM CHLORIDE 10 MEQ, LIDOCAINE 1% 10 MG in NORMAL SALINE 100 ML IV SCH ×4 (13:47→23:43)
[2016-08-08] MEDS: POLYETHYL.GLYCOL 3350 PACKET 17gm PO SCH (17:44)
[2016-08-08] MEDS: SIMETHICONE 125 MG CAPSULE PO PRN (17:55)
--- NOTE | 2016-08-08 18:34 | NUR ---
STATUS PT HAS RECEIVED 2 DOSES OF DILAUDID TODAY FOR ABDOMINAL PAIN 2 DOSES OF ZOFRAN AND 1 DOSE OF PHENERGAN PT ALERT AND ORIENTED X3. HARD OF HEARING. IV INFUSING POTASSIUM BOLUSES. UP WITH ONE PERSON STAND PIVOT TO BEDSIDE COMMODE. CURRENTLY IN BED WITH BED ALARM ON AND CALL LIGHT IN REACH. ENCOURAGING EATING. PT HAS HAD POOR APPETITE.
[2016-08-08] MEDS: MIRTAZAPINE 15 MG TABLET PO SCH (22:20)
[2016-08-09] VITALS (8 sets, daily range): BP systolic 102–152; BP diastolic 61–76; PULSE 72–93; RESP 12–24; TEMP 96.4–98.2; O2SAT 90–95
[2016-08-09] MEDS: LR 1,000 ML IV SCH ×3 (01:38→21:36)
[2016-08-09] MEDS: HYDROMORPHONE 2mg/ml INJECTION IV PRN ×4 (01:53→22:39)
[2016-08-09] MEDS: ONDANSETRON 4mg/2ml INJECTION IV PRN (01:53)
[2016-08-09] MEDS: PIPERACILLIN/TAZOBACTAM 2.25 G in NORMAL SALINE 100 ML IV SCH ×3 (03:52→18:30)
[2016-08-09] MEDS: NS 500 ML IV PRN (03:52)
[2016-08-09 05:45] LABS: HCT - HEMATOCRIT 35.6 % (36-46); HGB - HEMOGLOBIN 10.8 GM/DL (12-16); MEAN CORPUSCULAR HGB 22.5 UUG (26-34); MEAN CORPUSCULAR HGB CONC(MCHC 30.3 GM/DL (31-37); MEAN PLATELET VOLUME 10.6 UM3 (9.4-12.4); RED BLOOD COUNT 4.81 M/MM3 (4.00-5.20); WBC - WHITE BLOOD COUNT 17.1 T/MM3 (4.5-11.0)
[2016-08-09 06:01] LABS: ALBUMIN 2.8 G/DL (3.5-5.0); ALKALINE PHOSPHATASE 135 U/L (38-126); ALT (SGPT) 82 U/L (9-52); ANION GAP 12 MEQ/L (5-15); AST (SGOT) 112 U/L (14-36); BUN/CREATININE RATIO 19 RATIO (6-26); CALCIUM 8.1 MG/DL (8.4-10.2); CHLORIDE 109 MEQ/L (98-107); CO2 - CARBON DIOXIDE 22 MEQ/L (22-30); CREATININE 1.9 MG/DL (0.7-1.2); GLOMERULAR FILTRATION RATE 25; GLUCOSE 106 MG/DL (65-110); MAGNESIUM 2.5 MG/DL (1.6-2.3); POTASSIUM 4.6 MEQ/L (3.6-5); SODIUM 143 MEQ/L (134-144); TOTAL PROTEIN 5.5 G/DL (6.3-8.2)
[2016-08-09 06:21] LABS: LYMPHOCYTES # (MANUAL) 2.2 T/MM3 (1-4.8); MONOCYTES # (MANUAL) 0.3 T/MM3 (0-0.8); NEUTROPHILS #(MANUAL)-ABSOLUTE 14.5 T/MM3 (1.8-7.7); TOTAL CELLS COUNTED 100 %
[2016-08-09 06:22] LABS: ANISOCYTOSIS 1+; BURR CELLS 1+; OVALOCYTES 1+; POIKILOCYTOSIS 1+
--- NOTE | 2016-08-09 06:55 | NUR ---
Status Pt A/Ox3. [place]. Significant abdominal pain. Dilaudid given x2 proceeded once by phenergan and once by Zofran to avoid dilaudid induced nausea. Pt Pt had some thick phlegm in back of throat in evening which she was able to cough out with nursing assistance. Pt stated that it made it difficult to breathe and scared her. Incontinent of urine several times during night. Used BSC with stand-pivot transfer. Daughter, Urmila, called in the evening and asked for a report. Report given. Bed alarm on. Call light within reach. Will continue to monitor.
[2016-08-09] MEDS: POLYETHYL.GLYCOL 3350 PACKET 17gm PO SCH ×2 (08:39→17:41)
[2016-08-09] MEDS: AMLODIPINE 5 MG TABLET PO SCH (08:40)
[2016-08-09] MEDS: PROMETHAZINE 25 MG INJECTION IV PRN (09:54)
[2016-08-09] MEDS: FENTANYL 12MCG/HR PATCH TD SCH (10:36)
--- NOTE | 2016-08-09 10:38 | NUR ---
PAIN PT REPORTS PAIN OF 9/10 ALL OVER. PT BEGAN SHOWING SIGNS OF AN ANXIETY ATTACK. PRN DILAUDID, PHENERGAN AND ATIVAN GIVEN IV. PT IS NOW SLEEPING AND NEW ORDER FOR FENTANYL RECEIVED. PATCH PLACED TO RIGHT UPPER CHEST.
--- NOTE | 2016-08-09 13:23 | DI ---
INDICATION: ITS.REASON: weakness PROCEDURE: CHEST 2-VIEWS UPRIGHT (PA \T\ LAT) Encounter: Initial Comparison: June 15, 2016 Findings: The lungs are stable in appearance without new focal airspace consolidation. There is no pleural effusion or pneumothorax. The heart size, pulmonary vascularity and mediastinal contours are unchanged. Prior sternotomy. Right subclavian port. IMPRESSION: Stable appearance of the chest without acute cardiopulmonary disease. .
--- NOTE | 2016-08-09 13:27 | DI ---
Indication: ITS.REASON: metastatic cancer to abdomen PROCEDURE: CT ABD/PELVIS W/O CONTRAST: Encounter: Initial Comparison: April 27, 2016 Technique: Axial CT images were performed through the abdomen and pelvis without intravenous contrast. Coronal and sagittal two-dimensional reformats. Automated Exposure Control and Iterative Reconstruction dose reducing techniques were utilized. Findings: Left lower lobe lung mass is unchanged in appearance. New moderate ascites. Slightly nodular liver. Large hiatal hernia. Spleen, pancreas, adrenal glands and kidneys are stable. New omental metastatic disease. Interval colon surgery. Bladder is grossly normal. Severe sigmoid diverticulosis without obvious diverticulitis. Diverticulosis also involving the left colon. Prior right hemicolectomy. Numerous areas of omental nodularity and thickening have developed since the prior study. Bone windows are stable. Impression: New extensive omental metastatic disease with malignant ascites. Stable left lower lobe mass. No evidence of bowel obstruction. There is a preliminary report by [facility]. .
--- NOTE | 2016-08-09 13:42 | NUR ---
STARKEY STARKEY INSERTED IN BLADDER, PT STATES THIS WAS SLIGHTLY PAINFUL. PRN PAIN MEDS OFFERED, PT DECLINED. EVERETTE RAO PLACING MID LINE WE SPEAK.
--- NOTE | 2016-08-09 14:44 | PNPDOC ---
Subjective Date DATE: 08/09/16 TIME: 14:29 Subjective F/U: NUNU, Ab pain, N/V Rough day. Pain and anxiety this morning. Dilaudid, lorazepam, and antiemetics helped. Ab pain about the same overall-still crampy/gassy. No appetite. Passing some flatus. Breathing stable. No chest pain. Very tired and weak in general. Objective Vital Signs Vital signs Vital Signs Date Time Temp Pulse Resp B/P Pulse Ox O2 Delivery O2 Flow Rate FiO2 08/09/16 13:01 97.5 83 16 106/67 95 Room Air 08/08/16 04:02 1.00 Telemetry Rhythm: Sinus Rhythm Height (Feet): 5 Height (Inches): 0.00 Weight (Kilograms): 64.400 General General Appearance: Alert, Well Nourished, Well Developed, Mild Distress, Looks Stated Age Eyes (Brief) Eyes: FOUND: EOMI, PERRL ENMT (Brief) ENMT: FOUND: hearing intact ([place]), mucosa moist Neck (Brief) Neck: FOUND: midline, NOT FOUND: nuchal rigidity, spasm Respiratory (Brief) Respiratory: FOUND: clear all singh, equal bilaterally, NOT FOUND: rales, wheezes Cardiovascular (Brief) Cardiac: FOUND: regular rate, regular rhythm Abdomen (Brief) Abdominal: FOUND: BS normo active x4 (Decreased ), distended (Acities ), soft, tender (Mild, no rebound ) (Brief) Female: FOUND: other (Rain placed ) Extremities (Brief) Extremity : Side: Bilateral Extremity: leg Extremity Finding: FOUND: edema (+1 ) Musculoskeletal (Brief) Musculoskeletal: NOT FOUND: deformity, spasm Integumentary (Brief) Integumentary: FOUND: dry, warm Neurologic (Brief) Neurological: FOUND: cranial 2-12 intact, motor (Intact ) Psychiatric (Brief) Psychiatric: FOUND: alert, attentive, other (Appears tired and weak ) Laboratory Laboratory Laboratory Tests 08/07/16 17:57 08/08/16 04:02 08/09/16 04:49 Laboratory Tests 08/07/16 17:57 08/08/16 04:02 08/09/16 04:49 Microbiology Microbiology Microbiology Date/Time Source Procedure Growth Status 08/07/16 18:03 Peripheral/Iv Start Blood Culture - Preliminary NO GROWTH AFTER 24 HOURS Resulted 08/07/16 17:57 Peripheral/Iv Start Blood Culture - Preliminary NO GROWTH AFTER 24 HOURS Resulted Assessment & Plan Problems: (1) Acute renal failure Status: Acute Qualifiers: Acute renal failure type: unspecified Qualified Codes: N17.9 - Acute kidney failure, unspecified Assessment & Plan: POA: 3 fold increase of creatinine noted - 0.6 on 06/29, 2.3 at presentation. (2) Hypokalemia Status: Resolved Assessment & Plan: POA (3) Abdominal pain Status: Acute Qualifiers: Abdominal location: generalized Qualified Codes: R10.84 - Generalized abdominal pain Assessment & Plan: Suspect secondary to abdominal carcinomatosis (4) Abdominal carcinomatosis Status: Acute (5) Metastatic colon cancer in female Status: Acute Assessment & Plan: full admit with the ARF with IVF, supportive care. CT with evidence of carcinomatosis and this woman will need an extended release narcotic plan with bowel regimen. No acute surgical issue on CT. prn surgery consult but will give cephalosporin for ascites and leukocytosis for now. No sepsis evident though. (6) Elevated liver enzymes Status: Acute (7) Anorexia Status: Acute Assessment & Plan: Secondary to abdominal carcinomatosis. (8) CAD (coronary artery disease) Status: Chronic (9) HTN (hypertension) Status: Chronic Qualifiers: Hypertension type: essential hypertension Qualified Codes: I10 - Essential (primary) hypertension Assessment & Plan: only continue the amlodipine for now. (10) Dyslipidemia Status: Chronic Assessment & Plan: Statin on hold currently due to elevated liver enzymes. (11) Stage III chronic kidney disease Status: Chronic (12) Nocturnal hypoxemia Status: Chronic (13) Hard of hearing Status: Chronic Qualifiers: Hearing loss type: unspecified Laterality: bilateral Qualified Codes: H91.93 - Unspecified hearing loss, bilateral (14) Sigmoid diverticulosis Status: Chronic Plan/Intensity of Service Will continue Zosyn for antimicrobial coverage - ? leukocytosis secondary to malignancy. Start Duragesic patch 12mcg to skin every 3 days to help pain control. Continue current pain meds. Continue with IVF for NUNU and support. PT/OT eval in am to help functional status. Discussed with Dr Jimenes this am about pt - still planning port placement on 08/11 if pt wants to proceed with chemo. Midline placed today due to poor IV access. Discussed with daughter about care wishes - have been going back and forth about Chemo vs Hospice. Will see how pt does in the next 1-2 day to help determine which course is better. Recheck CMP in am due to NUNU and elevated liver enzymes. Repeat CBC in am due to leukocytosis. Case discussed with nursing and pt's daughter. Time spent with pt care 35 minutes. High risk medication involved - IV Dilaudid and lorazepam. DVT Prophylaxis: SCD'S Code Status Do Not Resuscitate Hospital Course Summary Disclaimer The hospital course summary below is not to be considered part of the above Progress Note. Hospital Course Summary 08/07 Full admit with the ARF with IVF, supportive care. CT with evidence of carcinomatosis and this woman will need an extended release narcotic plan with bowel regimen. No acute surgical issue on CT. prn surgery consult but will give Zosyn for ascites and leukocytosis for now. No sepsis evident though. 08/08 Continue IVF for NUNU and to help stimulate bowel function. Creatinine decreased to 2.1. Potassium decreased to 2.9 - replace potassium IV - not certain if pt will be able to tolerated Oral potassium. Check magnesium due to hypokalemia. Pain control - Prn Dilaudid, could try [place] prn (hold ibuprofen due to NUNU). Hold Lactulose due to pts ab symptoms with this medication-start Miralax BID with meals (prn bowel medications okay). Add Remeron 7.5mg at night to help stimulate bowel function. Monitor lab. SCD for DVT prevention. 08/09 Rough day. Pain and anxiety this morning. Dilaudid, lorazepam, and antiemetics helped. Ab pain about the same overall-still crampy/gassy. No appetite. Passing some flatus. Breathing stable. No chest pain. Very tired and weak in general. Will continue Zosyn for antimicrobial coverage - ? leukocytosis secondary to malignancy. Start Duragesic patch 12mcg to skin every 3 days to help pain control. Continue current pain meds. Continue with IVF for NUNU and support. PT/OT eval in am to help functional status. Discussed with Dr Jimenes this am about pt - still planning port placement on 08/11 if pt wants to proceed with chemo. Midline placed today due to poor IV access. Discussed with daughter about care wishes - have been going back and forth about Chemo vs Hospice. Will see how pt does in the next 1-2 day to help determine which course is better. Recheck CMP in am due to NUNU and elevated liver enzymes. Repeat CBC in am due to leukocytosis. CHRIS FOX MD Aug 09, 2016 14:32
--- NOTE | 2016-08-09 17:43 | NUR ---
SHIFT PT HAS BEEN PLEASANTLY CONFUSED ALL SHIFT. PT IS A&OX1 TO 2. PT REPORTS PAIN, PRN PAIN MEDS GIVEN, SEE eMAR. PT DENIES N/V AND SOA. PT IS ON ROOM AIR. PT HAS BEEN TURNED IN BED Q2H AND HAS SAT AT SIDE OF BED FOR MEALS. PT HAS SLEPT FOR A FEW HOURS POST MED ADMINISTRATION. DAUGHTER HAS BEEN AT BEDSIDE FOR VISITATION. PT HAS VERY LOW APPETITE, EATING BITES OF MEALS ONLY. NO BM THIS SHIFT. NO OTHER CHANGES SINCE PREVIOUS NOTE. ALARMS IN USE AND CALL LIGHT WITH IN REACH. PT NEEDS REMINDING OF CALL LIGHT.
[2016-08-09] MEDS: LORAZEPAM 0.5 MG TABLET PO PRN (20:34)
[2016-08-09] MEDS: MIRTAZAPINE 15 MG TABLET PO SCH (20:34)
[2016-08-10] VITALS (9 sets, daily range): BP systolic 142–158; BP diastolic 53–98; PULSE 65–80; RESP 14–20; TEMP 95.5–98.8; O2SAT 87–96
[2016-08-10] MEDS: PIPERACILLIN/TAZOBACTAM 2.25 G in NORMAL SALINE 100 ML IV SCH ×4 (02:48→23:00)
[2016-08-10 04:48] LABS: BASOPHILS % (AUTO) 0.3 % (0-2); EOSINOPHILS # (AUTO) 0.8 T/MM3 (0-0.5); HCT - HEMATOCRIT 30.4 % (36-46); HGB - HEMOGLOBIN 9.1 GM/DL (12-16); IMMATURE GRANULOCYTE # (AUTO) 0.01 T/MM3 (0.00-0.03); IMMATURE GRANULOCYTE % (AUTO) 0.1 % (0.0-0.5); LYMPHOCYTES # (AUTO) 0.8 T/MM3 (1-4.8); LYMPHOCYTES % (AUTO) 7.2 % (23-45); MEAN CORPUSCULAR HGB 22.5 UUG (26-34); MEAN CORPUSCULAR HGB CONC(MCHC 29.9 GM/DL (31-37); MEAN CORPUSCULAR VOLUME 75.1 UM3 (80-100); MEAN PLATELET VOLUME 10.1 UM3 (9.4-12.4); MONOCYTES % (AUTO) 8.3 % (0-9.0); NEUTROPHILS % (AUTO) 77.1 % (33-66); RED BLOOD COUNT 4.05 M/MM3 (4.00-5.20); WBC - WHITE BLOOD COUNT 11.6 T/MM3 (4.5-11.0)
[2016-08-10 04:54] LABS: ALBUMIN 2.4 G/DL (3.5-5.0); ALKALINE PHOSPHATASE 108 U/L (38-126); ALT (SGPT) 66 U/L (9-52); ANION GAP 11 MEQ/L (5-15); AST (SGOT) 51 U/L (14-36); BUN/CREATININE RATIO 21 RATIO (6-26); CALCIUM 7.9 MG/DL (8.4-10.2); CHLORIDE 108 MEQ/L (98-107); CO2 - CARBON DIOXIDE 22 MEQ/L (22-30); CREATININE 1.6 MG/DL (0.7-1.2); GLOMERULAR FILTRATION RATE 31; GLUCOSE 84 MG/DL (65-110); MAGNESIUM 2.3 MG/DL (1.6-2.3); POTASSIUM 3.6 MEQ/L (3.6-5); SODIUM 141 MEQ/L (134-144); TOTAL PROTEIN 4.7 G/DL (6.3-8.2)
--- NOTE | 2016-08-10 05:35 | NUR ---
Status Pt A/Ox2-3 during shift. Gave PRN Ativan and Dilaudid as charted. Pt stated a significant relief of pain with Dilaudid administration. Pt refused to turn at 2000, 2200, and 0000. Turned q2h following that. Pt stated she felt "loopy" this morning between 0300 and 0415. Pt spoke in uncharacteristic happy and carefree way during that time. Pt noted that the decision about hospice vs. chemo would be tricky to navigate with family. Stated desire to this RN to go on hospice and comfortably but noted that daughter may not feel the same. Bed alarm on. Call light within reach. Will continue to monitor.
[2016-08-10] MEDS: POLYETHYL.GLYCOL 3350 PACKET 17gm PO SCH ×2 (08:15→16:41)
[2016-08-10] MEDS: AMLODIPINE 5 MG TABLET PO SCH (08:15)
--- NOTE | 2016-08-10 08:51 | NUR ---
ABDOMINAL PAIN PT HAVING A LOT OF ABDOMINAL DISCOMFORT THIS AM, PRN MOM GIVEN AFTER DOSE OF [place]CO THIS AM. PT REPORTS FEELING CONSTIPATED. REFUSED TO WORK WITH PHYSICAL THERAPY AT THIS TIME. THEY WILL TRY BACK IN A LITTLE WHILE AFTER NORCO HAS A CHANCE TO WORK.
[2016-08-10] MEDS: LR 1,000 ML IV SCH (09:28)
[2016-08-10] MEDS: HYDROMORPHONE 2mg/ml INJECTION IV PRN ×2 (10:15→20:22)
[2016-08-10] MEDS: NS 500 ML IV PRN (10:21)
--- NOTE | 2016-08-10 10:48 | NUR ---
PAIN PT CONTINUES TO HAVE ABDOMINAL PAIN, OFFERED A SUPPOSITORY BUT PATIENT REFUSED, REQUESTED MORE PAIN MEDS, PRN DILAUDID GIVEN.
--- NOTE | 2016-08-10 11:34 | NUR ---
RENAL DOSING: Today's SCr = 1.6 mg/dl. Calculated CrCl = 22 ml/min. I changed the Pip/Tazo 2.25 g iv q8h to 2.25 g iv every 6 hours. The pharmacy will continue to review the renal function and adjust the medications accordingly per Pharmacy Renal Monitoring and Adjustment Program. Thanks, Pawan Sims Rph.
[2016-08-10] MEDS ORDERED: ZINC OXIDE 40% (Diaper Rash Oint) 56gm TUBE TOP ONE (13:15)
[2016-08-10] MEDS: DRONABINOL 2.5 MG CAPSULE PO SCH ×2 (13:16→20:41)
[2016-08-10] MEDS: 1/2 NS w/ KCL 20mEq 1,000 ML IV SCH (13:27)
--- NOTE | 2016-08-10 13:35 | PNPDOC ---
Subjective Date DATE: 08/10/16 TIME: 13:20 Subjective F/U: NUNU, Ab pain, N/V Ab pain waxes and wain. Dilaudid helps, but does feel sleepy afterwards. Notes confusion at times-hard to think clear. No appetite-nothing sounds appealing. Less nausea. Passing stool and flatus. Notes some anal itch and irritation from stools. Very weak-did work with therapy, but ab pain limited her abilities. Breathing able. Objective Vital Signs Vital signs Vital Signs Date Time Temp Pulse Resp B/P Pulse Ox O2 Delivery O2 Flow Rate FiO2 08/10/16 12:18 98.6 80 18 153/53 94 Nasal Cannula 1.00 Telemetry Rhythm: Sinus Rhythm Height (Feet): 5 Height (Inches): 0.00 Weight (Kilograms): 68.300 General General Appearance: Alert, Overweight, Well Nourished, Well Developed, Mild Distress, Looks Stated Age Eyes (Brief) Eyes: FOUND: EOMI, PERRL, NOT FOUND: scleral icterus ENMT (Brief) ENMT: FOUND: hearing intact, mucosa moist Neck (Brief) Neck: FOUND: midline, NOT FOUND: nuchal rigidity, spasm Respiratory (Brief) Respiratory: FOUND: equal bilaterally, other (No distress ), NOT FOUND: clear all singh (decreased ), rales, wheezes Cardiovascular (Brief) Cardiac: FOUND: regular rate, regular rhythm Abdomen (Brief) Abdominal: FOUND: BS normo active x4, distended (Ascities-stable from yesterday ), soft, tender (Mild diffuse ) (Brief) Female: FOUND: other (Rain in place ) Extremities (Brief) Extremity : Side: Bilateral Extremity: leg Extremity Finding: FOUND: edema (+1 ), other (scd) Musculoskeletal (Brief) Musculoskeletal: FOUND: extremities move equally, NOT FOUND: deformity, spasm Integumentary (Brief) Integumentary: FOUND: dry, warm Neurologic (Brief) Neurological: FOUND: cranial 2-12 intact, motor (Intact ) Psychiatric (Brief) Psychiatric: FOUND: alert, normal affect, other (Communicates well, appears weak and tired ) Laboratory Laboratory Laboratory Tests 08/09/16 04:49 08/10/16 04:14 Laboratory Tests 08/09/16 04:49 08/10/16 04:14 Microbiology Microbiology Microbiology Date/Time Source Procedure Growth Status 08/07/16 18:03 Peripheral/Iv Start Blood Culture - Preliminary NO GROWTH AFTER 48 HOURS Resulted 08/07/16 17:57 Peripheral/Iv Start Blood Culture - Preliminary NO GROWTH AFTER 48 HOURS Resulted Assessment & Plan Problems: (1) Acute renal failure Status: Acute Qualifiers: Acute renal failure type: unspecified Qualified Codes: N17.9 - Acute kidney failure, unspecified Assessment & Plan: POA: 3 fold increase of creatinine noted - 0.6 on 06/29, 2.3 at presentation. (2) Hypokalemia Status: Resolved Assessment & Plan: POA (3) Abdominal pain Status: Acute Qualifiers: Abdominal location: generalized Qualified Codes: R10.84 - Generalized abdominal pain Assessment & Plan: Suspect secondary to abdominal carcinomatosis (4) Abdominal carcinomatosis Status: Acute (5) Metastatic colon cancer in female Status: Acute (6) Elevated liver enzymes Status: Acute (7) Anorexia Status: Acute Assessment & Plan: Secondary to abdominal carcinomatosis. (8) CAD (coronary artery disease) Status: Chronic (9) HTN (hypertension) Status: Chronic Qualifiers: Hypertension type: essential hypertension Qualified Codes: I10 - Essential (primary) hypertension Assessment & Plan: only continue the amlodipine for now. (10) Dyslipidemia Status: Chronic Assessment & Plan: Statin on hold currently due to elevated liver enzymes. (11) Stage III chronic kidney disease Status: Chronic (12) Nocturnal hypoxemia Status: Chronic (13) Hard of hearing Status: Chronic Qualifiers: Hearing loss type: unspecified Laterality: bilateral Qualified Codes: H91.93 - Unspecified hearing loss, bilateral (14) Sigmoid diverticulosis Status: Chronic Plan/Intensity of Service Will continue Zosyn for antimicrobial coverage - ? leukocytosis secondary to malignancy. Start Duragesic patch 12mcg to skin every 3 days to help pain control. [place] 5 did nothing to help pain - will increase to 10. Watch for confusion. Change IVF to 1/2NS with 20mEq KCl at 75cc/hr. Add Marinol 5mg BID to Remeron 7.5mg at night to help stimulate appetite. Could advance diet to Regular as nausea decreasing. PT/OT eval in am to help functional status. Recheck CMP and Mg in am due to NUNU and elevated liver enzymes. Repeat CBC in am due to leukocytosis. Did discuss case with daughter - with pt's continued pain and little functional gain, they are leaning towards Hospice care. Daughter will be meeting with CM to discuss this in detail. Wondering about [facility] as they have inpatient care close to where daughter lives. Currently do not feel pt would be able to function well independently. Discussed with Dr Jimenes - will plan not to place port unless things change. Case discussed with PATI, Dr Jimenes, and pt's daughter. Time spent with pt care 35 minutes. High risk medication involved - IV Dilaudid and lorazepam. DVT Prophylaxis: SCD'S Code Status Do Not Resuscitate Hospital Course Summary Disclaimer The hospital course summary below is not to be considered part of the above Progress Note. Hospital Course Summary 08/07 Full admit with the ARF with IVF, supportive care. CT with evidence of carcinomatosis and this woman will need an extended release narcotic plan with bowel regimen. No acute surgical issue on CT. prn surgery consult but will give Zosyn for ascites and leukocytosis for now. No sepsis evident though. 08/08 Continue IVF for NUNU and to help stimulate bowel function. Creatinine decreased to 2.1. Potassium decreased to 2.9 - replace potassium IV - not certain if pt will be able to tolerated Oral potassium. Check magnesium due to hypokalemia. Pain control - Prn Dilaudid, could try [place] prn (hold ibuprofen due to NUNU). Hold Lactulose due to pts ab symptoms with this medication-start Miralax BID with meals (prn bowel medications okay). Add Remeron 7.5mg at night to help stimulate bowel function. Monitor lab. SCD for DVT prevention. 08/09 Rough day. Pain and anxiety this morning. Dilaudid, lorazepam, and antiemetics helped. Ab pain about the same overall-still crampy/gassy. No appetite. Passing some flatus. Breathing stable. No chest pain. Very tired and weak in general. Will continue Zosyn for antimicrobial coverage - ? leukocytosis secondary to malignancy. Start Duragesic patch 12mcg to skin every 3 days to help pain control. Continue current pain meds. Continue with IVF for NUNU and support. PT/OT eval in am to help functional status. Discussed with Dr Jimenes this am about pt - still planning port placement on 08/11 if pt wants to proceed with chemo. Midline placed today due to poor IV access. Discussed with daughter about care wishes - have been going back and forth about Chemo vs Hospice. Will see how pt does in the next 1-2 day to help determine which course is better. Recheck CMP and Mg in am due to NUNU and elevated liver enzymes. Repeat CBC in am due to leukocytosis. 5/1 Ab pain waxes and wain. Dilaudid helps, but does feel sleepy afterwards. Notes confusion at times-hard to think clear. No appetite-nothing sounds appealing. Less nausea. Passing stool and flatus. Notes some anal itch and irritation from stools. Very weak-did work with therapy, but ab pain limited her abilities. Breathing able. Creatinine decreased to 1.6. Potassium 3.6. LFT with decrease from yesterday. WBC decreased to 11.6 Will continue Zosyn for antimicrobial coverage - ? leukocytosis secondary to malignancy. Start Duragesic patch 12mcg to skin every 3 days to help pain control. [place] 5 did nothing to help pain - will increase to 10. Watch for confusion. Change IVF to 1/2NS with 20mEq KCl at 75cc/hr. Add Marinol 5mg BID to Remeron 7.5mg at night to help stimulate appetite. Could advance diet to Regular as nausea decreasing. PT/OT eval in am to help functional status. Recheck CMP and Mg in am due to NUNU and elevated liver enzymes. Repeat CBC in am due to leukocytosis. Did discuss case with daughter - with pt's continued pain and little functional gain, they are leaning towards Hospice care. Daughter will be meeting with CM to discuss this in detail. Wondering about [facility] as they have inpatient care close to where daughter lives. Currently do not feel pt would be able to function well independently. Discussed with Dr Jimenes - will plan not to place port unless things change. CHRIS FOX MD August 10, 2016 13:25
--- NOTE | 2016-08-10 14:31 | NUR ---
CM CM IN TO VISIT WITH PT AND FAMILY. CM EXPLAINED ROLE AND PROVIDED CONTACT INFORMATION. FAMILY IS GOING TO TALK WITH PATIENT AND DECIDE IF SHE WANTS CHEMO OR NOT AND LET THIS CM KNOW. PT AND FAMILY AWARE TO CALL CM SHOULD NEEDS ARISE.
--- NOTE | 2016-08-10 14:59 | NUR ---
STOOL PT HAD ANOTHER LIQUID BM, SAMPLE SENT TO LAB. PT UP TO THE CHAIR NOW WITH SCD'S ON.
[2016-08-10] MEDS ORDERED: TRIAMCINOLONE 40mg/ml INJECTION 1ml VIAL INJ ONE (15:45)
[2016-08-10] MEDS ORDERED: LIDOCAINE 1%/EPI 1:100,000 20ml MDV SQ ONE (15:45)
--- NOTE | 2016-08-10 16:16 | CONSPD ---
Consultation Info Date DATE: 08/10/16 TIME: 15:59 Attending Physician Kelsey Walton MD Reason for Consultation: Right shoulder pain. Impression/Recommendation Impression/Recommendation: (1) Shoulder pain, right Status: Acute Qualifiers: Chronicity: chronic Qualified Codes: G89.29 - Other chronic pain; M25.511 - Pain in right shoulder Recommendation: Alexi had a rotator cuff surgery 10-15 yrs ago and had xrays of the shoulder in April 2016. She has done well with injections in the past and would like to repeat an injection today. I will inject 80mg of Kenalog into the subacromial space. May use heat or topical ointments prn. Follow up PRN. Ortho HPI HPI Elements Location: FOUND shoulder (right) Injury: No (Increased demand on the shoulder to get out of a chair / bed with recent admission / illness.) Pain: FOUND sharp, FOUND ache Onset: Gradual Radiating: No Severity: FOUND moderate Duration: FOUND several days Previous Surgery: Yes (Rotator cuff surgery 10-15 yrs ago.) Previous Injury: No Aggrevated by: FOUND pushing, FOUND pulling, FOUND getting out of a chair, FOUND lifting, FOUND overhead use Associated Symptoms: FOUND weakness, NOT FOUND fever, NOT FOUND warmth, NOT FOUND numbness Treatments Tried: FOUND cold/heat therapy, FOUND rest X-ray Findings: FOUND other (Xrays for April 2016 show post surgical changes from rotator cuff dz. No acute fx.) Recommendation: FOUND other (I will inject the shoulder to give her some relief. Continue with conservative tx.) Review of Systems Constitutional: DENIES: fever Cardiovascular DENIES: chest pain Pulmonary Respiratory: DENIES: cough GI Upper Abdomen: abdominal swelling, nausea, pain General: DENIES: dysuria Musculoskeletal General: see HPI Integumentary Skin: DENIES: infections, lesion Neurological General: DENIES: numbness, tingling Psychiatric Psychiatric: memory impairment Hematologic/Lymphatic DENIES: easy bruising Allergic/Immunological DENIES: frequent infections Past Medical History Adult Past Medical History Patient History: (1) CAD (coronary artery disease) (2) HTN (hypertension) (3) Dyslipidemia (4) Metastatic colon cancer in female Problem List Updates Severe hard of hearing Surgical History Patient's Surgical History: colonic resection this month with prior port in place Right shoulder rotator cuff surgery 10+ yrs ago. Current Medications Acetaminophen (Acetaminophen) 500 Mg Tablet, 1,000 MG PO Q8H PRN for PAIN, ( Reported) Last Taken: Unknown Dose on Unknown Date & Time Amlodipine Besylate ( Amlodipine Besylate) 5 Mg Tablet, 5 MG PO DAILY, (Reported) Last Taken: Unknown Dose on 08/07/16 0800 Diphenhydramine HCl (Benadryl) 25 Mg Capsule, 25 MG PO Q4HR PRN for ALLERY SYMPTOMS, (Reported) Last Taken: Unknown Dose on Unknown Date & Time Hydralazine HCl ( Hydralazine HCl) 50 Mg Tablet, 50 MG PO BIDWM, (Reported) Last Taken: Unknown Dose on 08/07/16 0800 Ibuprofen (Ibuprofen) 200 Mg Tablet , 400 MG PO Q4H PRN for PAIN, (Reported) Last Taken: Unknown Dose on 08/07/16 1000 Lactulose (Generlac) 10 Gm/15 Ml Solution, 30 ML PO Q8H PRN for PRN ORDERS, (Reported) Last Taken: Unknown Dose on 08/07/16 0530 Lorazepam (Lorazepam) 0.5 Mg Tablet , 0.5 MG PO TID PRN for ANXIETY, (Reported) Last Taken: Unknown Dose on 08/07/16 1500 Niacin (Niacin) 100 Mg Tablet, 100 MG PO PRN, (Reported) Last Taken: 200 mg on 08/06/16 2000 Ondansetron (Ondansetron Odt) 8 Mg Tab.rapdis, 4 MG PO Q6H PRN for NAUSEA, (Reported) Last Taken: Unknown Dose on Unknown Date & Time Simvastatin (Simvastatin) 20 Mg Tablet, 20 MG PO HS, (Reported) Last Taken: Unknown Dose on 08/06/161999 Triamterene/Hydrochlorothiazid ( Triamterene-Hctz 37.5-25 mg Cp) 1 Each Capsule, 1 CAP PO DAILY, (Reported) Last Taken: Unknown Dose on 08/07/16 0800 Allergies Allergies: Coded Allergies: codeine (Unverified Adverse Reaction, Unknown, UPSET STOMACH, 08/07/16) Family History Family History: parents not with cancer Vaccines 01/2016 YES 2013 2013 Social History Smoking Status: Never smoker Does patient use chewing tobac: No # of Packs/Tins per Day: 1 # of Years: 34 Second Hand Exposure: No Substance Use Type: does not use Alcohol Intake: none Last Drink: unknown Advance Directives: Yes DPOA for Healthcare Only (Becki Tripathi, daughter) Physical Exam General General: well nourished, well developed, no acute distress Respiratory FOUND wheezes Cardiovascular FOUND other (Radial pulse intact.) Capillary Refill: <2 sec Musculoskeletal Comments Right shoulder has atrophy of the musculature. Fairly good ROM but is weak with testing. Mild tenderness around the acromion. No erythema or warmth of the joint. Scar from previous surgery noted. Integumentary FOUND dry, FOUND pink, FOUND warm Neurologic FOUND intact to light touch, FOUND no deficits Psychiatric FOUND alert Laboratory Laboratory Tests Test 08/10/16 04:14 08/10/16 14:48 White Blood Count 11.6T/MM3 Red Blood Count 4.05M/MM3 Hemoglobin 9.1GM/DL Hematocrit 30.4% Mean Corpuscular Volume 75.1UM3 Mean Corpuscular Hemoglobin 22.5UUG Mean Corpuscular Hemoglobin Concent 29.9GM/DL RDW Standard Deviation 44.5FL Platelet Count 349T/MM3 Mean Platelet Volume 10.1UM3 Immature Granulocyte % (Auto) 0.1% Neutrophils (%) (Auto) 77.1% Lymphocytes (%) (Auto) 7.2% Monocytes (%) (Auto) 8.3% Eosinophils (%) (Auto) 7.0% Basophils (%) (Auto) 0.3% Absolute Immature Granulocyte (auto 0.01T/MM3 Absolute Neutrophils (auto) 9.0T/MM3 Absolute Lymphocytes (auto) 0.8T/MM3 Absolute Monocytes (auto) 1.0T/MM3 Absolute Eosinophils (auto) 0.8T/MM3 Absolute Basophils (auto) 0.0T/MM3 Turbidity < 20 Sodium Level 141MEQ/L Potassium Level 3.6MEQ/L Chloride Level 108MEQ/L Carbon Dioxide Level 22MEQ/L Anion Gap 11MEQ/L Blood Urea Nitrogen 34.0MG/DL Creatinine 1.6MG/DL Glomerular Filtration Rate Calc 31 BUN/Creatinine Ratio 21RATIO Glucose Level 84MG/DL Calculated Osmolality 278MOSM/KG Calcium Level 7.9MG/DL Magnesium Level 2.3MG/DL Total Bilirubin 0.80MG/DL Icterus Index < 2 Aspartate Amino Transf (AST/SGOT) 51U/L Alanine Aminotransferase (ALT/SGPT) 66U/L Alkaline Phosphatase 108U/L Total Protein 4.7G/DL Albumin 2.4G/DL Globulin 2.3G/DL Albumin/Globulin Ratio 1.0RATIO Chemistry Specimen Hemolysis < 15 Stool C. difficile Toxin B Gene PCR Pending Radiology Radiology Right shoulder xray from April 2016 reviewed. PING BUCHANAN August 10, 2016 16:08
[2016-08-10 16:26] LABS: C. DIFFICILE TOXIN B NEGATIVE (NEGATIVE)
--- NOTE | 2016-08-10 16:39 | NUR ---
PATI KRUEGER TALKED WITH PT AND FAMILY. PT REPORTS SHE DOES NOT WANT TO TAKE CHEMOTHERAPY AND HAS REQUESTED A HOSPICE CONSULT. DR FOX AWARE OF CONSULT AND [facility] WAS CHOS[facility]. PATI PLACED CALL TO [facility] AND INFORMATION WAS FAXED. AT PT AND FAMILIES REQUEST [facility] TO VISIT ON 08/11/2016 AT 1530.
--- NOTE | 2016-08-10 18:37 | NUR ---
STATUS PT HAS HAD SEVERAL INCONTINENT LIQUID STOOLS TODAY. PT IS A&O TO PERSON, PLACE, TIME, HOWEVER HAS SOME CONFUSION. OCCASIONALLY SEES THINGS THAT ARE NOT THERE IN HER ROOM WELL. PT UP TO THE RECLINER FOR THE AFTERNOON. REFUSED TO GET OUT OF BED THIS AM EXCEPT TO WORK WITH PHYSICAL THERAPY THIS AM. PRN'S GIVEN NEEDED FOR ABDOMINAL PAIN. DID HAVE TO PUT PT ON 2L/NC DUE TO HER O2 DECREASING TO THE 80'S. BED AND CHAIR ALARMS IN USE.
[2016-08-10] MEDS: MIRTAZAPINE 15 MG TABLET PO SCH (20:41)
[2016-08-10] MEDS: ZINC OXIDE 20% TOP PRN (23:12)
--- NOTE | 2016-08-10 23:29 | NUR ---
output this rn reported pts low urine output of 100ml/9hrs. pt with previously low output. pt and family to meet with hospice tomorrow per report. said to just watch output for now. will continue to monitor.
[2016-08-11] VITALS (7 sets, daily range): BP systolic 152–177; BP diastolic 57–80; PULSE 59–77; RESP 14–18; TEMP 97.1–98.1; O2SAT 92–94
--- NOTE | 2016-08-11 00:30 | NUR ---
Chart Check 24 hour chart check completed
[2016-08-11] MEDS: 1/2 NS w/ KCL 20mEq 1,000 ML IV SCH ×2 (02:11→17:13)
[2016-08-11] MEDS: PIPERACILLIN/TAZOBACTAM 2.25 G in NORMAL SALINE 100 ML IV SCH ×4 (04:06→23:40)
[2016-08-11] MEDS: ZINC OXIDE 20% TOP PRN (04:26)
[2016-08-11 05:20] LABS: BASOPHILS % (AUTO) 0.2 % (0-2); EOSINOPHILS # (AUTO) 0.7 T/MM3 (0-0.5); EOSINOPHILS % (AUTO) 4.8 % (0-4); HGB - HEMOGLOBIN 9.1 GM/DL (12-16); IMMATURE GRANULOCYTE # (AUTO) 0.05 T/MM3 (0.00-0.03); IMMATURE GRANULOCYTE % (AUTO) 0.4 % (0.0-0.5); LYMPHOCYTES # (AUTO) 0.7 T/MM3 (1-4.8); LYMPHOCYTES % (AUTO) 5.3 % (23-45); MEAN CORPUSCULAR HGB CONC(MCHC 29.4 GM/DL (31-37); MEAN CORPUSCULAR VOLUME 74.9 UM3 (80-100); MEAN PLATELET VOLUME 10.2 UM3 (9.4-12.4); MONOCYTES # (AUTO) 0.9 T/MM3 (0-0.8); MONOCYTES % (AUTO) 6.8 % (0-9.0); NEUTROPHILS #(AUTO)-ABSOLUTE 11.3 T/MM3 (1.8-7.7); NEUTROPHILS % (AUTO) 82.5 % (33-66); RED BLOOD COUNT 4.14 M/MM3 (4.00-5.20); WBC - WHITE BLOOD COUNT 13.6 T/MM3 (4.5-11.0)
[2016-08-11 05:26] LABS: ALBUMIN 2.4 G/DL (3.5-5.0); ALKALINE PHOSPHATASE 88 U/L (38-126); ALT (SGPT) 45 U/L (9-52); ANION GAP 10 MEQ/L (5-15); AST (SGOT) 27 U/L (14-36); BUN/CREATININE RATIO 21 RATIO (6-26); CALCIUM 7.9 MG/DL (8.4-10.2); CHLORIDE 107 MEQ/L (98-107); CO2 - CARBON DIOXIDE 24 MEQ/L (22-30); CREATININE 1.6 MG/DL (0.7-1.2); GLOMERULAR FILTRATION RATE 31; GLUCOSE 96 MG/DL (65-110); MAGNESIUM 2.4 MG/DL (1.6-2.3); SODIUM 141 MEQ/L (134-144); TOTAL PROTEIN 4.9 G/DL (6.3-8.2)
--- NOTE | 2016-08-11 05:58 | NUR ---
SHIFT SUMMARY PT ALERT AND ORIENTED X 3, BUT CONFUSED AT TIMES. PT WILL SAY NONSENSE THINGS WHILE PERFORMING CARES, THEN STATES "OH DON'T LISTEN TO ME, I DON'T KNOW WHAT I'M TALKING ABOUT". PT TALKING TO SELF AT TIMES. PT GIVEN DILAUDID AND NORCO FOR PAIN, SEE EMAR FOR TIMES. DENIES N/V/SOA. PT ON 2L O2 VIA NC, USUALLY WEARS 1L O2 AT HOME. VSS OTHERWISE. 1/2NS + 20KCL RUNNING @ 75ML/HR IN LEFT UPPER MIDLINE, FLUSHES AND ASPIRATES WELL. IVL IN LEFT FOREARM. BILAT SCD'S. PT INCONTINENT OF LOOSE STOOL EVERY TURN Q2H. BED LOCKED AND LOW, BED ALARM ON. CALL LIGHT WITHIN REACH. WILL CONTINUE TO MONITOR.
[2016-08-11] MEDS: POLYETHYL.GLYCOL 3350 PACKET 17gm PO SCH ×2 (08:00→16:24)
[2016-08-11] MEDS: AMLODIPINE 5 MG TABLET PO SCH (08:14)
[2016-08-11] MEDS: DRONABINOL 2.5 MG CAPSULE PO SCH ×2 (08:15→20:21)
[2016-08-11] MEDS: HYDROMORPHONE 2mg/ml INJECTION IV PRN ×4 (08:17→22:49)
--- NOTE | 2016-08-11 13:00 | NUR ---
PATI KRUEGER SPOKE WITH CHANO AT [facility] FAX SENT SECOND TIME FOR [facility] CONSULT. CHANO TO SEND NURSE FOR INTAKE TODAY AT 330.
--- NOTE | 2016-08-11 13:24 | PROCEDUREF ---
DATE: 08/11/16 PROCEDURE: Right shoulder injection 08/11/16. DESCRIPTION OF PROCEDURE After appropriate verbal consent was obtained, the right shoulder was prepped with chlorhexidine. Then from an anterior approach, a 22-gauge needle was used to access the subacromial space. Approximately 4 cc of 1% Xylocaine was infiltrated into the subacromial space followed by 2 cc of Kenalog, totaling 80 mg. Following the procedure, the needle was removed. The area was cleansed with chlorhexidine and a sterile Band-Aid was applied. The patient tolerated the procedure well. There were no complications. BEATRIZ
--- NOTE | 2016-08-11 17:40 | PNPDOC ---
Subjective Date DATE: 08/11/16 TIME: 17:28 Subjective F/U: NUNU, Ab pain, N/V Had rough morning-pain and anxiety (thought she was going to ). Oral drive variable, but did find some food that were appealing. Nausea and pain vary. Still very weak and tired. Breathing stable, but needing O2 during the day. Objective Vital Signs Vital signs Vital Signs Date Time Temp Pulse Resp B/P Pulse Ox O2 Delivery O2 Flow Rate FiO2 08/11/16 15:59 97.9 76 14 160/70 92 Nasal Cannula 2.00 Telemetry Rhythm: Sinus Rhythm Height (Feet): 5 Height (Inches): 0.00 Weight (Kilograms): 68.300 General General Appearance: Alert, Overweight, Well Nourished, Well Developed, Cooperative, Mild Distress, Looks Stated Age Eyes (Brief) Eyes: FOUND: EOMI, PERRL, NOT FOUND: scleral icterus ENMT (Brief) ENMT: FOUND: hearing intact ([place]), mucosa moist Neck (Brief) Neck: FOUND: midline, NOT FOUND: nuchal rigidity, spasm Respiratory (Brief) Respiratory: FOUND: equal bilaterally, NOT FOUND: clear all singh (decreased ) , rales, wheezes Cardiovascular (Brief) Cardiac: FOUND: pedal edema (+2 ), regular rate, regular rhythm Abdomen (Brief) Abdominal: FOUND: distended (Ascities), soft, NOT FOUND: BS normo active x4 ( Decreased ) Extremities (Brief) Extremity : Side: Bilateral Extremity: leg Extremity Finding: FOUND: edema (+2 ) Musculoskeletal (Brief) Musculoskeletal: NOT FOUND: deformity, spasm Integumentary (Brief) Integumentary: FOUND: dry, warm Neurologic (Brief) Neurological: FOUND: cranial 2-12 intact, motor (Intact ) Psychiatric (Brief) Psychiatric: FOUND: alert, attentive, normal affect, other (Appears tired and weak ) Laboratory Laboratory Laboratory Tests 08/10/16 04:14 08/11/16 04:19 Laboratory Tests 08/10/16 04:14 08/11/16 04:19 Assessment & Plan Problems: (1) Acute renal failure Status: Acute Qualifiers: Acute renal failure type: unspecified Qualified Codes: N17.9 - Acute kidney failure, unspecified Assessment & Plan: POA: 3 fold increase of creatinine noted - 0.6 on 06/29, 2.3 at presentation. (2) Hypokalemia Status: Resolved Assessment & Plan: POA (3) Abdominal pain Status: Acute Qualifiers: Abdominal location: generalized Qualified Codes: R10.84 - Generalized abdominal pain Assessment & Plan: Suspect secondary to abdominal carcinomatosis (4) Abdominal carcinomatosis Status: Acute (5) Metastatic colon cancer in female Status: Acute (6) Elevated liver enzymes Status: Acute (7) Anorexia Status: Acute Assessment & Plan: Secondary to abdominal carcinomatosis. (8) CAD (coronary artery disease) Status: Chronic (9) HTN (hypertension) Status: Chronic Qualifiers: Hypertension type: essential hypertension Qualified Codes: I10 - Essential (primary) hypertension Assessment & Plan: only continue the amlodipine for now. (10) Dyslipidemia Status: Chronic Assessment & Plan: Statin on hold currently due to elevated liver enzymes. (11) Stage III chronic kidney disease Status: Chronic (12) Nocturnal hypoxemia Status: Chronic (13) Hard of hearing Status: Chronic Qualifiers: Hearing loss type: unspecified Laterality: bilateral Qualified Codes: H91.93 - Unspecified hearing loss, bilateral (14) Sigmoid diverticulosis Status: Chronic Plan/Intensity of Service Will continue Zosyn for antimicrobial coverage Continue IVF for support Continue Marinol and Remeron 7.5mg to help stimulate appetite. Encourage diet as able. Pt and Family met with [facility] - considering hospice care. Recheck CMP and Mg in am due to NUNU and elevated liver enzymes. Repeat CBC in am due to leukocytosis. Case discussed with CM and pt's daughter. Time spent with pt care 35 minutes. High risk medication involved - IV Dilaudid and lorazepam. DVT Prophylaxis: SCD'S Code Status Do Not Resuscitate Hospital Course Summary Disclaimer The hospital course summary below is not to be considered part of the above Progress Note. Hospital Course Summary 08/07 Full admit with the ARF with IVF, supportive care. CT with evidence of carcinomatosis and this woman will need an extended release narcotic plan with bowel regimen. No acute surgical issue on CT. prn surgery consult but will give Zosyn for ascites and leukocytosis for now. No sepsis evident though. 08/08 Continue IVF for NUNU and to help stimulate bowel function. Creatinine decreased to 2.1. Potassium decreased to 2.9 - replace potassium IV - not certain if pt will be able to tolerated Oral potassium. Check magnesium due to hypokalemia. Pain control - Prn Dilaudid, could try [place] prn (hold ibuprofen due to NUNU). Hold Lactulose due to pts ab symptoms with this medication-start Miralax BID with meals (prn bowel medications okay). Add Remeron 7.5mg at night to help stimulate bowel function. Monitor lab. SCD for DVT prevention. 08/09 Rough day. Pain and anxiety this morning. Dilaudid, lorazepam, and antiemetics helped. Ab pain about the same overall-still crampy/gassy. No appetite. Passing some flatus. Breathing stable. No chest pain. Very tired and weak in general. Will continue Zosyn for antimicrobial coverage - ? leukocytosis secondary to malignancy. Start Duragesic patch 12mcg to skin every 3 days to help pain control. Continue current pain meds. Continue with IVF for NUNU and support. PT/OT eval in am to help functional status. Discussed with Dr Jimenes this am about pt - still planning port placement on 08/11 if pt wants to proceed with chemo. Midline placed today due to poor IV access. Discussed with daughter about care wishes - have been going back and forth about Chemo vs Hospice. Will see how pt does in the next 1-2 day to help determine which course is better. Recheck CMP and Mg in am due to NUNU and elevated liver enzymes. Repeat CBC in am due to leukocytosis. 08/10 Ab pain waxes and wain. Dilaudid helps, but does feel sleepy afterwards. Notes confusion at times-hard to think clear. No appetite-nothing sounds appealing. Less nausea. Passing stool and flatus. Notes some anal itch and irritation from stools. Very weak-did work with therapy, but ab pain limited her abilities. Breathing able. Creatinine decreased to 1.6. Potassium 3.6. LFT with decrease from yesterday. WBC decreased to 11.6 Will continue Zosyn for antimicrobial coverage - ? leukocytosis secondary to malignancy. Start Duragesic patch 12mcg to skin every 3 days to help pain control. [place] 5 did nothing to help pain - will increase to 10. Watch for confusion. Change IVF to 1/2NS with 20mEq KCl at 75cc/hr. Add Marinol 5mg BID to Remeron 7.5mg at night to help stimulate appetite. Could advance diet to Regular as nausea decreasing. PT/OT eval in am to help functional status. Recheck CMP and Mg in am due to NUNU and elevated liver enzymes. Repeat CBC in am due to leukocytosis. Did discuss case with daughter - with pt's continued pain and little functional gain, they are leaning towards Hospice care. Daughter will be meeting with CM to discuss this in detail. Wondering about [facility] as they have inpatient care close to where daughter lives. Currently do not feel pt would be able to function well independently. Discussed with Dr Jimenes - will plan not to place port unless things change. 5/2 Had rough morning-pain and anxiety (thought she was going to ). Oral drive variable, but did find some food that were appealing. Nausea and pain vary. Still very weak and tired. Breathing stable, but needing O2 during the day. Will continue Zosyn for antimicrobial coverage Continue IVF for support Continue Marinol and Remeron 7.5mg to help stimulate appetite. Encourage diet as able. Pt and Family met with [facility] - considering hospice care. Recheck CMP and Mg in am due to NUNU and elevated liver enzymes. Repeat CBC in am due to leukocytosis. CHRIS FOX MD August 11, 2016 17:32
--- NOTE | 2016-08-11 19:20 | NUR ---
CHARTING REVIEWED THIS RN REVIEWED STUDENT JIMMY ANNE'S CHARTING ON 08/11.
--- NOTE | 2016-08-11 19:28 | NUR ---
Shift summary. VSS, but BP hypertensive. O2 at 2L. Patient gets up with 1-2. Up to chair for breakfast. Midline in left upper arm. Left forearm IV locked. Frequent loose stools in afternoon and early evening. Urine output averaged 185 cc in last [address] Richards aware. [facility] consulted, and patient planned to discharge tomorrow to hospice. A&O x 3 at times, but also frequently confused and talks to self in room. Turn Q2.
[2016-08-11] MEDS: MIRTAZAPINE 15 MG TABLET PO SCH (20:20)
[2016-08-12] VITALS (7 sets, daily range): BP systolic 147–175; BP diastolic 69–82; PULSE 77–93; RESP 16–20; TEMP 97–98.4; O2SAT 92–94
[2016-08-12] MEDS: HYDROMORPHONE 2mg/ml INJECTION IV PRN ×2 (02:34→15:30)
[2016-08-12] MEDS: PIPERACILLIN/TAZOBACTAM 2.25 G in NORMAL SALINE 100 ML IV SCH ×2 (04:16→10:04)
--- NOTE | 2016-08-12 04:54 | NUR ---
A&O TO PERSON AND PLACE, SOME MILD CONFUSION NOTED. REPORTED PAIN MULTIPLE TIMES DURING SHIFT. NORCO AND DILAUDID GIVEN ORDERED. PT HAS HAD LOOSE STOOLS WITH EVERY TURN. MIDLINE IN THE UPPER LT ARM RUNNING .45% NS 20 KCL RUNNING AT 75 ML/HR. MIDLINE FLUSHES AND ASPIRATES. STARKEY CATHETER WITH VERY LITTLE OUTPUT FOR THE NIGHT. ABD IS DISTENDED AND RIGID, TENDER TO THE TOUCH.
[2016-08-12 05:15] LABS: HCT - HEMATOCRIT 34.1 % (36-46); HGB - HEMOGLOBIN 10.3 GM/DL (12-16); MEAN CORPUSCULAR HGB 22.7 UUG (26-34); MEAN CORPUSCULAR HGB CONC(MCHC 30.2 GM/DL (31-37); MEAN CORPUSCULAR VOLUME 75.3 UM3 (80-100); MEAN PLATELET VOLUME 10.2 UM3 (9.4-12.4); RED BLOOD COUNT 4.53 M/MM3 (4.00-5.20); WBC - WHITE BLOOD COUNT 18.8 T/MM3 (4.5-11.0)
[2016-08-12 05:39] LABS: ALBUMIN 2.8 G/DL (3.5-5.0); ALKALINE PHOSPHATASE 75 U/L (38-126); ALT (SGPT) 42 U/L (9-52); ANION GAP 12 MEQ/L (5-15); AST (SGOT) 49 U/L (14-36); BUN/CREATININE RATIO 24 RATIO (6-26); CALCIUM 8.1 MG/DL (8.4-10.2); CHLORIDE 106 MEQ/L (98-107); CO2 - CARBON DIOXIDE 20 MEQ/L (22-30); CREATININE 1.6 MG/DL (0.7-1.2); GLOMERULAR FILTRATION RATE 31; GLUCOSE 89 MG/DL (65-110); MAGNESIUM 2.5 MG/DL (1.6-2.3); POTASSIUM 5.8 MEQ/L (3.6-5); SODIUM 138 MEQ/L (134-144); TOTAL PROTEIN 5.7 G/DL (6.3-8.2)
[2016-08-12] MEDS: POLYETHYL.GLYCOL 3350 PACKET 17gm PO SCH (06:34)
[2016-08-12 06:58] LABS: EOSINOPHILS # (MANUAL) 0.6 T/MM3 (0-0.5); LYMPHOCYTES # (MANUAL) 0.4 T/MM3 (1-4.8); MONOCYTES # (MANUAL) 0.9 T/MM3 (0-0.8); NEUTROPHILS #(MANUAL)-ABSOLUTE 16.9 T/MM3 (1.8-7.7); POIKILOCYTOSIS 1+; TOTAL CELLS COUNTED 100 %
[2016-08-12 06:59] LABS: OVALOCYTES 1+
[2016-08-12] MEDS: ONDANSETRON 4mg/2ml INJECTION IV PRN (08:00)
[2016-08-12] MEDS ORDERED: FENTANYL PATCH REMOVAL TD SCH (09:00)
[2016-08-12] MEDS: DRONABINOL 2.5 MG CAPSULE PO SCH (09:24)
[2016-08-12] MEDS: AMLODIPINE 5 MG TABLET PO SCH (09:24)
[2016-08-12] MEDS: FENTANYL 12MCG/HR PATCH TD SCH (09:26)
[2016-08-12] MEDS: SIMETHICONE 125 MG CAPSULE PO PRN (10:03)
[2016-08-12] MEDS: LORAZEPAM 0.5 MG TABLET PO PRN (10:04)
--- NOTE | 2016-08-12 10:27 | PNPDOC ---
Subjective Date DATE: 08/12/16 TIME: 10:21 Subjective F/U: NUNU, Ab pain, N/V Nausea with emesis this am. Appetite still very decreased. Ab pain varies-does feel more full and bloated to abdomen. Breathing stable. Strength decreased. [facility] does recommend inpatient hospice care-pt and family in agreement. Objective Vital Signs Vital signs Vital Signs Date Time Temp Pulse Resp B/P Pulse Ox O2 Delivery O2 Flow Rate FiO2 08/12/16 07:22 97.5 77 18 159/77 94 Nasal Cannula 2.00 Telemetry Rhythm: Sinus Rhythm Height (Feet): 5 Height (Inches): 0.00 Weight (Kilograms): 68.300 General General Appearance: Alert, Overweight, Well Nourished, Well Developed, Mild Distress, Looks Stated Age Eyes (Brief) Eyes: FOUND: EOMI, PERRL, NOT FOUND: scleral icterus ENMT (Brief) ENMT: FOUND: hearing intact ([place]), mucosa moist Neck (Brief) Neck: FOUND: midline, NOT FOUND: nuchal rigidity, spasm Respiratory (Brief) Respiratory: FOUND: clear all singh, equal bilaterally, NOT FOUND: rales, wheezes Cardiovascular (Brief) Cardiac: FOUND: regular rate, regular rhythm Abdomen (Brief) Abdominal: FOUND: distended (acitities ), soft, tender (Mild, diffuse ), NOT FOUND: BS normo active x4 (Decreaed ) Extremities (Brief) Extremity : Side: Bilateral Extremity: leg Extremity Finding: FOUND: edema (+1 ) Musculoskeletal (Brief) Musculoskeletal: NOT FOUND: deformity, spasm Integumentary (Brief) Integumentary: FOUND: dry, warm Neurologic (Brief) Neurological: FOUND: cranial 2-12 intact, motor (Intact ) Psychiatric (Brief) Psychiatric: FOUND: alert, normal affect Laboratory Laboratory Laboratory Tests 08/11/16 04:19 08/12/16 04:10 Laboratory Tests 08/11/16 04:19 08/12/16 04:10 Assessment & Plan Problems: (1) Acute renal failure Status: Acute Qualifiers: Acute renal failure type: unspecified Qualified Codes: N17.9 - Acute kidney failure, unspecified Assessment & Plan: POA: 3 fold increase of creatinine noted - 0.6 on 06/29, 2.3 at presentation. (2) Hypokalemia Status: Resolved Assessment & Plan: POA (3) Abdominal pain Status: Acute Qualifiers: Abdominal location: generalized Qualified Codes: R10.84 - Generalized abdominal pain Assessment & Plan: Suspect secondary to abdominal carcinomatosis (4) Abdominal carcinomatosis Status: Acute (5) Metastatic colon cancer in female Status: Acute (6) Elevated liver enzymes Status: Acute (7) Anorexia Status: Acute Assessment & Plan: Secondary to abdominal carcinomatosis. (8) CAD (coronary artery disease) Status: Chronic (9) HTN (hypertension) Status: Chronic Qualifiers: Hypertension type: essential hypertension Qualified Codes: I10 - Essential (primary) hypertension Assessment & Plan: only continue the amlodipine for now. (10) Dyslipidemia Status: Chronic Assessment & Plan: Statin on hold currently due to elevated liver enzymes. (11) Stage III chronic kidney disease Status: Chronic (12) Nocturnal hypoxemia Status: Chronic (13) Hard of hearing Status: Chronic Qualifiers: Hearing loss type: unspecified Laterality: bilateral Qualified Codes: H91.93 - Unspecified hearing loss, bilateral (14) Sigmoid diverticulosis Status: Chronic Plan/Intensity of Service Will discharge to inpatient hospice care with [facility]. D/C IVF. Continue pain and symptom control as per hospice. Pt to transport to inpatient hospice via private vehicle. See orders for details Case discussed with CM. Time spent with pt care and discharge greater than 35 minutes. DVT Prophylaxis: SCD'S Code Status Do Not Resuscitate Hospital Course Summary Disclaimer The hospital course summary below is not to be considered part of the above Progress Note. Hospital Course Summary 08/07 Full admit with the ARF with IVF, supportive care. CT with evidence of carcinomatosis and this woman will need an extended release narcotic plan with bowel regimen. No acute surgical issue on CT. prn surgery consult but will give Zosyn for ascites and leukocytosis for now. No sepsis evident though. 08/08 Continue IVF for NUNU and to help stimulate bowel function. Creatinine decreased to 2.1. Potassium decreased to 2.9 - replace potassium IV - not certain if pt will be able to tolerated Oral potassium. Check magnesium due to hypokalemia. Pain control - Prn Dilaudid, could try [place] prn (hold ibuprofen due to NUNU). Hold Lactulose due to pts ab symptoms with this medication-start Miralax BID with meals (prn bowel medications okay). Add Remeron 7.5mg at night to help stimulate bowel function. Monitor lab. SCD for DVT prevention. 08/09 Rough day. Pain and anxiety this morning. Dilaudid, lorazepam, and antiemetics helped. Ab pain about the same overall-still crampy/gassy. No appetite. Passing some flatus. Breathing stable. No chest pain. Very tired and weak in general. Will continue Zosyn for antimicrobial coverage - ? leukocytosis secondary to malignancy. Start Duragesic patch 12mcg to skin every 3 days to help pain control. Continue current pain meds. Continue with IVF for NUNU and support. PT/OT eval in am to help functional status. Discussed with Dr Jimenes this am about pt - still planning port placement on 08/11 if pt wants to proceed with chemo. Midline placed today due to poor IV access. Discussed with daughter about care wishes - have been going back and forth about Chemo vs Hospice. Will see how pt does in the next 1-2 day to help determine which course is better. Recheck CMP and Mg in am due to NUNU and elevated liver enzymes. Repeat CBC in am due to leukocytosis. 08/10 Ab pain waxes and wain. Dilaudid helps, but does feel sleepy afterwards. Notes confusion at times-hard to think clear. No appetite-nothing sounds appealing. Less nausea. Passing stool and flatus. Notes some anal itch and irritation from stools. Very weak-did work with therapy, but ab pain limited her abilities. Breathing able. Creatinine decreased to 1.6. Potassium 3.6. LFT with decrease from yesterday. WBC decreased to 11.6 Will continue Zosyn for antimicrobial coverage - ? leukocytosis secondary to malignancy. Start Duragesic patch 12mcg to skin every 3 days to help pain control. [place] 5 did nothing to help pain - will increase to 10. Watch for confusion. Change IVF to 1/2NS with 20mEq KCl at 75cc/hr. Add Marinol 5mg BID to Remeron 7.5mg at night to help stimulate appetite. Could advance diet to Regular as nausea decreasing. PT/OT eval in am to help functional status. Recheck CMP and Mg in am due to NUNU and elevated liver enzymes. Repeat CBC in am due to leukocytosis. Did discuss case with daughter - with pt's continued pain and little functional gain, they are leaning towards Hospice care. Daughter will be meeting with to discuss this in detail. Wondering about [facility] as they have inpatient care close to where daughter lives. Currently do not feel pt would be able to function well independently. Discussed with Dr Jimenes - will plan not to place port unless things change. 5/2 Had rough morning-pain and anxiety (thought she was going to ). Oral drive variable, but did find some food that were appealing. Nausea and pain vary. Still very weak and tired. Breathing stable, but needing O2 during the day. Will continue Zosyn for antimicrobial coverage Continue IVF for support Continue Marinol and Remeron 7.5mg to help stimulate appetite. Encourage diet as able. Pt and Family met with [facility] - considering hospice care. Recheck CMP and Mg in am due to NUNU and elevated liver enzymes. Repeat CBC in am due to leukocytosis. 5/3 Nausea with emesis this am. Appetite still very decreased. Ab pain varies-does feel more full and bloated to abdomen. Breathing stable. Strength decreased. [facility] does recommend inpatient hospice care-pt and family in agreement. Will discharge to inpatient hospice care with [facility]. D/C IVF. Continue pain and symptom control as per hospice. Pt to transport to inpatient hospice via private vehicle. See orders for details CHRIS FOX MD August 12, 2016 10:24
[2016-08-12] MEDS ORDERED: MIRT15TA6 PO (10:36)
[2016-08-12] MEDS ORDERED: MAGN400O4 PO (10:36)
[2016-08-12] MEDS ORDERED: SIME125C54 PO (10:36)
[2016-08-12] MEDS ORDERED: ZINC56.7 TOP (10:36)
[2016-08-12] MEDS ORDERED: HYDR-4078 PO (10:36)
[2016-08-12] MEDS ORDERED: FENT1PAT65 TD (10:36)
[2016-08-12] MEDS ORDERED: DRON2.5C PO (10:36)
[2016-08-12] MEDS ORDERED: POLY17PO18 PO (10:36)
--- NOTE | 2016-08-12 11:23 | NUR ---
CM CM IN TO VISIT WITH PT, PT TO BE DC'D TO [facility] LATER TODAY. PT DENIES FURTHER NEEDS AT THIS TIME AND IS AWARE TO CALL CM SHOULD NEEDS ARISE.
--- NOTE | 2016-08-12 15:47 | NUR ---
Discharge. VSS. O2 at 2L on patient's own tank. Patient transferred with 2x assistance and gait belt to wheelchair. Transported by wheelchair to front entrance. Daughter driving patient to [facility] inpatient unit at [place]. Discharge instructions given, and daughter verbalized understanding. Fentanyl patch on patient's left shoulder. Rain and midline remain in place per and hospice wishes.
--- NOTE | 2016-08-12 15:52 | NUR ---
Pt declines to participate in PT this date stating "I don't know how many more times I need to say this Im in the process of dying, I'm going to hospice I don't need physical therapy". Will continue to follow and treat according to POC. Please call [phone] with any questions.
--- NOTE | 2016-08-12 16:23 | NUR ---
CHARTING REVIEWED THIS RN HAS REVIEWED JIMMY ANNE'S CHARTING FOR 08/12.
--- NOTE | 2016-08-13 10:48 | DSF ---
ADMISSION DIAGNOSIS Acute kidney injury. DISCHARGE DIAGNOSIS Acute kidney injury - improved. ASSOCIATED CONDITIONS AND COMPLICATIONS Hypokalemia (present on admission) - improved. Abdominal pain. Abdominal carcinomatosis. Metastatic colon cancer. Elevated liver enzymes. 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 Hypertension. Coronary artery disease. Dyslipidemia. Stage 3 chronic kidney disease. Nocturnal hypoxemia. Hard of hearing. Sigmoid diverticulosis. Right shoulder pain. Generalized debility. PROCEDURES 08/10/2016: Right shoulder injection with 80 mg of Kenalog. CONSULTS PT, OT Dr. Walton [facility] CLINICAL RESUME Ms. Martinez is an 85-year-old female with heart disease, hypertension, dyslipidemia and diagnosis of colon cancer earlier this year. She was scheduled to have port placement on August 11 so chemotherapy could be initiated. Unfortunately, over the past several days, she has been having increasing abdominal pain and nausea. She was started on lactulose to help with bowel function but has not had bowel movement on day of presentation. She denies fevers, chills, chest pain or shortness of breath. She does have constant pain rated 7/10 in lower quadrant. Appetite has been diminished. She presented to emergency room for evaluation. Her white count is elevated at 14.3. Creatinine is elevated at 2.3, but potassium is decreased at 3.2. CT scan showed evidence of carcinomatosis. In light of her significant pain, discomfort and acute kidney injury, hospitalist service was notified and patient was subsequently placed in inpatient admission status at [facility] for further evaluation and treatment. For complete details of the H&P refer to the medical record. LABORATORY White blood count is 14.3 with hemoglobin 10.8, hematocrit 34.6, MCV 73.0 and platelets 404,000. Serum sodium is 140, potassium 3.2, chloride 102, CO2 22, BUN 42 with creatinine 2.3, GFR 20 and blood glucose 109. Magnesium is 2.5. AST is 21 with ALT 34. Lactate 0.9. UA reveals low specific gravity of 1.010 with trace protein. Stool for C. diff toxin B gene is negative. HOSPITAL COURSE The patient was placed in inpatient admission status at [facility] under the hospitalist service. She was started on IV fluids for hydration. Zosyn was initiated secondary to her leukocytosis and ascites. Lab was monitored. By hospital day #1 creatinine was starting to show some decrease at 2.3. Potassium also decreased - as she was making urine we did initiate IV potassium replacement. We did not feel she would tolerate oral potassium well secondary to her nausea and abdominal pain. We continued with tito Cunningham, trying [place] to see if this would help. We did stop her lactulose as she felt it was contributing some to abdominal pain and discomfort. MiraLAX was started b.i.d. to help with bowel motivation. As her appetite was quite diminished, Remeron was started at 7.5 mg nightly. Hospital course was one of very little overall improvement. Pain was quite persistent during the hospitalization. Ultimately, Duragesic patch was added. Despite consulting with PT and OT, we did not see interval gains in her functional status. The patient did report that she was planning to see Dr. Duval for a shoulder injection. We did consult with Dr. Walton for possibility of a shoulder injection to help with her pain and discomfort; Maximo Adame was able to provide Kenalog injection to her right shoulder which was well tolerated. Oral drive was variable but appetite still remained quite dismal, despite initiation of Remeron and Marinol. Ultimately, the patient and family members felt hospice care would be prudent, given her significant pain and symptoms. They did not feel she was strong or able enough to tolerate chemotherapy. They did meet with [facility]. The patient was living independently prior to her admission and with her significant decline it is not feasible for her to return home. Arrangements were made for the patient to be placed in inpatient admission at [facility] to continue with pain medication adjustment and work on further care options. By time of discharge the patient's vitals were stable and she was afebrile. Her leukocytosis, while showing some decrease, did increase during hospitalization but no definitive etiology source was found (possibly elevation could be due to Zosyn initiated). Potassium showed elevation at 5.8, but there was significant homolysis. Her creatinine had stabilized to 1.6. Liver enzymes increased during the hospitalization but had some trend downward, with AST being 49 by time of discharge and ALT being 42. She was requiring oxygen during the day whereas before it was just needed at night. She was able to be discharged to inpatient [facility] in stable condition. Narrative disclaimer: Above narrative is a brief summary of the patient's hospitalization; for complete details of hospital course, refer to the medical record. DISCHARGE CONDITION Fair - terminal. ACTIVITIES As tolerated. DIET Regular. MEDICATIONS Marinol 5 mg b.i.d. Fentanyl 25 mcg to skin every third day. [place] 10/325 one q.4h. p.r.n. pain. MOM 30 ml p.r.n. constipation. Remeron 7.5 mg q.h.s. MiraLAX 17 g b.i.d. with meals p.r.n. constipation. Simethicone 125 mg q.6h. p.r.n. gas. Desitin topically p.r.n. anal irritation. Tylenol 1000 mg q.8h. p.r.n. pain. Norvasc 5 mg daily. Benadryl 25 mg q4h allergy symptoms. Lorazepam 0.5 mg t.i.d. p.r.n. anxiety. Zofran 4 mg ODT q.6h. p.r.n. nausea. Stop hydralazine. Stop ibuprofen. Stop lactulose. Stop Niacin. Stop Simvastatin. Stop Maxzide. FOLLOWUP The patient will be followed with [facility] for medical care. INSTRUCTION TO PATIENT The patient was instructed on her diagnosis and treatments provided. She was encouraged on oral intake as she can tolerate. She will work with hospice to help manage her pain and symptoms. Should problems or need occur, she will be in contact with the nursing staff at [facility]. She voiced understanding of the above. Time spent discharge greater than 35 minutes. MTDD
== END 2016-08-12 16:04 | disposition hospice, inpatient (51) | DRG 683 ==
LOC: ED 16:41 → EDHOLD 19:33 → MED 20:05
PROVIDERS: ADMIT Hospitalist; ATTEND Hospitalist
PROC: 3E0U33Z Introduction of Anti-inflammatory into Joints, Percutaneous Approach (ICD-10-PCS; principal; 2016-08-11)
PROC: 3E0U3BZ Introduction of Anesthetic Agent into Joints, Percutaneous Approach (ICD-10-PCS; 2016-08-11)
DX: N17.9 Acute kidney failure, unspecified (principal); C78.6 Secondary malignant neoplasm of retroperitoneum and peritoneum; C18.9 Malignant neoplasm of colon, unspecified; E87.6 Hypokalemia; I12.9 Hypertensive chronic kidney disease with stage 1 through stage 4 chronic kidney disease, or unspecified chronic kidney disease; N18.3 Chronic kidney disease, stage 3 (moderate); I25.10 Atherosclerotic heart disease of native coronary artery without angina pectoris; E78.5 Hyperlipidemia, unspecified; Z66 Do not resuscitate; R63.0 Anorexia; K57.30 Diverticulosis of large intestine without perforation or abscess without bleeding; M25.511 Pain in right shoulder
CPT/HCPCS: 36415; 36569; 80053; 81003; 83605; 83690; 83735; 85025; 87040; 87493; 93005; 96361; 96374; 96375